=== PATIENT | male | born 1955 | race Asian ===

== ENCOUNTER → 2017-02-24 | Outpatient (CLI) | payer BC ==
[~2017-02-24] MED LIST: ALLO300T2 PO; AMIO0.1T PO; ASCO100061 PO; ASPI81TA28 PO; ATOR-26 PO; BUPRTAB51 PO; CARV12.52 PO; CLON0.5T3 PO; CYAN500T PO; IRBE-37 PO; MAGN500T4 PO; NIFE60TA55 PO; OMEG1200 PO
== END | disposition home or self-care (01) ==
LOC: C.LABSPEC 13:13
PROVIDERS: ATTEND Dermatology
DX: L08.9 Local infection of the skin and subcutaneous tissue, unspecified (principal); L02.426 Furuncle of left lower limb

== ENCOUNTER → 2017-02-24 | Outpatient (CLI) | payer BC | END | disposition home or self-care (01) | LOC: C.PATHSPEC 13:58 | PROVIDERS: ATTEND Dermatology | DX: D23.5 Other benign neoplasm of skin of trunk (principal) ==

== ENCOUNTER → 2017-04-07 | Outpatient (CLI) | payer BC | END | disposition home or self-care (01) | LOC: C.PATHSPEC 17:17 | PROVIDERS: ATTEND Dermatology | DX: L57.0 Actinic keratosis (principal); L81.4 Other melanin hyperpigmentation; L57.8 Other skin changes due to chronic exposure to nonionizing radiation ==

== ENCOUNTER → 2017-04-23 | Outpatient (CLI) | payer BC ==
[2017-04-23 11:10] LABS: ALT/SGPT 18 U/L (12-78); BLOOD UREA NITROGEN 14 mg/dl (7-18); BUN/CREATININE RATIO 12.3 (10-20); CARBON DIOXIDE 27 mmol/L (21-32); CHLORIDE 107 mmol/L (98-107); CHOLESTEROL 159 mg/dl (0-200); GLUCOSE 97 mg/dl (70-99); POTASSIUM 3.6 mmol/L (3.5-5.1); SODIUM 142 mmol/L (136-145); TRIGLYCERIDES 107 mg/dl (0-150); VERY LOW DENSITY LIPOPROT CALC 21 mg/dl
[2017-04-23 11:20] LABS: ALB/GLOB RATIO 0.9 (0.9-2); ALKALINE PHOSPHATASE 112 U/L (45-117); AST/SGOT 14 U/L (15-37); CHOLESTEROL/HDL RATIO 2.7; HDL CHOLESTEROL 60 mg/dl; LDL CHOLESTEROL CALCULATED 78 mg/dl; THYROID STIMULATING HORMONE 0.563 uIu/ml (0.300-4.500)
[2017-04-23 12:20] LABS: CALCIUM 8.5 mg/dl (8.5-10.1)
== END | disposition home or self-care (01) ==
LOC: C.LABBC 08:13
PROVIDERS: ATTEND Family Medicine
DX: E78.5 Hyperlipidemia, unspecified (principal); I25.10 Atherosclerotic heart disease of native coronary artery without angina pectoris; Z79.899 Other long term (current) drug therapy

== ENCOUNTER → 2017-10-26 | Outpatient (CLI) | payer BC | END | disposition home or self-care (01) | LOC: C.LABBC 11:49 | PROVIDERS: ATTEND Psychiatry & Neurology Psychiatry | DX: F33.1 Major depressive disorder, recurrent, moderate (principal) ==

== ENCOUNTER → 2018-01-17 | Outpatient (CLI) | payer OTHER ==
[2018-01-17 10:52] LABS: BASO % 0.9 %; BASO ABS # 0.06 K/uL (0-0.2); EOS % 4.7 %; EOS ABS # 0.32 K/uL (0-0.5); HEMATOCRIT 48.3 % (42-52); HEMOGLOBIN 15.7 g/dL (14.0-18.0); IG# 0.01 K/uL (0.00-0.02); LYMPH % 32.2 %; LYMPH ABS # 2.19 K/uL (1.2-3.4); MEAN CELL VOLUME 91.7 fL (80-100); MEAN CORPUSCULAR HEMOGLOBIN 29.8 pg (25-34); MEAN CORPUSCULAR HGB CONC 32.5 g/dl (32-36); MEAN PLATELET VOLUME 9.7 fL (7.4-10.4); MONO ABS # 0.75 K/uL (0.11-0.59); NEUT % 51.1 %; NEUT ABS # 3.47 K/uL (1.4-6.5); PLATELET COUNT 195 K/uL (130-400); RED CELL DISTRIBUTION WIDTH CV 12.3 % (11.5-14.5); RED CELL DISTRIBUTION WIDTH SD 41.3 fL (36.4-46.3)
[2018-01-17 11:10] LABS: ALBUMIN 3.8 gm/dl (3.4-5.0); ALT/SGPT 20 U/L (12-78); BLOOD UREA NITROGEN 18 mg/dl (7-18); CALCIUM 8.8 mg/dl (8.5-10.1); CARBON DIOXIDE 28 mmol/L (21-32); CHOLESTEROL 171 mg/dl (0-200); CREATININE 1.36 mg/dl (0.60-1.40); GLUCOSE 99 mg/dl (70-99); POTASSIUM 3.9 mmol/L (3.5-5.1); SODIUM 141 mmol/L (136-145)
[2018-01-17 11:13] LABS: ALKALINE PHOSPHATASE 120 U/L (45-117); AST/SGOT 14 U/L (15-37); LDL CHOLESTEROL CALCULATED 96 mg/dl; TOTAL PROTEIN 7.7 gm/dl (6.4-8.2)
== END | disposition home or self-care (01) ==
LOC: C.LABBC 08:33
PROVIDERS: ATTEND Family Medicine Adult Medicine
DX: Z00.00 Encounter for general adult medical examination without abnormal findings (principal); M10.9 Gout, unspecified; I10 Essential (primary) hypertension; E78.5 Hyperlipidemia, unspecified; Z51.81 Encounter for therapeutic drug level monitoring; Z79.899 Other long term (current) drug therapy

== ENCOUNTER 2022-05-26 22:11 | Inpatient (IN) ==
[2022-05-26 23:03] LABS: Basophils # (auto) 0.05 K/uL (0-0.2); Basophils % (auto) 0.6 %; Eosinophils # (auto) 0.25 K/uL (0-0.50); Hematocrit (blood only) 41.1 % (40.1-51.0); Immature Granulocytes # (auto) 0.02 K/uL (0.00-0.02); Immature Granulocytes % (auto) 0.2 %; Lymphocytes % (auto) 14.4 %; Mean Corpuscular Hemoglobin 31.5 pg (25.0-34.0); Mean Corpuscular Hgb Conc 34.1 g/dL (32.0-36.0); Mean Corpuscular Volume 92.4 fL (80.0-100.0); Mean Platelet Volume 8.8 fL (9.4-12.4); Monocytes # (auto) 0.78 K/uL (0.24-0.82); Monocytes % (auto) 9.4 %; Neutrophils # (auto) 6.02 K/uL (1.4-6.5); Neutrophils % (auto) 72.4 %; Platelet Count 152 K/uL (130-400); RDW Coefficient of Variation 11.8 % (11.5-14.5); RDW Standard Deviation 39.9 fL (36.4-46.3); Red Blood Count 4.45 M/uL (4.63-6.08); White Blood Count 8.32 K/ul (4.8-10.8)
--- NOTE | 2022-05-26 23:10 | Emergency Department Note ---
History of Present Illness General Chief complaint: Rectal Bleed Stated complaint: DIVERTICULITIS Time Seen by Provider: 05/26/22 22:58 Source: patient Mode of arrival: ambulatory Limitations: no limitations History of Present Illness Provider complaint: GI bleed Onset (ago): hour(s) 2 Maximum Pain Intensity: 3 This is a 66-year-old male presents emergency department complaining of GI bleed which began 1-1/2 to 2 hours ago. Patient had been seen and evaluated earlier today in the ER for left lower quadrant abdominal pain. He was diagnosed with diverticulitis and started on antibiotics. Patient denies any prior history of GI bleed. States he does get colonoscopies every 3 years due to history of polyps although they have always far been benign. Patient does use aspirin and Plavix daily due to prior history of CABG as well as stroke. Patient states he does feel dizzy and lightheaded when he stands up. Patient states the original pain and left lower quadrant has dulled however he feels a sense of abdominal pressure and bloating throughout. He denies fevers, chills, nausea, vomiting. Pt seen during a time of high acuity and national emergency pandemic while wearing PPE. Home Medications Medication Instructions Recorded Confirmed Type ascorbic acid (vitamin C) 1,000 mg 1,000 mg PO QAM 04/24/19 05/26/22 History tablet (Vitamin C) cyanocobalamin (vitamin B-12) 500 500 mcg PO QAM 04/24/19 05/26/22 History mcg tablet (Vitamin B-12) multivitamin 1 tab PO QAM 04/24/19 05/26/22 History fluticasone propionate 50 1 spray intranasal DAILY PRN 11/07/19 05/26/22 History mcg/actuation nasal Allergy Symptoms spray,suspension nitroglycerin 0.4 mg sublingual 0.4 mg sublingual UD PRN Angina 07/29/20 05/26/22 Rx tablet (Nitrostat) #30 tabs triamcinolone acetonide 0.1 % 1 applic topical DAILY PRN scotal 02/11/21 05/26/22 History topical cream itch lutein 20 mg tablet 20 mg PO QAM 06/11/21 05/26/22 History vitamin E (dl, acetate) 180 mg 45 mg PO QAM 06/11/21 05/26/22 History (400 unit) capsule prednisone 10 mg tablet 10 mg PO TID PRN gout flare ups #9 06/13/21 05/26/22 Rx tabs amlodipine 5 mg tablet 5 mg PO QAM #90 tabs 07/29/21 05/26/22 Rx allopurinol 100 mg tablet 100 mg PO QAM 08/26/21 05/26/22 History aspirin 81 mg tablet,delayed 81 mg PO BID #180 tabs 09/01/21 05/26/22 Rx release (Adult Aspirin Regimen) carvedilol 12.5 mg tablet 12.5 mg PO BID #180 tabs 12/22/21 05/26/22 Rx losartan 50 mg tablet 50 mg PO BID #180 tabs 02/23/22 05/26/22 Rx atorvastatin 80 mg tablet 80 mg PO HS #90 tabs 03/25/22 05/26/22 Rx Garlic 1000mg Tablet 1,000 mg PO HS 05/26/22 05/26/22 History Saccharomyces boulardii 250 mg 250 mg PO BID #20 caps 05/26/22 05/26/22 Rx capsule (Florastor) amiodarone 200 mg tablet 200 mg PO HS 05/26/22 05/26/22 History amoxicillin 875 mg-potassium 1 tab PO TID 10 days #30 tabs 05/26/22 05/26/22 Rx clavulanate 125 mg tablet clopidogrel 75 mg tablet 75 mg PO QAM 05/26/22 05/26/22 History omega 2-xrt-psr-fish oil 1,200 mg 1 cap PO HS 05/26/22 05/26/22 History (144 mg-216 mg) capsule (Fish Oil) Allergies Allergy/AdvReac Type Severity Reaction Status Date / Time valacyclovir Allergy Intermediate severe Verified 05/26/22 12:51 back pains codeine Allergy Mild GI SYMPTOMS Verified 05/26/22 12:51 oxycodone AdvReac Mild Nausea Verified 05/26/22 12:51 sulfamethoxazole AdvReac Mild Nausea Verified 05/26/22 12:51 [From Bactrim] trimethoprim [From Bactrim] AdvReac Mild Nausea Verified 05/26/22 12:51 Past Med/Surg History Medical History Anxiety and depression CAD (coronary artery disease) Gout History of asthma A CHILD HTN (hypertension) Hyperlipidemia Myocardial Infarction 1999 Ocular migraine PVC (premature ventricular contraction) Vertebral artery occlusion Surgical History History of cardiac cath 1999 AND 2018 History of colonoscopy History of coronary artery bypass graft X 4 VESSELS IN 1999 X 3 VESSELS IN 2018 History of tonsillectomy Family History Mother Cardiac disorder Breast cancer Family history of diabetes mellitus Unknown Coronary heart disease Hypertension Father Cardiac disorder Myocardial infarction Denies family history of Ovarian cancer Prostate cancer Colorectal cancer Social History Smoking Status: Never smoker Second Hand Exposure: No; Hx Alcohol Use: Yes Alcohol type: hard liquor Alcohol Intake Frequency: 2-3 x/Week Hx Substance Use: No Preferred Language: Chilean Communication Ability: Effective Visual Impairment: Limited Hearing Ability: Normal Marble Setter Required: No Beliefs That Will Affect Care: None marital status: Current Living Situation: Spouse current occupational status: employed 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 How many Children do You have: 1 Feels Safe at Home: Yes Childhood Exposure to Second-Hand Smoke: No caffeine: No Dental Care, Regularly: Yes Physical Activity Frequency: Daily Physical Activity Frequency Comment: 45 mins treadmill Seatbelt Use: always Sunscreen Use: Yes Assistive Devices: Glasses Review of Systems A total of 10 systems reviewed and were otherwise negative All systems reviewed & are unremarkable except as noted in HPI & below Physical Exam Vital Signs Vital Signs - 24 hr 05/26/22 22:11 05/26/22 22:59 05/27/22 00:22 Temperature 36.5 C Temperature Source Temporal Artery Scan Pulse Rate 77 Pulse Rate [Right Finger] 45 L Pulse Rhythm Regular Pulse Strength Normal Respiratory Rate 18 Respiratory Effort / Characteristics Non-Labored Spontaneous Respiratory Depth Normal Respiratory Pattern Regular Blood Pressure Blood Pressure [Left Arm] 123/75 83/49 L Blood Pressure Mean Blood Pressure Mean [Left Arm] 91 60 Blood Pressure Position Sitting Blood Pressure Position [Left Arm] Lying Pulse Oximetry 100 Oxygen Delivery Method Room Air Sepsis Recent Fever Within 48 Hours No Sepsis New/Unexplained Change in Mental Status N/A Sepsis Action Taken by Nursing No Action Required 05/27/22 00:26 05/27/22 00:27 05/27/22 00:28 Temperature Temperature Source Pulse Rate 43 L 43 L Pulse Rate [Right Finger] Pulse Rhythm Pulse Strength Respiratory Rate 14 14 Respiratory Effort / Characteristics Respiratory Depth Respiratory Pattern Blood Pressure 83/49 L Blood Pressure [Left Arm] Blood Pressure Mean 60 Blood Pressure Mean [Left Arm] Blood Pressure Position Blood Pressure Position [Left Arm] Pulse Oximetry Oxygen Delivery Method Sepsis Recent Fever Within 48 Hours Sepsis New/Unexplained Change in Mental Status Sepsis Action Taken by Nursing 05/27/22 00:28 05/27/22 00:30 05/27/22 00:31 Temperature Temperature Source Pulse Rate 45 L Pulse Rate [Right Finger] Pulse Rhythm Pulse Strength Respiratory Rate 20 Respiratory Effort / Characteristics Respiratory Depth Respiratory Pattern Blood Pressure 83/52 L 87/52 L Blood Pressure [Left Arm] Blood Pressure Mean 62 63 Blood Pressure Mean [Left Arm] Blood Pressure Position Blood Pressure Position [Left Arm] Pulse Oximetry Oxygen Delivery Method Sepsis Recent Fever Within 48 Hours Sepsis New/Unexplained Change in Mental Status Sepsis Action Taken by Nursing 05/27/22 00:31 05/27/22 00:34 05/27/22 00:34 Temperature Temperature Source Pulse Rate 46 L 49 L Pulse Rate [Right Finger] Pulse Rhythm Pulse Strength Respiratory Rate 16 16 Respiratory Effort / Characteristics Respiratory Depth Respiratory Pattern Blood Pressure 88/53 L Blood Pressure [Left Arm] Blood Pressure Mean 64 Blood Pressure Mean [Left Arm] Blood Pressure Position Blood Pressure Position [Left Arm] Pulse Oximetry Oxygen Delivery Method Sepsis Recent Fever Within 48 Hours Sepsis New/Unexplained Change in Mental Status Sepsis Action Taken by Nursing 05/27/22 01:08 05/27/22 02:05 05/27/22 02:33 Temperature Temperature Source Pulse Rate Pulse Rate [Right Finger] 59 L 62 56 L Pulse Rhythm Pulse Strength Respiratory Rate 19 16 16 Respiratory Effort / Characteristics Respiratory Depth Respiratory Pattern Blood Pressure Blood Pressure [Left Arm] 134/76 104/59 L 85/58 L Blood Pressure Mean Blood Pressure Mean [Left Arm] 95 74 67 Blood Pressure Position Blood Pressure Position [Left Arm] Pulse Oximetry 96 94 94 Oxygen Delivery Method Room Air Sepsis Recent Fever Within 48 Hours Sepsis New/Unexplained Change in Mental Status Sepsis Action Taken by Nursing 05/27/22 02:51 05/27/22 03:00 05/27/22 03:30 Temperature Temperature Source Pulse Rate 69 60 Pulse Rate [Right Finger] 63 Pulse Rhythm Pulse Strength Respiratory Rate 12 18 20 Respiratory Effort / Characteristics Respiratory Depth Respiratory Pattern Blood Pressure 100/64 115/71 Blood Pressure [Left Arm] 93/62 L Blood Pressure Mean 76 85 Blood Pressure Mean [Left Arm] 72 Blood Pressure Position Blood Pressure Position [Left Arm] Pulse Oximetry 94 96 98 Oxygen Delivery Method Room Air Sepsis Recent Fever Within 48 Hours Sepsis New/Unexplained Change in Mental Status Sepsis Action Taken by Nursing GENERAL: alert, well appearing, well nourished, no distress, non-toxic EYE EXAM: normal conjunctiva, PERRL and EOM's grossly intact OROPHARYNX: no exudate, no erythema, lips, buccal mucosa, and tongue normal and mucous membranes are moist NECK: supple, no nuchal rigidity, no adenopathy, non-tender LUNGS: Clear to auscultation. Normal chest wall mechanics, no w/r/r HEART: no murmurs, S1 normal and S2 normal ABDOMEN: abdomen soft, non-tender, normo-active bowel sounds, no masses, no rebound or guarding. BACK: Back is symmetrical on inspection and there is no deformity, no midline tenderness, no CVA tenderness. SKIN: no rashes and no bruising UPPER EXTREMITIES: upper extremities are grossly normal. FROM, nml pulses b/l. LOWER EXTREMITIES: No pitting edema. FROM, nml pulses b/l. NEURO EXAM: Normal sensorium, cranial nerves II-XII grossly intact, normal speech, no gross weakness of arms, no gross weakness of legs. Gross sensation intact. Course Course 2355: Patient updated on results. Patient did have another episode of bright red blood per rectum. He states he does still feel dizzy and lightheaded when he stands up. 0030: I was called to the room after patient had another episode of bright red blood per rectum and had dropped both his heart rate and blood pressure. On entering the room, patient's heart rate was in the mid 40s, blood pressure 80s over 50s, patient appealed pale and diaphoretic. IV fluids were opened up to give a bolus, and heart rate was slowly improving. Administered Medications Discontinued Medications Piperacillin Sod/Tazobactam Sod (Zosyn) 4.5 gm in 120 mls @ 240 mls/hr IV NOW ONE Stop: 05/27/22 00:24 Last Infusion: 05/27/22 01:09 Dose: 0 mls/hr Documented By: Admin: 05/27/22 00:32 Dose: 240 mls/hr Documented By: ASW Sodium Chloride (Nss 1000ml) 1,000 mls @ 999 mls/hr IV .Q1H1M ONE Stop: 05/27/22 01:34 Last Infusion: 05/27/22 01:09 Dose: 0 mls/hr Documented By: Admin: 05/27/22 00:36 Dose: 999 mls/hr Documented By: ASW Famotidine (Pepcid 20mg Iv Push) 20 mg in 5 mls @ 2.5 mls/min IV NOW STA Stop: 05/27/22 00:55 Last Admin: 05/27/22 01:09 Dose: 2.5 mls/min Documented By: ASW Sodium Chloride (Nss 1000ml) 1,000 mls @ 999 mls/hr IV .Q1H1M ONE Stop: 05/27/22 03:46 Last Admin: 05/27/22 02:57 Dose: 999 mls/hr Documented By: REGINA Ondansetron HCl (Ondansetron Inj 2 Mg/Ml 2 Ml Vial) 4 mg IV NOW STA Stop: 05/27/22 00:55 Last Admin: 05/27/22 01:09 Dose: 4 mg Documented By: ASW Medical Decision Making Differential Diagnosis Differential diagnosis includes etiologies such as diverticulosis, AVM, coagulopathy, colitis, inflammatory bowel disease, malignancy, Kassy-Vincent tear, esophagitis, peptic ulcer disease, variceal bleed, gastritis, epistaxis, fissure, hemorrhoids, as well as others were entertained. Medical Records Attestation: I reviewed the patient's medical records. Home Medications Current Medication List: was personally reviewed by me Laboratory Data Attestation: I reviewed the patient's lab results. Result diagrams: 05/27/22 00:59 05/26/22 22:54 Lab Results 05/26/22 05/26/22 05/26/22 Range/Units 22:54 22:54 22:54 WBC 8.32 (4.8-10.8) K/ul RBC 4.45 L (4.63-6.08) M/uL Hgb 14.0 (14.0-18.0) g/dl Hct 41.1 (40.1-51.0) % MCV 92.4 (80.0-100.0) fL MCH 31.5 (25.0-34.0) pg MCHC 34.1 (32.0-36.0) g/dL RDW Std Deviation 39.9 (36.4-46.3) fL RDW Coeff of Mayra 11.8 (11.5-14.5) % Plt Count 152 (130-400) K/uL MPV 8.8 L (9.4-12.4) fL Immature Gran % (Auto) 0.2 % Neut % (Auto) 72.4 % Lymph % (Auto) 14.4 % [place] % (Auto) 9.4 % Eos % (Auto) 3.0 % Baso % (Auto) 0.6 % Neut # (Auto) 6.02 (1.4-6.5) K/uL Lymph # (Auto) 1.20 (1.2-3.4) K/uL [place] # (Auto) 0.78 (0.24-0.82) K/uL Eos # (Auto) 0.25 (0-0.50) K/uL Baso # (Auto) 0.05 (0-0.2) K/uL Immature Gran # (Auto) 0.02 (0.00-0.02) K/uL PT 11.3 (9.0-12.0) Seconds INR 1.1 (0.9-1.1) APTT 28.2 (21.0-31.0) Seconds PTT Ratio 1.0 Sodium 136 (136-145) mmol/L Potassium 3.5 (3.5-5.1) mmol/L Chloride 104 (98-107) mmol/L Carbon Dioxide 27 (21-32) mmol/L Anion Gap 5 (3-11) BUN 13 (6-23) mg/dl Creatinine 1.24 (0.6-1.4) mg/dl Est Cr Clr Drug Dosing 54.0 ml/min Est GFR ( Amer) 69.3 ml/min Est GFR (Non-Af Amer) 59.8 ml/min BUN/Creatinine Ratio 10.5 (10-20) Glucose 119 H (70-99(Fasting)) mg/dl Lactate (0.4-2.0) mmol/L Calcium 8.1 L (8.5-10.1) mg/dl Magnesium 1.9 (1.7-2.4) mg/dl Total Bilirubin 1.4 H (0.2-1.0) mg/dl Direct Bilirubin 0.3 H (0-0.2) mg/dl AST 18 (13-39) U/L ALT 21 (7-52) U/L Alkaline Phosphatase 79 (34-104) U/L Total Protein 6.0 (6.0-8.3) gm/dl Albumin 3.6 (3.4-5.0) gm/dl Lipase 4 L (11-82) U/L Procalcitonin (0-0.5) ng/ml SARS-CoV-2, RNA, NAAT (NEGATIVE) Blood Type Antibody Screen 05/26/22 05/26/22 05/26/22 Range/Units 22:54 23:12 23:19 WBC (4.8-10.8) K/ul RBC (4.63-6.08) M/uL Hgb (14.0-18.0) g/dl Hct (40.1-51.0) % MCV (80.0-100.0) fL MCH (25.0-34.0) pg MCHC (32.0-36.0) g/dL RDW Std Deviation (36.4-46.3) fL RDW Coeff of Mayra (11.5-14.5) % Plt Count (130-400) K/uL MPV (9.4-12.4) fL Immature Gran % (Auto) % Neut % (Auto) % Lymph % (Auto) % [place] % (Auto) % Eos % (Auto) % Baso % (Auto) % Neut # (Auto) (1.4-6.5) K/uL Lymph # (Auto) (1.2-3.4) K/uL [place] # (Auto) (0.24-0.82) K/uL Eos # (Auto) (0-0.50) K/uL Baso # (Auto) (0-0.2) K/uL Immature Gran # (Auto) (0.00-0.02) K/uL PT (9.0-12.0) Seconds INR (0.9-1.1) APTT (21.0-31.0) Seconds PTT Ratio Sodium (136-145) mmol/L Potassium (3.5-5.1) mmol/L Chloride (98-107) mmol/L Carbon Dioxide (21-32) mmol/L Anion Gap (3-11) BUN (6-23) mg/dl Creatinine (0.6-1.4) mg/dl Est Cr Clr Drug Dosing ml/min Est GFR ( Amer) ml/min Est GFR (Non-Af Amer) ml/min BUN/Creatinine Ratio (10-20) Glucose (70-99(Fasting)) mg/dl Lactate 0.8 (0.4-2.0) mmol/L Calcium (8.5-10.1) mg/dl Magnesium (1.7-2.4) mg/dl Total Bilirubin (0.2-1.0) mg/dl Direct Bilirubin (0-0.2) mg/dl AST (13-39) U/L ALT (7-52) U/L Alkaline Phosphatase (34-104) U/L Total Protein (6.0-8.3) gm/dl Albumin (3.4-5.0) gm/dl Lipase (11-82) U/L Procalcitonin < 0.05 (0-0.5) ng/ml SARS-CoV-2, RNA, NAAT (NEGATIVE) Blood Type O Positive Antibody Screen NEGATIVE 05/27/22 05/27/22 Range/Units 00:33 00:59 WBC (4.8-10.8) K/ul RBC (4.63-6.08) M/uL Hgb 12.4 L (14.0-18.0) g/dl Hct 37.2 L (40.1-51.0) % MCV (80.0-100.0) fL MCH (25.0-34.0) pg MCHC (32.0-36.0) g/dL RDW Std Deviation (36.4-46.3) fL RDW Coeff of Mayra (11.5-14.5) % Plt Count (130-400) K/uL MPV (9.4-12.4) fL Immature Gran % (Auto) % Neut % (Auto) % Lymph % (Auto) % [place] % (Auto) % Eos % (Auto) % Baso % (Auto) % Neut # (Auto) (1.4-6.5) K/uL Lymph # (Auto) (1.2-3.4) K/uL [place] # (Auto) (0.24-0.82) K/uL Eos # (Auto) (0-0.50) K/uL Baso # (Auto) (0-0.2) K/uL Immature Gran # (Auto) (0.00-0.02) K/uL PT (9.0-12.0) Seconds INR (0.9-1.1) APTT (21.0-31.0) Seconds PTT Ratio Sodium (136-145) mmol/L Potassium (3.5-5.1) mmol/L Chloride (98-107) mmol/L Carbon Dioxide (21-32) mmol/L Anion Gap (3-11) BUN (6-23) mg/dl Creatinine (0.6-1.4) mg/dl Est Cr Clr Drug Dosing ml/min Est GFR ( Amer) ml/min Est GFR (Non-Af Amer) ml/min BUN/Creatinine Ratio (10-20) Glucose (70-99(Fasting)) mg/dl Lactate (0.4-2.0) mmol/L Calcium (8.5-10.1) mg/dl Magnesium (1.7-2.4) mg/dl Total Bilirubin (0.2-1.0) mg/dl Direct Bilirubin (0-0.2) mg/dl AST (13-39) U/L ALT (7-52) U/L Alkaline Phosphatase (34-104) U/L Total Protein (6.0-8.3) gm/dl Albumin (3.4-5.0) gm/dl Lipase (11-82) U/L Procalcitonin (0-0.5) ng/ml SARS-CoV-2, RNA, NAAT NEGATIVE (NEGATIVE) Blood Type Antibody Screen ECG Data Attestation: I personally reviewed and interpreted this ECG as follows: Indication: + abdominal pain Rate (beats per minute): 62 Rhythm: + normal sinus ECG Intervals/blocks: + First degree AV block, + Normal QRS and + Normal QT ECG [place]: + Left axis deviation ECG ST segments: + Nonspecific ST abnormalities MDM Narrative An order was placed for continuous cardiac monitoring. The monitor shows a rate of 68__ with __normal sinus_ rhythm. This is a 66-year-old male presents emergency department for the second time in 24 hours due to concern for recurrent GI bleed. Patient recently seen and evaluated with labs and CT imaging diagnosed with uncomplicated diverticulitis. No prior history of GI bleed. Patient had several episodes at home, and upon presenting the emergency room had several more episodes of bright red blood per rectum. Patient did have an episode that appeared to be a vasovagal reaction with bradycardia and hypotension, diaphoresis and pallor. This did resolve. Patient was given IV fluids. Initial labs reassuring with stable H&H. Following several episodes of bright red blood per rectum, repeat H&H drawn and sent and was mildly decreased. No elevation of BUN. I do not suspect upper GI bleed. Patient does use aspirin and Plavix due to prior history of CABG and CVA. No focal abdominal pain. Patient was given another dose of IV antibiotics in order to help keep him n.p.o. as a precaution. Patient otherwise was hemodynamically stable. Type and screen sent as a precaution. COVID-negative. Lactic acid and procalcitonin negative. We discussed all results at bedside. Case discussed with hospitalist for additional evaluation and management. Impression & Plan GI bleed, Diverticulitis, Abdominal pain Discharge Plan Visit Data Chief Complaint: Rectal Bleed Stated Complaint: DIVERTICULITIS ED Provider: Jakcie Cuellar Discharge Problem: GI bleed, Diverticulitis, Abdominal pain Forms Stand Alone Forms: [facility] [place] [employer] Prescriptions Prescriptions: No Action prednisone 10 mg tablet 10 mg PO TID PRN (Reason: gout flare ups) Qty: 9 0RF amlodipine 5 mg tablet 5 mg PO QAM Qty: 90 3RF aspirin [Adult Aspirin Regimen] 81 mg tablet,delayed release (DR/EC) 81 mg PO BID Qty: 180 1RF carvedilol 12.5 mg tablet 12.5 mg PO BID Qty: 180 3RF Rx Instructions: must administer with a meal/food losartan 50 mg tablet 50 mg PO BID Qty: 180 3RF atorvastatin 80 mg tablet 80 mg PO HS Qty: 90 3RF nitroglycerin [Nitrostat] 0.4 mg tablet, sublingual 0.4 mg sublingual UD PRN (Reason: Angina) Qty: 30 1RF triamcinolone acetonide 0.1 % cream 1 applic topical DAILY PRN (Reason: scotal itch) vitamin E (dl, acetate) 400 unit capsule 45 mg PO QAM lutein 20 mg tablet 20 mg PO QAM Rx Instructions: give with meal/snack multivitamin Tablet 1 tab PO QAM ascorbic acid (vitamin C) [Vitamin C] 1,000 mg Tablet 1,000 mg PO QAM cyanocobalamin (vitamin B-12) [Vitamin B-12] 500 mcg Tablet 500 mcg PO QAM fluticasone propionate 50 mcg/actuation spray,suspension 1 spray INTRANASAL DAILY PRN (Reason: Allergy Symptoms) allopurinol 100 mg tablet 100 mg PO QAM omega 7-vaa-uts-fish oil [Fish Oil] 1,200 (144-216) mg Capsule 1 cap PO HS Garlic 1000mg Tablet 1,000 mg PO HS amiodarone 200 mg tablet 200 mg PO HS clopidogrel 75 mg tablet 75 mg PO QAM Saccharomyces boulardii [Florastor] 250 mg capsule 250 mg PO BID Qty: 20 0RF amoxicillin-pot clavulanate 875-125 mg tablet 1 tab PO TID 10 Days Qty: 30 0RF Referrals Referrals: Faizan Negrete DO [Primary Care Provider] -
[2022-05-26 23:15] LABS: INR 1.1 (0.9-1.1); Partial Thromboplastin Time 28.2 Seconds (21.0-31.0); Prothrombin Time 11.3 Seconds (9.0-12.0)
[2022-05-26 23:25] LABS: Albumin Level 3.6 gm/dl (3.4-5.0); BUN Creatinine Ratio 10.5 (10-20); Bilirubin Direct 0.3 mg/dl (0-0.2); Bilirubin,Total 1.4 mg/dl (0.2-1.0); Calcium 8.1 mg/dl (8.5-10.1); Est GFR (African American) 69.3 ml/min; Est GFR (Non-African American) 59.8 ml/min; Potassium 3.5 mmol/L (3.5-5.1)
[2022-05-26] MEDS ORDERED: PIPERACILLIN/TAZOBACTAM 4.5 GM/120 ML BAG IV ONE (23:55)
--- NOTE | 2022-05-27 00:26 | History & Physical Report ---
Date of Service May 27, 2022 Assessment & Plan (1) Acute lower gastrointestinal bleeding: Plan: Acute-onset bright red blood per rectum, with at least 4-5 episodes in last 6 hours. In context of several days of abdominal pain, presumably due to acute diverticulitis (see below). At this point, most likely source is from diverticulitis, although this is atypical as bleeding typically occurs with diverticulosis rather than diverticulitis. Additionally patient has completely thrombosed internal iliac arteries, raising suspicion for other abdominal arterial disease and possible mesenteric ischemia as source of bleeding, although less likely. Requires further evaluation. - admit to PCU - CTA A/P ordered in AM to evaluate for ischemia (24 hours after previous study) - Hgb 14 --> 12.4 following recurrent episodes of hematochezia - s/p NSS 1L bolus - continue with LR @125cc/hr - s/p Pepcid 20mg IV in ED - continue with Protonix 40mg IV daily for now (patient reports heartburn currently) - GI consulted - appreciate recs - NPO pending GI evaluation - trend H/H Q4H - transfuse for Hgb <8 (given symptoms) (2) Hypotension: Plan: Resolved following NSS 1L bolus. - Continue with maintenance IVFs as stated above - hold home BP meds (3) Thromboembolism of internal iliac artery: Plan: New finding per CT A/P done yesterday. Patient does not have known cancer, has had stable weight, is physically active, and denies family h/o clotting disorders. - hypercoagulability panel ordered - consulted Heme/Onc - appreciate recs (4) Diverticulitis: Plan: Several days of LLQ abdominal pain, with uncomplicated diverticulitis (no perforation or abscess) per CT A/P. Was started on Augmentin yesterday. - started on Zosyn in ED - continue for now - trend blood cx and adjust abx as necessary (5) CAD (coronary artery disease): Plan: Chronic. S/p CABG in 1999. Follows with [facility]. - Hold home Aspirin and Clopidogrel due to acute GI bleed. (6) H/O: stroke: Plan: In 2020. Follows with [facility] [place] [facility]. - hold anti-platelet therapy as stated above (7) Vertebral artery occlusion: Plan: Chronic right vertebral artery occlusion. ?Hypercoagulable disorder. 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 F/w [facility]. 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 (10) HTN (hypertension): Plan: Hold home Amlodipine, Carvedilol and Losartan, as stated above (11) Dyslipidemia: Plan: Continue home Atorvastatin (12) Gout: Plan: Hold Allopurinol for now due to NPO/GI bleed. Plan FEN/GI: NPO, LR @125cc/hr DVT Prophylaxis: SCDs, no chemoppx due to GI bleed Code Status: full code Disposition: PCU History of Present Illness Chief Complaint: rectal bleed Primary Care Provider: Faizan Negrete DO Omid Reed is a 66yo male with PMHx significant for CAD (CABG in 1999, on Aspirin/Plavix), h/o CVA in 2020, frequent PVCs (loop recorder in place, on Amiodarone), 1st degree AV block, restrictive lung disease (due to Amio), HTN, HLD and gout, who presented to [facility] ED on 05/27 for concern of GI bleed that star mirlande several hours ago. Patient was in the ED yesterday for LLQ abdominal pain - was diagnosed with diverticulitis and discharged from ED on Augmentin. Patient reports that his pain was mildly improved before bleeding began, although he does report development of generalized lower abdominal fullness before bleeding began. Reports associated dizziness/lightheadedness. Denies N/V or hematemesis. Denies fever/chills. Denies recent travel or change in diet. Does not eat out. Denies h/o GI bleed. Has colonoscopies every 3 years for polyps - have always been benign. Patient is usually very active - usually walks on treadmill ~1hr per day; however he stopped several days ago due to abdominal pain. He denies family history of clotting disorders or bleeding. Denies smoking or drug use. Only has a drink occasionally. In the ED the patient was afebrile and initially hemodynamically stable on room air. However he had several episodes of large BMs with bright red blood with resultant decrease in BP to 80s/50s. He received NSS 1L bolus and pressures improved to 120s/80s. Labs significant for TBili 1.4. Hgb is 14 although down from 15.6 earlier in the day. Otherwise CBC/CMP/lipase unremarkable. Of note, CT A/P done yesterday shows right colon diverticulitis without abscess or perforation. 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 Patient was given NSS 1L bolus, as stated above, Zofran x1, Pepcid IV, and Zosyn in ED. Blood cx collected before initiation of abx. Allergies Allergy/AdvReac Type Severity Reaction Status Date / Time valacyclovir Allergy Intermediate severe Verified 05/26/22 12:51 back pains codeine Allergy Mild GI SYMPTOMS Verified 05/26/22 12:51 oxycodone AdvReac Mild Nausea Verified 05/26/22 12:51 sulfamethoxazole AdvReac Mild Nausea Verified 05/26/22 12:51 [From Bactrim] trimethoprim [From Bactrim] AdvReac Mild Nausea Verified 05/26/22 12:51 Home Medications Medication Instructions Recorded Confirmed Type ascorbic acid (vitamin C) 1,000 mg 1,000 mg PO QAM 04/24/19 05/26/22 History tablet (Vitamin C) cyanocobalamin (vitamin B-12) 500 500 mcg PO QAM 04/24/19 05/26/22 History mcg tablet (Vitamin B-12) multivitamin 1 tab PO QAM 04/24/19 05/26/22 History fluticasone propionate 50 1 spray intranasal DAILY PRN 11/07/19 05/26/22 History mcg/actuation nasal Allergy Symptoms spray,suspension nitroglycerin 0.4 mg sublingual 0.4 mg sublingual UD PRN Angina 07/29/20 05/26/22 Rx tablet (Nitrostat) #30 tabs triamcinolone acetonide 0.1 % 1 applic topical DAILY PRN scotal 02/11/21 05/26/22 History topical cream itch lutein 20 mg tablet 20 mg PO QAM 06/11/21 05/26/22 History vitamin E (dl, acetate) 180 mg 45 mg PO QAM 06/11/21 05/26/22 History (400 unit) capsule prednisone 10 mg tablet 10 mg PO TID PRN gout flare ups #9 08/06/21 07/19/22 Rx tabs amlodipine 5 mg tablet 5 mg PO QAM #90 tabs 07/29/21 05/26/22 Rx allopurinol 100 mg tablet 100 mg PO QAM 08/26/21 05/26/22 History aspirin 81 mg tablet,delayed 81 mg PO BID #180 tabs 09/01/21 05/26/22 Rx release (Adult Aspirin Regimen) carvedilol 12.5 mg tablet 12.5 mg PO BID #180 tabs 12/22/21 05/26/22 Rx losartan 50 mg tablet 50 mg PO BID #180 tabs 02/23/22 05/26/22 Rx atorvastatin 80 mg tablet 80 mg PO HS #90 tabs 03/25/22 05/26/22 Rx Garlic 1000mg Tablet 1,000 mg PO HS 05/26/22 05/26/22 History Saccharomyces boulardii 250 mg 250 mg PO BID #20 caps 05/26/22 05/26/22 Rx capsule (Florastor) amiodarone 200 mg tablet 200 mg PO HS 05/26/22 05/26/22 History amoxicillin 875 mg-potassium 1 tab PO TID 10 days #30 tabs 05/26/22 05/26/22 Rx clavulanate 125 mg tablet clopidogrel 75 mg tablet 75 mg PO QAM 05/26/22 05/26/22 History omega 0-mib-vcs-fish oil 1,200 mg 1 cap PO HS 05/26/22 05/26/22 History (144 mg-216 mg) capsule (Fish Oil) Past Med/Surg History Medical History Anxiety and depression CAD (coronary artery disease) Gout History of asthma A CHILD HTN (hypertension) Hyperlipidemia Myocardial Infarction 1999 Ocular migraine PVC (premature ventricular contraction) Vertebral artery occlusion Surgical History History of cardiac cath 1999 AND 2018 History of colonoscopy History of coronary artery bypass graft X 4 VESSELS IN 1999 X 3 VESSELS IN 2018 History of tonsillectomy Family History Mother Cardiac disorder Breast cancer Family history of diabetes mellitus Unknown Coronary heart disease Hypertension Father Cardiac disorder Myocardial infarction Denies family history of Ovarian cancer Prostate cancer Colorectal cancer Social History Smoking Status: Unknown if ever smoked Second Hand Exposure: No; Hx Alcohol Use: Yes Alcohol type: beer Alcohol Intake Frequency: 2-3 x/Week Hx Substance Use: No Preferred Language: Arabic Communication Ability: Effective Visual Impairment: Limited Hearing Ability: Normal Configuration Developer Required: No Beliefs That Will Affect Care: None marital status: Current Living Situation: Spouse current occupational status: employed 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 NAD. Cooperative. HEENT: Atraumatic, normocephalic. Pulm: CTAB A&P. -wheezes, -rales, -rhonchi. Symmetrical chest rise. No increase work of breathing. No respiratory distress. Cardiac: RRR, -mrg. Radial pulses intact and symmetrical. Abdominal: soft, non-distended, mild tenderness to palpation of LLQ without guarding or rebound, NA BS x 4 Skin: warm, dry, no rash Results & Data Results & Data ([facility]) Vital Signs (Past 12 Hours) Vital Signs Temp Pulse Resp BP Pulse Ox O2 Del Method 05/26/22 22:59 123/75 05/26/22 22:11 36.5 C 77 18 100 Room Air Supervising Physician Co-Signing Physician Notes Attending addendum: I have physically seen this patient, have supervised the medical residents activities, and agree with the H&P unless as otherwise noted. Assessment and Plan: Bright red blood per rectum/acute right colonic diverticulitis- 4-5 episodes in the previous 6 hours Initial hemoglobin trending down from 14-12.4 NPO LR at 125 mils per hour Protonix 40 mg IV daily H&H every 4 hours Type and screen Zosyn 4.5 g IV every 8 hours Consult gastroenterology Hypotension- Responded to a 1 L normal saline bolus Continue LR at 125 MLS per hour, and bolus as needed CAD/hypertension/history of CABG/history of CVA/- Hold aspirin and clopidogrel due to acute GI bleeding Hold amlodipine, carvedilol and losartan due to hypotension No reversal at this time Complete thrombosis of internal iliac arteries/thrombosis of right vertebral artery- Concern regarding possible SMA thrombosis leading to ischemic bleeding No issues noted on CT done earlier in the morning CTA abdomen pelvis within 24 hours after initial IV contrast exam Order hypercoagulable arterial work-up Remaining orders and notations as noted Resident Activity Tracking Resident Involvement: Resident Care Provided Care Provided: Adult Hospital Medicine (1) CAD (coronary artery disease) Associated angina: without angina Coronary Disease-Associated Artery/Lesion type: unspecified vessel or lesion type [place] vs. transplanted heart: [place] heart Qualified Code(s): I25.10 - Atherosclerotic heart disease of [place] coronary artery without angina pectoris (2) HTN (hypertension) Hypertension type: essential hypertension Qualified Code(s): I10 - Essential (primary) hypertension
[2022-05-27] MEDS ORDERED: SODIUM CHLORIDE 0.9% 1000ML 1,000 ML IV ONE ×2 (00:34→02:46)
[2022-05-27 00:47] LABS: Magnesium 1.9 mg/dl (1.7-2.4)
[2022-05-27] MEDS ORDERED: ONDANSETRON INJ 2 MG/ML 2 ML VIAL IV STA (00:54)
[2022-05-27] MEDS ORDERED: FAMOTIDINE 20MG IV PUSH 20 MG/5 ML SYR IV STA (00:54)
[2022-05-27 01:08] LABS: Hematocrit (blood only) 37.2 % (40.1-51.0); Hemoglobin 12.4 g/dl (14.0-18.0)
[2022-05-27] MEDS: PIPERACILLIN/TAZOBACTAM 3.375 GM in DEXTROSE 5% 100 ML IV SCH ×3 (05:37→22:43)
[2022-05-27] MEDS: LACTATED RINGER'S 1,000 ML IV SCH ×2 (05:37→12:47)
[2022-05-27 06:04] LABS: Basophils # (auto) 0.03 K/uL (0-0.2); Basophils % (auto) 0.4 %; Eosinophils # (auto) 0.04 K/uL (0-0.50); Eosinophils % (auto) 0.5 %; Hematocrit (blood only) 33.3 % (40.1-51.0); Hemoglobin 11.2 g/dl (14.0-18.0); Immature Granulocytes # (auto) 0.02 K/uL (0.00-0.02); Immature Granulocytes % (auto) 0.3 %; Lymphocytes # (auto) 0.88 K/uL (1.2-3.4); Lymphocytes % (auto) 11.9 %; Mean Corpuscular Hemoglobin 31.5 pg (25.0-34.0); Mean Corpuscular Hgb Conc 33.6 g/dL (32.0-36.0); Mean Corpuscular Volume 93.5 fL (80.0-100.0); Mean Platelet Volume 9.1 fL (9.4-12.4); Monocytes # (auto) 0.58 K/uL (0.24-0.82); Monocytes % (auto) 7.8 %; Neutrophils # (auto) 5.85 K/uL (1.4-6.5); Neutrophils % (auto) 79.1 %; Platelet Count 128 K/uL (130-400); RDW Coefficient of Variation 11.9 % (11.5-14.5); Red Blood Count 3.56 M/uL (4.63-6.08)
[2022-05-27 06:24] LABS: BUN Creatinine Ratio 13.3 (10-20); Calcium 7.1 mg/dl (8.5-10.1); Creatinine Clr Calc Pharmacy 59.3 ml/min; Est GFR (African American) 77.5 ml/min; Est GFR (Non-African American) 66.9 ml/min; Magnesium 1.8 mg/dl (1.7-2.4)
--- NOTE | 2022-05-27 06:46 | Hospitalist Progress Note ---
Date of Service May 27, 2022 Assessment & Plan (1) Acute lower gastrointestinal bleeding: Plan: 66yo male with PMHx significant for CAD (CABG in 1999, on Aspirin/Plavix), h/o CVA in 2020, frequent PVCs (loop recorder in place, on Amiodarone), 1st degree AV block, restrictive lung disease (due to Amio), HTN, HLD and gout, who presented to [facility] ED on 05/27 for concern of GI bleed (1) Acute lower gastrointestinal bleeding: Acute-onset bright red blood per rectum, with at least 4-5 episodes in last 6 hours. In context of several days of abdominal pain, presumably due to acute diverticulitis (see below). At this point, most likely source is from diverticulitis, although this is atypical as bleeding typically occurs with diverticulosis rather than diverticulitis. Additionally patient has completely thrombosed internal iliac arteries, raising suspicion for other abdominal arterial disease and possible mesenteric ischemia as source of bleeding, although less likely given wrong distribution. Requires further evaluation. - admit to PCU - CTA A/P 1. 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 2. Thrombosis with complete occlusion of the left internal iliac artery. 3. Additional atherosclerotic disease is present. 4. There is again cholelithiasis. 5. There is again sigmoid diverticulosis without evidence for diverticulitis. - Hgb 14 --> 10.7 following recurrent episodes of hematochezia - s/p NSS 1L bolus -dc'd IVF - s/p Pepcid 20mg IV in ED, placed on protonix drip --> dc'd - GI consulted - Continue IV Zosyn When ready for a diet, would advance to liquids then ultimately advance to low residue Colonoscopy in 6-8 weeks; We discussed that a colonoscopy performed while patient has active diverticulitis increases the risk of bowel perforation - resumed liquid diet - trend H/H - transfuse for Hgb <8 (given symptoms) (2) Hypotension: Resolved following NSS 1L bolus. - hold home BP meds (3) Thromboembolism of internal iliac artery: New finding per CT A/P done yesterday. Patient does not have known cancer, has had stable weight, is physically active, and denies family h/o clotting disorders. - hypercoagulability panel ordered - consulted Heme/Onc - appreciate recs (4) Diverticulitis: Several days of LLQ abdominal pain, with uncomplicated diverticulitis (no perforation or abscess) per CT A/P. Was started on Augmentin yesterday. - started on Zosyn in ED - continue for now - trend blood cx and adjust abx as necessary (5) CAD (coronary artery disease): Chronic. S/p CABG in 1999. Follows with [facility] Cardiology. - Hold home Aspirin and Clopidogrel due to acute GI bleed. (6) H/O: stroke: In 2020. Follows with [facility] Neurology. - hold anti-platelet therapy as stated above (7) Vertebral artery occlusion: Chronic right vertebral artery occlusion. ?Hypercoagulable disorder. 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 F/w [facility] Cardiology. 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 (10) HTN (hypertension): Hold home Amlodipine, Carvedilol and Losartan, as stated above (11) Dyslipidemia: Continue home Atorvastatin (12) Gout: Hold Allopurinol for now due to NPO/GI bleed. Plan FEN/GI: full liqiud diet DVT Prophylaxis: SCDs, no chemoppx due to GI bleed Code Status: full code Disposition: med/tele (2) Hypotension: (3) Thromboembolism of internal iliac artery: (4) Diverticulitis: (5) CAD (coronary artery disease): (6) H/O: stroke: (7) Vertebral artery occlusion: (8) Frequent PVCs: (9) First degree atrioventricular block: (10) HTN (hypertension): (11) Dyslipidemia: (12) Gout: Admission and Anticipated Discharge Date Admission Date: May 27, 2022 Supervising Physician Co-Signing Physician Notes I personally examined the patient and verified all [place] points of history and exam, discussed case, and agree with decision making with Dr Pretty. Feeling better, is still pooping some blood but notes that it is a lot less, less overall red starting to be mixed with some brown. Otherwise feeling okay. Vitals noted, in general he is awake and alert pleasant no distress. HEENT normocephalic atraumatic mucous membranes moist. Breathing unlabored no accessory muscle use good effort. Skin shows no rashes no pallor or icterus. Neuro without focal deficits. Lower GI bleedingoddly it does seem most consistent with diverticulitis and active bleedingcontinue antibiotics, continue to follow hemodynamics and hemoglobinbut fortunately while he does show acute blood loss anemia, he is hemodynamically stable and shows no indications for transfusion. Vascular studies fortunately did not show mesenteric ischemiawhich, of course, was a valid concern initially. Iliac aneurysm likely chronicno leg symptoms. Outpatient follow-up. Continue current management, otherwise as above Subjective Patient seen at bedside, calm comporable cooperative, he states his abdominal pain is better still having red BM however becoming more brown. Patient understands he is on Abx to treat his diverticulitis, asked clarifying questions on what diverticulitis is. Patient has met with GI, understands they will defer colonoscpy until his diverticulitis improves, we will continue to monitor his symptoms. No acute concerns at this time, he looks forward to retiring 06/07. Patient denies any weakness of abd muscles legs, any loss of sensation along belly or legs, any numbness tingling from waist down, any incontinence of bowel or bladder. He has not been informed of iliac vessel occlusion before. Review of Systems Review of Systems: Positive Diarrhea Negative fever chills Negative headache dizziness Negative chest pain palpitations SOB Negative nausea vomitting constipation Negative numbness tingling rash swelling Physical Exam Constitutional: WD/WN, vitals as above Eyes: PERRL, conjunctivae normal, anicteric sclerae ENMT: external ear and nose normal, oropharynx normal Neck: trachea midline, no thyromegaly Respiratory: normal respiratory effort, lungs clear to auscultation Cardiovascular: RRR, no murmur, no edema Chest (Breasts): Chest: normal inspection of chest Gastrointestinal (Abdomen): normal bowel sounds, soft, nontender, no hepatosplenomegaly Skin: no rashes, warm and dry Results & Data Results & Data ([facility]) Vital Signs (Past 12 Hours) Vital Signs Temp Pulse Pulse Resp BP BP Pulse Ox 05/27/22 05:00 54 L 17 96 05/27/22 05:00 96/60 L 05/27/22 04:11 36.8 C 60 19 98 05/27/22 04:11 122/70 05/27/22 04:24 36.8 C 57 L 14 122/70 98 05/27/22 03:30 60 20 115/71 98 05/27/22 03:00 69 18 100/64 96 05/27/22 02:51 63 12 93/62 L 94 05/27/22 02:33 56 L 16 85/58 L 94 05/27/22 02:05 62 16 104/59 L 94 05/27/22 01:08 59 L 19 134/76 96 05/27/22 00:34 49 L 16 05/27/22 00:34 88/53 L 05/27/22 00:31 46 L 16 05/27/22 00:31 87/52 L 05/27/22 00:30 45 L 20 05/27/22 00:28 83/52 L 05/27/22 00:28 43 L 14 05/27/22 00:27 43 L 14 05/27/22 00:26 83/49 L 05/27/22 00:22 45 L 83/49 L 05/26/22 22:59 123/75 05/26/22 22:11 36.5 C 77 18 100 O2 Del Method 05/27/22 05:00 05/27/22 05:00 05/27/22 04:11 05/27/22 04:11 05/27/22 04:24 Room Air 05/27/22 03:30 05/27/22 03:00 05/27/22 02:51 Room Air 05/27/22 02:33 05/27/22 02:05 Room Air 05/27/22 01:08 05/27/22 00:34 05/27/22 00:34 05/27/22 00:31 05/27/22 00:31 05/27/22 00:30 05/27/22 00:28 05/27/22 00:28 05/27/22 00:27 05/27/22 00:26 05/27/22 00:22 05/26/22 22:59 05/26/22 22:11 Room Air Diagnostic Findings Laboratory Results WBC 7.40 K/ul (4.8-10.8) 05/27/22 05:52 RBC 3.56 M/uL (4.63-6.08) L 05/27/22 05:52 Hgb 10.7 g/dl (14.0-18.0) L 05/27/22 16:58 Hct 32.2 % (40.1-51.0) L 05/27/22 16:58 MCV 93.5 fL (80.0-100.0) 05/27/22 05:52 MCH 31.5 pg (25.0-34.0) 05/27/22 05:52 MCHC 33.6 g/dL (32.0-36.0) 05/27/22 05:52 RDW Std Deviation 41.0 fL (36.4-46.3) 05/27/22 05:52 RDW Coeff of Mayra 11.9 % (11.5-14.5) 05/27/22 05:52 Plt Count 128 K/uL (130-400) L 05/27/22 05:52 MPV 9.1 fL (9.4-12.4) L 05/27/22 05:52 Immature Gran % (Auto) 0.3 % 05/27/22 05:52 Neut % (Auto) 79.1 % 05/27/22 05:52 Lymph % (Auto) 11.9 % 05/27/22 05:52 [place] % (Auto) 7.8 % 05/27/22 05:52 Eos % (Auto) 0.5 % 05/27/22 05:52 Baso % (Auto) 0.4 % 05/27/22 05:52 Neut # (Auto) 5.85 K/uL (1.4-6.5) 05/27/22 05:52 Lymph # (Auto) 0.88 K/uL (1.2-3.4) L 05/27/22 05:52 [place] # (Auto) 0.58 K/uL (0.24-0.82) 05/27/22 05:52 Eos # (Auto) 0.04 K/uL (0-0.50) 05/27/22 05:52 Baso # (Auto) 0.03 K/uL (0-0.2) 05/27/22 05:52 Immature Gran # (Auto) 0.02 K/uL (0.00-0.02) 05/27/22 05:52 PT 11.3 Seconds (9.0-12.0) 05/26/22 22:54 INR 1.1 (0.9-1.1) 05/26/22 22:54 APTT 28.2 Seconds (21.0-31.0) 05/26/22 22:54 PTT Ratio 1.0 05/26/22 22:54 LA PTT Screen Cancelled 05/27/22 05:52 Protein C Activity Cancelled 05/27/22 05:52 Protein S Activity Cancelled 05/27/22 05:52 Antithrombin III Activ Cancelled 05/27/22 05:52 Sodium 138 mmol/L (136-145) 05/27/22 05:52 Potassium 4.0 mmol/L (3.5-5.1) 05/27/22 05:52 Chloride 109 mmol/L (98-107) H 05/27/22 05:52 Carbon Dioxide 26 mmol/L (21-32) 05/27/22 05:52 Anion Gap 3 (3-11) 05/27/22 05:52 BUN 15 mg/dl (6-23) 05/27/22 05:52 Creatinine 1.13 mg/dl (0.6-1.4) 05/27/22 05:52 Est Cr Clr Drug Dosing 59.3 ml/min 05/27/22 05:52 Est GFR ( Amer) 77.5 ml/min 05/27/22 05:52 Est GFR (Non-Af Amer) 66.9 ml/min 05/27/22 05:52 BUN/Creatinine Ratio 13.3 (10-20) 05/27/22 05:52 Glucose 106 mg/dl (70-99(Fasting)) H 05/27/22 05:52 Lactate 0.8 mmol/L (0.4-2.0) 05/26/22 23:12 Calcium 7.1 mg/dl (8.5-10.1) L 05/27/22 05:52 Ionized Calcium 1.10 mmol/L (1.12-1.32) L 05/27/22 07:22 Magnesium 1.8 mg/dl (1.7-2.4) 05/27/22 05:52 Total Bilirubin 1.4 mg/dl (0.2-1.0) H 05/26/22 22:54 Direct Bilirubin 0.3 mg/dl (0-0.2) H 05/26/22 22:54 AST 18 U/L (13-39) 05/26/22 22:54 ALT 21 U/L (7-52) 05/26/22 22:54 Alkaline Phosphatase 79 U/L (34-104) 05/26/22 22:54 Total Protein 6.0 gm/dl (6.0-8.3) 05/26/22 22:54 Albumin 3.6 gm/dl (3.4-5.0) 05/26/22 22:54 Lipase 4 U/L (11-82) L 05/26/22 22:54 Homocysteine Cancelled 05/27/22 05:52 Procalcitonin < 0.05 ng/ml (0-0.5) 05/26/22 22:54 Nasal Screen MRSA (PCR) Negative (Negative) 05/27/22 05:00 Beta-2-GPI IgG Ab Cancelled 05/27/22 05:52 Beta-2-GPI IgM Ab Cancelled 05/27/22 05:52 SARS-CoV-2, RNA, NAAT NEGATIVE (NEGATIVE) 05/27/22 00:33 Blood Type O Positive 05/26/22 23:19 Antibody Screen NEGATIVE 05/26/22 23:19 Impressions Abdomen/Pelvis CTA 05/27/22 10:00 CT angio abdomen pelvis w con CLINICAL HISTORY: f/u internal iliac artery thrombosis COMPARISON STUDY: 05/26/2022 CT DOSE: 388.30 mGy.cm TECHNIQUE: Standard CT Angiogram of the aorta was performed with IV contrast followed by image post processing with coronal, and sagittal MIP reformats... This CT exam was performed using one or more of the following dose reduction techniques: Automated exposure control, adjustment of the mA and/or kV according to patient size, or use of iterative reconstruction technique. CONTRAST: Optiray 320, 120 mL nonionic intravenous contrast. VASCULAR FINDINGS: Abdominal aorta: patent without aneurysm or dissection. Mild atherosclerotic calcifications present. Celiac trunk: patent without stenosis. Superior mesenteric artery: patent without stenosis. Right renal artery: patent without stenosis. Mild atherosclerotic calcification is present at its origin. Left renal artery: patent without stenosis. Mild atherosclerotic calcification is present at its origin. Inferior mesenteric artery: patent without stenosis. Right common iliac artery: patent without stenosis. Atherosclerotic calcification is present. Right internal iliac artery: patent without stenosis. However, there is again a thrombosed 2 cm saccular aneurysm of the proximal right internal iliac artery. There is no obstruction of contrast. Right external iliac artery: patent without stenosis. Left common iliac artery: patent without stenosis. Atherosclerotic calcification is present. Left internal iliac artery: There is thrombosis and occlusion of the left internal iliac artery. Left external iliac artery: patent without stenosis NONVASCULAR FINDINGS: Lung base: The lung bases are clear. Abdominal cavity: There is no evidence for abdominal mass, adenopathy or ascites. Liver: There is homogeneous attenuation of the liver parenchyma. There is no evidence for enhancing mass lesion. Spleen: There is homogeneous attenuation of the splenic parenchyma. There is no enhancing mass lesion. Pancreas: There is homogeneous attenuation of the pancreatic parenchyma. There is no evidence for mass lesion or peripancreatic fluid collection. Gall Bladder: There is again cholelithiasis. Adrenal glands: The adrenal glands are normal in size and attenuation. There is no evidence for enhancing mass lesion. Kidneys: There is homogeneous attenuation of the renal parenchyma bilaterally. There is no evidence for renal calculus or hydronephrosis. There is no evidence for enhancing mass. Bowel: The bowel loops are normally placed within the abdomen and pelvis without evidence for dilatation or obstruction. There is sigmoid diverticulosis without evidence for diverticulitis. There are no inflammatory changes present. There is no evidence for free air. Bladder: The bladder is within normal limits with no evidence for focal mass, calculus or diverticulum. Minimal contrast is present within the bladder related to previous CT with contrast. : There is no evidence for pelvic mass or adenopathy. There is no evidence for pelvic ascites. The prostate is enlarged. Osseous structures: There is no acute osseous pathology. Degenerative changes are seen within the spine. IMPRESSION: 1. 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 2. Thrombosis with complete occlusion of the left internal iliac artery. 3. Additional atherosclerotic disease is present. 4. There is again cholelithiasis. 5. There is again sigmoid diverticulosis without evidence for diverticulitis. 6. Additional nonacute findings are again delineated above. ACT 112: Negative or not required by law. Electronically signed by: Jose Manuel Beard M.D. 05/27/2022 2:09 PM Resident Activity Tracking Resident Involvement: Resident Care Provided Care Provided: Adult [facility] Medicine (1) CAD (coronary artery disease) Associated angina: without angina Coronary Disease-Associated Artery/Lesion type: unspecified vessel or lesion type [place] vs. transplanted heart: [place] heart Qualified Code(s): I25.10 - Atherosclerotic heart disease of [place] coronary artery without angina pectoris (2) HTN (hypertension) Hypertension type: essential hypertension Qualified Code(s): I10 - Essential (primary) hypertension
[2022-05-27] MEDS ORDERED: PIPERACILLIN/TAZOBACTAM 4.5 GM in DEXTROSE 5% 100 ML IV SCH (08:00)
[2022-05-27 08:37] LABS: Hematocrit (blood only) 33.2 % (40.1-51.0); Hemoglobin 11.1 g/dl (14.0-18.0)
--- NOTE | 2022-05-27 09:55 | Gastrointestinal Consultation ---
Date of Consultation May 27, 2022 Assessment & Plan (1) Diverticulitis: (2) GI bleed: Plan -Continue IV Zosyn -When ready for a diet, would advance to liquids then ultimately advance to low residue -Colonoscopy in 6-8 weeks; We discussed that a colonoscopy performed while patient has active diverticulitis increases the risk of bowel perforation -Continue to monitor H/H -CT angiogram and subsequent recommendations for thrombosed iliac arteries and iliac artery aneurysm per primary team Supervising Physician Co-Signing Physician Notes Agree with LIONEL Jaramillo as above Gen: A+Ox3, Cooperative, NAD Abd: Soft, NT, ND Continue current therapy and supportive care Outpatient colonoscopy in 6-8 weeks. History of Present Illness Reason for Consultation: Diverticulitis, lower GI bleeding Attending Physician: James Marie DO History of Present Illness Patient is a 66 yo male with PMH of stroke, vertebral artery occlusion, HLD, first degree AV block, HTN, depression, anxiety, & CAD with CABG in 1999 on Aspirin & Plavix who presented to [facility] ED on 05/27 due to concerns of GI bleeding and abdominal pain. He had been evaluated in the ED for LLQ pain on 05/25/22 and was diagnosed with diverticulitis. He was discharged on Augmentin. He notes that his pain was improving, but he developed rectal bleeding. He notes a combination of bright red blood and dark blood. He notes associated dizziness & lightheadedness. CT scan in the ED indicated right sided diverticulitis with thrombosed iliac arteries and a 2 cm internal iliac artery aneurysm. He denies nausea/vomiting. He had a colonoscopy in 2019 that showed diverticulosis & and a tubular adenoma. He notes improvement of his abdominal pain since admission. No pertinent family history. H/H 11.1/33.2. BUN 15/Cr 1.13. T Bili 1.4. D Bili 0.3. AST 18, ALT 21. A CT angiogram of the abdomen/pelvis is pending. Allergies Allergy/AdvReac Type Severity Reaction Status Date / Time valacyclovir Allergy Intermediate severe Verified 05/26/22 12:51 back pains codeine Allergy Mild GI SYMPTOMS Verified 05/26/22 12:51 oxycodone AdvReac Mild Nausea Verified 05/26/22 12:51 sulfamethoxazole AdvReac Mild Nausea Verified 05/26/22 12:51 [From Bactrim] trimethoprim [From Bactrim] AdvReac Mild Nausea Verified 05/26/22 12:51 Home Medications Medication Instructions Recorded Confirmed Type ascorbic acid (vitamin C) 1,000 mg 1,000 mg PO QAM 04/24/19 05/26/22 History tablet (Vitamin C) cyanocobalamin (vitamin B-12) 500 500 mcg PO QAM 04/24/19 05/26/22 History mcg tablet (Vitamin B-12) multivitamin 1 tab PO QAM 04/24/19 05/26/22 History fluticasone propionate 50 1 spray intranasal DAILY PRN 11/07/19 05/26/22 History mcg/actuation nasal Allergy Symptoms spray,suspension nitroglycerin 0.4 mg sublingual 0.4 mg sublingual UD PRN Angina 07/29/20 05/26/22 Rx tablet (Nitrostat) #30 tabs triamcinolone acetonide 0.1 % 1 applic topical DAILY PRN scotal 02/11/21 05/26/22 History topical cream itch lutein 20 mg tablet 20 mg PO QAM 06/11/21 05/26/22 History vitamin E (dl, acetate) 180 mg 45 mg PO QAM 06/11/21 05/26/22 History (400 unit) capsule prednisone 10 mg tablet 10 mg PO TID PRN gout flare ups #9 06/13/21 05/26/22 Rx tabs amlodipine 5 mg tablet 5 mg PO QAM #90 tabs 07/29/21 05/26/22 Rx allopurinol 100 mg tablet 100 mg PO QAM 08/26/21 05/26/22 History aspirin 81 mg tablet,delayed 81 mg PO BID #180 tabs 09/01/21 05/26/22 Rx release (Adult Aspirin Regimen) carvedilol 12.5 mg tablet 12.5 mg PO BID #180 tabs 12/22/21 05/26/22 Rx losartan 50 mg tablet 50 mg PO BID #180 tabs 02/23/22 05/26/22 Rx atorvastatin 80 mg tablet 80 mg PO HS #90 tabs 03/25/22 05/26/22 Rx Garlic 1000mg Tablet 1,000 mg PO HS 05/26/22 05/26/22 History Saccharomyces boulardii 250 mg 250 mg PO BID #20 caps 05/26/22 05/26/22 Rx capsule (Florastor) amiodarone 200 mg tablet 200 mg PO HS 05/26/22 05/26/22 History amoxicillin 875 mg-potassium 1 tab PO TID 10 days #30 tabs 05/26/22 05/26/22 Rx clavulanate 125 mg tablet clopidogrel 75 mg tablet 75 mg PO QAM 05/26/22 05/26/22 History omega 6-xvs-saw-fish oil 1,200 mg 1 cap PO HS 05/26/22 05/26/22 History (144 mg-216 mg) capsule (Fish Oil) Patient History Medical History Anxiety and depression CAD (coronary artery disease) Gout History of asthma A CHILD HTN (hypertension) Hyperlipidemia Myocardial Infarction 1999 Ocular migraine PVC (premature ventricular contraction) Vertebral artery occlusion Surgical History History of cardiac cath 1999 AND 2017 History of colonoscopy History of coronary artery bypass graft X 4 VESSELS IN 1999 X 3 VESSELS IN 2018 History of tonsillectomy Family History Mother Cardiac disorder Breast cancer Family history of diabetes mellitus Unknown Coronary heart disease Hypertension Father Cardiac disorder Myocardial infarction Denies family history of Ovarian cancer Prostate cancer Colorectal cancer Social History Smoking Status: Unknown if ever smoked Second Hand Exposure: No; Hx Alcohol Use: Yes Alcohol type: beer Alcohol Intake Frequency: 2-3 x/Week Hx Substance Use: No Preferred Language: Haitian Communication Ability: Effective Visual Impairment: Limited Hearing Ability: Normal [place] Utility Worker Required: No Beliefs That Will Affect Care: None marital status: Current Living Situation: Spouse current occupational status: employed 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 How many Children do You have: 1 Other Information That Helps Us Care for You: No Feels Safe at Home: Yes Safety Concerns: Feels Safe At This Time Childhood Exposure to Second-Hand Smoke: No caffeine: No Dental Care, Regularly: Yes Physical Activity Frequency: Daily Physical Activity Frequency Comment: 45 mins treadmill Seatbelt Use: always Sunscreen Use: Yes Assistive Devices: None Review of Systems Constitutional: no fever and no chills Respiratory: no cough and no dyspnea Cardiovascular: no chest pain Gastrointestinal: + abdominal pain and + blood in stools Integumentary: no problem reported Psychiatric: no problem reported Hematologic / Lymphatic: no unexplained weight loss Physical Exam Constitutional: well developed Neck: normal visual inspection Respiratory: normal respiratory effort Cardiovascular: Rate/Rhythm: regular rate Gastrointestinal (Abdomen): Inspection/Auscultation: abdomen normal to inspection Percussion/Palpation: + abdomen tender and abdomen soft Musculoskeletal: Head/Neck/Chest: normocephalic Psychiatric: Orientation: alert and oriented x 3 Results & Data ([facility]) Vital Signs (Past 12 Hours) Vital Signs Temp Pulse Pulse Resp BP BP Pulse Ox 05/27/22 08:03 36.6 C 54 L 12 114/66 97 05/27/22 05:00 54 L 17 96 05/27/22 05:00 96/60 L 05/27/22 04:11 36.8 C 60 19 98 05/27/22 04:11 122/70 05/27/22 04:24 36.8 C 57 L 14 122/70 98 05/27/22 03:30 60 20 115/71 98 05/27/22 03:00 69 18 100/64 96 05/27/22 02:51 63 12 93/62 L 94 05/27/22 02:33 56 L 16 85/58 L 94 05/27/22 02:05 62 16 104/59 L 94 05/27/22 01:08 59 L 19 134/76 96 05/27/22 00:34 49 L 16 05/27/22 00:34 88/53 L 05/27/22 00:31 46 L 16 05/27/22 00:31 87/52 L 05/27/22 00:30 45 L 20 05/27/22 00:28 83/52 L 05/27/22 00:28 43 L 14 05/27/22 00:27 43 L 14 05/27/22 00:26 83/49 L 05/27/22 00:22 45 L 83/49 L 05/26/22 22:59 123/75 05/26/22 22:11 36.5 C 77 18 100 O2 Del Method 05/27/22 08:03 Room Air 05/27/22 05:00 05/27/22 05:00 05/27/22 04:11 05/27/22 04:11 05/27/22 04:24 Room Air 05/27/22 03:30 05/27/22 03:00 05/27/22 02:51 Room Air 05/27/22 02:33 05/27/22 02:05 Room Air 05/27/22 01:08 05/27/22 00:34 05/27/22 00:34 05/27/22 00:31 05/27/22 00:31 05/27/22 00:30 05/27/22 00:28 05/27/22 00:28 05/27/22 00:27 05/27/22 00:26 05/27/22 00:22 05/26/22 22:59 05/26/22 22:11 Room Air PG Care Time/CCT Total # of Minutes Spent Total Time Spent with Patient: Total time spent is greater than 50% in coordination of care (as documented) at patient's floor/unit and/or counseling patient: Coding Level of Care Code 34259 Office/OBS Consult Lvl 4 Diagnoses Diverticulitis K57.92 GI bleed K92.2
[2022-05-27] MEDS ORDERED: OPTIRAY 320 125ml IV ONE (10:30)
[2022-05-27] MEDS ORDERED: PANTOprazole 40 MG in SYRINGE 0 ML IV SCH (11:00)
[2022-05-27 13:03] LABS: Hemoglobin 11.1 g/dl (14.0-18.0)
--- NOTE | 2022-05-27 14:11 | CT Scan Report ---
CT angio abdomen pelvis w con CLINICAL HISTORY: f/u internal iliac artery thrombosis COMPARISON STUDY: 05/26/2022 CT DOSE: 388.30 mGy.cm TECHNIQUE: Standard CT Angiogram of the aorta was performed with IV contrast followed by image post p rocessing with coronal, and sagittal MIP reformats... This CT exam was performed using one or more of the following dose reduction techniques: Automated ex posure control, adjustment of the mA and/or kV according to patient size, or use of iterative reconst ruction technique. CONTRAST: Optiray 320, 120 mL nonionic intravenous contrast. VASCULAR FINDINGS: Abdominal aorta: patent without aneurysm or dissection. Mild atherosclerotic calcifications present . Celiac trunk: patent without stenosis. Superior mesenteric artery: patent without stenosis. Right renal artery: patent without stenosis. Mild atherosclerotic calcification is present at its lisa gin. Left renal artery: patent without stenosis. Mild atherosclerotic calcification is present at its orig in. Inferior mesenteric artery: patent without stenosis. Right common iliac artery: patent without stenosis. Atherosclerotic calcification is present. Right internal iliac artery: patent without stenosis. 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 There is no obstruction of contrast. Right external iliac artery: patent without stenosis. Left common iliac artery: patent without stenosis. Atherosclerotic calcification is present. Left internal iliac artery: There is thrombosis and occlusion of the left internal iliac artery. Left external iliac artery: patent without stenosis NONVASCULAR FINDINGS: Lung base: The lung bases are clear. Abdominal cavity: There is no evidence for abdominal mass, adenopathy or ascites. Liver: There is homogeneous attenuation of the liver parenchyma. There is no evidence for enhancing m ass lesion. Spleen: There is homogeneous attenuation of the splenic parenchyma. There is no enhancing mass lesion . Pancreas: There is homogeneous attenuation of the pancreatic parenchyma. There is no evidence for mas s lesion or peripancreatic fluid collection. Gall Bladder: There is again cholelithiasis. Adrenal glands: The adrenal glands are normal in size and attenuation. There is no evidence for enhan cing mass lesion. Kidneys: There is homogeneous attenuation of the renal parenchyma bilaterally. There is no evidence f or renal calculus or hydronephrosis. There is no evidence for enhancing mass. Bowel: The bowel loops are normally placed within the abdomen and pelvis without evidence for dilatat ion or obstruction. There is sigmoid diverticulosis without evidence for diverticulitis. There are no inflammatory changes present. There is no evidence for free air. Bladder: The bladder is within normal limits with no evidence for focal mass, calculus or diverticulu m. Minimal contrast is present within the bladder related to previous CT with contrast. : There is no evidence for pelvic mass or adenopathy. There is no evidence for pelvic ascites. The prostate is enlarged. Osseous structures: There is no acute osseous pathology. Degenerative changes are seen within the spi ne. IMPRESSION: 1. 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 2. Thrombosis with complete occlusion of the left internal iliac artery. 3. Additional atherosclerotic disease is present. 4. There is again cholelithiasis. 5. There is again sigmoid diverticulosis without evidence for diverticulitis. 6. Additional nonacute findings are again delineated above. ACT 112: Negative or not required by law. Electronically signed by: Jose Manuel Beard M.D. 05/27/2022 2:09 PM
--- NOTE | 2022-05-27 16:43 | Electrocardiogram Report ---
Test Reason : Blood Pressure : / mmHG Vent. Rate : 062 BPM Atrial Rate : 062 BPM P-R Int : 206 ms QRS Dur : 094 ms QT Int : 502 ms P-R-T Axes : 047 -38 052 degrees QTc Int : 509 ms Poor data quality, interpretation may be adversely affected Normal sinus rhythm Left axis deviation Septal infarct (cited on or before 26-AUG-2021) Abnormal ECG When compared with ECG of 26-AUG-2021 14:23, QT has lengthened Confirmed by Scott Madrid ([id number]) on 05/27/2022 4:43:08 PM Referred By: REFERRED SELF Confirmed By:Scott Madrid
[2022-05-27 17:17] LABS: Hematocrit (blood only) 32.2 % (40.1-51.0); Hemoglobin 10.7 g/dl (14.0-18.0)
[2022-05-27] MEDS ORDERED: ATORVASTATIN 40 MG TAB PO SCH (21:00)
[2022-05-27] MEDS ORDERED: AMIODARONE 200 MG TAB PO SCH (21:00)
[2022-05-28 00:49] LABS: Hematocrit (blood only) 32.7 % (40.1-51.0); Hemoglobin 10.8 g/dl (14.0-18.0)
--- NOTE | 2022-05-28 03:14 | Billing Data ---
Date of Service May 28, 2022 Coding Level of Care Code 36993 Initial Inpt Care Lvl 3
[2022-05-28] MEDS: PIPERACILLIN/TAZOBACTAM 3.375 GM in DEXTROSE 5% 100 ML IV SCH (05:56)
[2022-05-28 05:59] LABS: Hematocrit (blood only) 30.6 % (40.1-51.0); Hemoglobin 10.1 g/dl (14.0-18.0); Mean Corpuscular Hemoglobin 30.9 pg (25.0-34.0); Mean Corpuscular Volume 93.6 fL (80.0-100.0); Mean Platelet Volume 9.3 fL (9.4-12.4); Platelet Count 107 K/uL (130-400); RDW Coefficient of Variation 12.1 % (11.5-14.5); RDW Standard Deviation 41.3 fL (36.4-46.3); Red Blood Count 3.27 M/uL (4.63-6.08); White Blood Count 5.37 K/ul (4.8-10.8)
[2022-05-28 06:22] LABS: BUN Creatinine Ratio 8.8 (10-20); Calcium 7.3 mg/dl (8.5-10.1); Creatinine Clr Calc Pharmacy 64.7 ml/min; Est GFR (African American) 77.5 ml/min; Est GFR (Non-African American) 66.9 ml/min; Potassium 3.4 mmol/L (3.5-5.1)
--- NOTE | 2022-05-28 08:02 | Hospitalist Progress Note ---
Date of Service May 28, 2022 Assessment & Plan (1) Acute lower gastrointestinal bleeding: Plan: 66yo male with PMHx significant for CAD (CABG in 1999, on Aspirin/Plavix), h/o CVA in 2020, frequent PVCs (loop recorder in place, on Amiodarone), 1st degree AV block, restrictive lung disease (due to Amio), HTN, HLD and gout, who presented to [facility] ED on 05/27 for concern of GI bleed (1) Acute lower gastrointestinal bleeding: Acute-onset bright red blood per rectum, with at least 4-5 episodes in last 6 hours. In context of several days of abdominal pain, presumably due to acute diverticulitis (see below). At this point, most likely source is from diverticulitis, although this is atypical as bleeding typically occurs with diverticulosis rather than diverticulitis. Additionally patient has completely thrombosed internal iliac arteries, raising suspicion for other abdominal arterial disease and possible mesenteric ischemia as source of bleeding, although less likely given wrong distribution. Requires further evaluation. - admit to PCU - CTA A/P 1. 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 2. Thrombosis with complete occlusion of the left internal iliac artery. 3. Additional atherosclerotic disease is present. 4. There is again cholelithiasis. 5. There is again sigmoid diverticulosis without evidence for diverticulitis. - Hgb 14 --> 10.7 following recurrent episodes of hematochezia - s/p NSS 1L bolus -dc'd IVF - s/p Pepcid 20mg IV in ED, placed on protonix drip --> dc'd - GI consulted - Continue IV Zosyn When ready for a diet, would advance to liquids then ultimately advance to low residue Colonoscopy in 6-8 weeks; We discussed that a colonoscopy performed while patient has active diverticulitis increases the risk of bowel perforation - resumed liquid diet - trend H/H - transfuse for Hgb <8 (given symptoms) (2) Hypotension: Resolved following NSS 1L bolus. - hold home BP meds (3) Thromboembolism of internal iliac artery: New finding per CT A/P done yesterday. Patient does not have known cancer, has had stable weight, is physically active, and denies family h/o clotting disorders. - hypercoagulability panel ordered - consulted Heme/Onc - appreciate recs (4) Diverticulitis: Several days of LLQ abdominal pain, with uncomplicated diverticulitis (no perforation or abscess) per CT A/P. Was started on Augmentin yesterday. - started on Zosyn in ED - continue for now - trend blood cx and adjust abx as necessary (5) CAD (coronary artery disease): Chronic. S/p CABG in 1999. Follows with [facility]. - Hold home Aspirin and Clopidogrel due to acute GI bleed. (6) H/O: stroke: In 2020. Follows with [facility]. - hold anti-platelet therapy as stated above (7) Vertebral artery occlusion: Chronic right vertebral artery occlusion. ?Hypercoagulable disorder. 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 F/w [facility]. 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 (10) HTN (hypertension): Hold home Amlodipine, Carvedilol and Losartan, as stated above (11) Dyslipidemia: Continue home Atorvastatin (12) Gout: Hold Allopurinol for now due to NPO/GI bleed. Plan FEN/GI: full liqiud diet DVT Prophylaxis: SCDs, no chemoppx due to GI bleed Code Status: full code Disposition: med/tele (2) Hypotension: (3) Thromboembolism of internal iliac artery: (4) Diverticulitis: (5) CAD (coronary artery disease): (6) H/O: stroke: (7) Vertebral artery occlusion: (8) Frequent PVCs: (9) First degree atrioventricular block: (10) HTN (hypertension): (11) Dyslipidemia: (12) Gout: Admission and Anticipated Discharge Date Admission Date: May 27, 2022 Results & Data Results & Data ([facility]) Vital Signs (Past 12 Hours) Vital Signs Temp Pulse Resp BP Pulse Ox 05/28/22 04:56 36.8 C 129/74 05/28/22 04:56 60 13 96 05/28/22 00:13 36.9 C 137/86 05/28/22 00:13 69 14 96 05/28/22 00:00 64 (1) CAD (coronary artery disease) Coronary Disease-Associated Artery/Lesion type: unspecified vessel or lesion type [place] vs. transplanted heart: [place] heart Associated angina: without a ngina Qualified Code(s): I25.10 - Atherosclerotic heart disease of [place] coronary artery without angina pectoris (2) HTN (hypertension) Hypertension type: essential hypertension Qualified Code(s): I10 - Essential (primary) hypertension
--- NOTE | 2022-05-28 09:46 | Gastroenterology Progress Note ---
Date of Service May 28, 2022 Assessment & Plan (1) Diverticulitis: (2) GI bleed: Plan -Continue IV Zosyn. When discharged, would send enough po antibiotics to complete a total of 10 day treatment course. -Can advance to low residue diet if no further interventions planned by other services. -Continue to monitor H/H and for new GI bleeding. -Colonoscopy in 6-8 weeks. Our office will contact patient directly to schedule. Admission and Anticipated Discharge Date Admission Date: May 27, 2022 Supervising Physician Co-Signing Physician Notes Agree with LIONEL Jaramillo as above Patient was discharged prior to my evaluation. Subjective Patient is a 66 yo male hospitalized with right sided diverticulitis. Patient reports improvement of abdominal pain. He is tolerating a liquid diet. He notes that the rectal bleeding has tapered and he is moving his bowels without issue. His H/H is 10.1/30.6. He denies further GI concerns at the present time. Review of Systems Gastrointestinal: no abdominal pain, no change in bowel habits and no diarrhea/loose stools Physical Exam Constitutional: well developed Respiratory: normal respiratory effort Cardiovascular: Rate/Rhythm: regular rate Gastrointestinal (Abdomen): normal bowel sounds, soft, nontender, no hepatosplenomegaly Psychiatric: Orientation: alert and oriented x 3 Results & Data Results & Data ([facility]) Vital Signs (Past 12 Hours) Vital Signs Temp Pulse Resp BP Pulse Ox 05/28/22 08:00 61 15 05/28/22 04:56 36.8 C 129/74 05/28/22 04:56 60 13 96 05/28/22 00:13 36.9 C 137/86 05/28/22 00:13 69 14 96 05/28/22 00:00 64 PG Care Time/CCT Total # of Minutes Spent Total Time Spent with Patient: Total time spent is greater than 50% in coordination of care (as documented) at patient's floor/unit and/or counseling patient: Coding Level of Care Code 32793 Subseq Hosp Care Lvl 3 Diagnoses Diverticulitis K57.92 GI bleed K92.2
[2022-05-28] MEDS ORDERED: POTASSIUM CHLORIDE CRTAB 20 MEQ TABCR PO ONE (11:01)
--- NOTE | 2022-05-28 12:27 | Discharge Summary ---
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 Patient was in the ED yesterday for LLQ abdominal pain - was diagnosed with diverticulitis and discharged from ED on Augmentin. Patient reports that his pain was mildly improved before bleeding began, although he does report development of generalized lower abdominal fullness before bleeding began. Reports associated dizziness/lightheadedness. Denies N/V or hematemesis. Denies fever/chills. Denies recent travel or change in diet. Does not eat out. Denies h/o GI bleed. Has colonoscopies every 3 years for polyps - have always been benign. Patient is usually very active - usually walks on treadmill ~1hr per day; however he stopped several days ago due to abdominal pain. He denies family history of clotting disorders or bleeding. Denies smoking or drug use. Only has a drink occasionally. In the ED the patient was afebrile and initially hemodynamically stable on room air. However he had several episodes of large BMs with bright red blood with resultant decrease in BP to 80s/50s. He received NSS 1L bolus and pressures improved to 120s/80s. Labs significant for TBili 1.4. Hgb is 14 although down from 15.6 earlier in the day. Otherwise CBC/CMP/lipase unremarkable. Of note, CT A/P done yesterday shows right colon diverticulitis without abscess or perforation. 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 Patient was given NSS 1L bolus, as stated above, Zofran x1, Pepcid IV, and Zosyn in ED. Blood cx collected before initiation of abx. Admission Exam Per Admitting Provider General: A&Ox3. NAD. Cooperative. HEENT: Atraumatic, normocephalic. Pulm: CTAB A&P. -wheezes, -rales, -rhonchi. Symmetrical chest rise. No increase work of breathing. No respiratory distress. Cardiac: RRR, -mrg. Radial pulses intact and symmetrical. Abdominal: soft, non-distended, mild tenderness to palpation of LLQ without guarding or rebound, NA BS x 4 Skin: warm, dry, no rash Principal Diagnosis Diverticulitis with Lower GI bleeding Discharge Exam Constitutional WD/WN, vitals as above Eyes PERRL, conjunctivae normal, anicteric sclerae ENMT external ear and nose normal, oropharynx normal Neck trachea midline, no thyromegaly Respiratory normal respiratory effort, lungs clear to auscultation Cardiovascular RRR, no murmur, no edema Chest (Breasts) Chest: normal inspection of chest Gastrointestinal (Abdomen) normal bowel sounds, soft, nontender, no hepatosplenomegaly Skin no rashes, warm and dry Discharge Data Allergies Allergy/AdvReac Type Severity Reaction Status Date / Time valacyclovir Allergy Intermediate severe Verified 05/26/22 12:51 back pains codeine Allergy Mild GI SYMPTOMS Verified 05/26/22 12:51 oxycodone AdvReac Mild Nausea Verified 05/26/22 12:51 sulfamethoxazole AdvReac Mild Nausea Verified 05/26/22 12:51 [From Bactrim] trimethoprim [From Bactrim] AdvReac Mild Nausea Verified 05/26/22 12:51 Consultations 05/27/22 00:24 ED Decision to Admit Stat 05/27/22 04:29 Consult Gastroenterology Routine Consult Hematology Routine Ordered Studies 05/27/22 10:00 CTA abdomen pelvis w con [CT angio abdomen pelvis w con] Routine Hospital Course (1) Acute lower gastrointestinal bleedinyo male with PMHx significant for CAD (CABG in 1999, on Aspirin/Plavix), h/o CVA in 2020, 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 In context of several days of abdominal pain, presumably due to acute diverticulitis (see below). At this point, most likely source is from diverticulitis, although this is atypical as bleeding typically occurs with diverticulosis rather than diverticulitis. Unlikely to be due to thrombosed internal iliac arteries given wrong distribution. 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 Thrombosis with complete occlusion of the left internal iliac artery. Additional atherosclerotic disease is present. There is again cholelithiasis. There is again sigmoid diverticulosis without evidence for diverticulitis.Hgb 14 --> 10.7 following recurrent episodes of hematochezia, stabilized.Patient given IVF and protonix, dc'd. GI consulted - Continue IV Zosyn. When ready for a diet, would advance to liquids then ultimately advance to low residue. Colonoscopy in 6-8 weeks; We discussed that a colonoscopy performed while patient has active diverticulitis increases the risk of bowel perforation (2) Hypotension: Resolved following NSS 1L bolus. Resumed home meds (3) Thromboembolism of internal iliac artery: New finding per CT A/P done yesterday. Patient does not have known cancer, has had stable weight, is physically active, and denies family h/o clotting disorders. Hypercoagulability panel ordered, pending.Consulted Heme/Onc - Likely atherosclerosis no indication thrombophilia or malignancy, may f/u with heme/onc to review coagulability panel results (4) Diverticulitis: Several days of LLQ abdominal pain, with uncomplicated diverticulitis (no perforation or abscess) per CT A/P. Was started on Augmentin in outpatient didn't start any pills yet. started on Zosyn in ED received 2 days of abx. In outpatient may resume Augmentin BID 9 days (5) CAD (coronary artery disease): Chronic. S/p CABG in 1999. Follows with [facility] Cardiology. May resume home ASA plavix in outpatient (6) H/O: stroke: In 2020. Follows with [facility] Neurology. (7) Vertebral artery occlusion: Chronic right vertebral artery occlusion. Evaluate for Hypercoagulable disorder. (8) Frequent PVCs: Chronic, with loop recorder in place. F/w [facility]. Continue Amiodarone (9) First degree atrioventricular block: Chronic. Due to Amiodarone. (10) HTN (hypertension): May resume home Amlodipine, Carvedilol and Losartan (11) Dyslipidemia: Continue home Atorvastatin (12) Gout: May resume allopurinol (2) Hypotension: (3) Thromboembolism of internal iliac artery: (4) Diverticulitis: (5) CAD (coronary artery disease): (6) H/O: stroke: (7) Vertebral artery occlusion: (8) Frequent PVCs: (9) First degree atrioventricular block: (10) HTN (hypertension): (11) Dyslipidemia: (12) Gout: Total Time Total Time Spent Total Time Spent (In Minutes): <30 Discharge Plan Discharge Items Patient Disposition: Home - Self-Care Reason For Visit: LOWER GI BLEED, DIVERTICULITIS Discharge Diagnosis: Diverticulitis with Lower GI bleed Activity: Resume your previous activity Non-emergency contact: Primary Care Provider Call non-emergency contact if: you have any medication questions, your symptoms worsen, your pain is not controlled and you have a fever Follow-up/Referrals: Linden Henao DO [Physician] - (colonoscopy in 6-8 weeks) Faizan Negrete DO [Primary Care Provider] - 06/08/22 11:30 am (Please follow up with Dr. Negrete on Wednesday06/08/22 at 11:30 am. Please arrive to the office at 11:15 am for your appointment. If you are unable to keep this appointment, please call the office to reschedule at [phone].) Diet: Regular and Low Fiber Addtl Attending Provider Instructions: You were admitted to the hospital for Gastroentestinal Bleeding secondary to your diverticulitis. You were treated with antibiotics and a liquid diet, and your symptoms have improved. At home, please take Augmentin three times a day for the next 9 days to ensure complete resolution of your condition. You may take probiotics at this time to ensure the health of your gut pauly while on antibiotics. You were seen by Gasteroenterology here, who recommend a colonoscopy in 6-8 weeks to follow up on your Diverticulitis. You may take iron supplements to replete your recent blood loss. You may eat a regular diet low in fiber to prevent agitation of your diverticulitis. You may resume your blood thinners once you no longer note blood in your stool. Please follow up with your PCP. A discharge summary will be sent to your primary care physician to ensure continuity of care. Please bring this discharge summary with you to your next office appointment so that your provider can review it at that time. Follow-up appointments: Make a follow-up appointment with your PCP within the next week. It is very important that you follow up with them shortly after discharge from the hospital. We have requested a follow-up appointment with your Material Scheduler in 6-8 weeks. Please call their office if you do not hear from them. Keep all your follow-up appointments as already scheduled. If you cannot make an appointment, notify your provider. Medications: Your medication list has been reviewed and reconciled upon discharge to ensure accuracy and continuity of care. An updated list of all your medications is included with your hospital discharge paperwork. Please review this list closely, and make note of any changes. * Please take your Augmentin 875mg 1 tablet 3 times a day for the next 9 days. You may start the first dose tonight. Take your medications as instructed; do not skip a dose of your medicines. Make sure all of your doctors know every medicine you are taking (including [id number] medicines, vitamins, and supplements). Call your primary care provider before taking any new medicines (including [id number]-[id number] medicines, vitamins, and supplements), because some of these may interact with your current medications, or may make your symptoms worse. Tell your primary care provider if you cannot afford your medications. CONTACT YOUR PRIMARY CARE PROVIDER if you experience any of the following: Fever, chills, difficulty breathing Bloody stool, abdominal pain Difficulty following your treatment plan, or difficulty taking medications CALL 911 OR GO TO THE EMERGENCY DEPARTMENT if you experience any of the following: Sudden, severe abdominal pain or nausea/vomiting Severe chest pain, or chest pain that radiates (moves) to your jaw or arm Sudden, severe shortness of breath or difficulty breathing Thank you for allowing us to participate in your care. Pending Studies at Discharge: No Stand-Alone Forms: My GIVTED, Smoking Cessation Medications and DC Order Prescriptions: Continued prednisone 10 mg tablet 10 mg PO TID PRN (Reason: gout flare ups) Qty: 9 0RF amlodipine 5 mg tablet 5 mg PO QAM Qty: 90 3RF aspirin [Adult Aspirin Regimen] 81 mg tablet,delayed release (DR/EC) 81 mg PO BID Qty: 180 1RF carvedilol 12.5 mg tablet 12.5 mg PO BID Qty: 180 3RF Rx Instructions: must administer with a meal/food losartan 50 mg tablet 50 mg PO BID Qty: 180 3RF atorvastatin 80 mg tablet 80 mg PO HS Qty: 90 3RF nitroglycerin [Nitrostat] 0.4 mg tablet, sublingual 0.4 mg sublingual UD PRN (Reason: Angina) Qty: 30 1RF triamcinolone acetonide 0.1 % cream 1 applic topical DAILY PRN (Reason: scotal itch) vitamin E (dl, acetate) 400 unit capsule 45 mg PO QAM lutein 20 mg tablet 20 mg PO QAM Rx Instructions: give with meal/snack multivitamin Tablet 1 tab PO QAM ascorbic acid (vitamin C) [Vitamin C] 1,000 mg Tablet 1,000 mg PO QAM cyanocobalamin (vitamin B-12) [Vitamin B-12] 500 mcg Tablet 500 mcg PO QAM fluticasone propionate 50 mcg/actuation spray,suspension 1 spray INTRANASAL DAILY PRN (Reason: Allergy Symptoms) allopurinol 100 mg tablet 100 mg PO QAM omega 5-npy-qfe-fish oil [Fish Oil] 1,200 (144-216) mg Capsule 1 cap PO HS Garlic 1000mg Tablet 1,000 mg PO HS amiodarone 200 mg tablet 200 mg PO HS clopidogrel 75 mg tablet 75 mg PO QAM Saccharomyces boulardii [Florastor] 250 mg capsule 250 mg PO BID Qty: 20 0RF amoxicillin-pot clavulanate 875-125 mg tablet 1 tab PO TID 10 Days Qty: 30 0RF Discharge Orders: Discharge Order (Routine); Ordered 05/28/22 Ordered By: Daja Milian/Other Patient Handouts: Diverticulosis and Diverticulitis, Diverticulitis Dc Admission Data Admit Date/Time: 05/27/22 01:15 Attending Provider: James Marie Admit Provider: Bhavin Coughlin Primary Care Provider: Faizan Negrete Other Providers: Killian Walton ; Linden Henao ; Ajala,Jamilah Other Interventions: Discharge Summary Assessment (RN) Last Done: 05/28/22 12:09 Supervising Physician Co-Signing Physician Notes I personally examined the patient and verified all deluca points of history and exam, discussed case, and agree with decision making with Dr Pretty. Feels pretty good. Watery stool but no blood. Feels up to going home. Overall doing better. Vitals noted, in general he is awake and alert pleasant no distress. HEENT normocephalic atraumatic mucous membranes moist. Breathing unlabored no accessory muscle use good effort. Skin shows no rashes no pallor or icterus. Neuro without focal deficits. Lower GI bleedingoddly it does seem most consistent with diverticulitis and active bleedingfinish course of antibiotics with Augmentinto complete 10 total days of antibiotics. Did have a degree of acute blood loss anemia, but fortunately maintained hemodynamic stability and did not require transfusion. Vascular studies fortunately did not show mesenteric ischemiawhich, of course, was a valid concern initially. Iliac aneurysm likely chronicno leg symptoms. Outpatient follow-up. Stable for home. Outpatient GI and PCP follow-up Resident Activity Tracking Resident Involvement: Resident Care Provided Care Provided: Adult Hospital Medicine
--- NOTE | 2022-05-28 13:08 | Consultation Report ---
REASON FOR CONSULTATION: Thrombosis of internal iliac arteries. HISTORY OF PRESENT ILLNESS: Patient is a 66-year-old gentleman with extensive cardiac history including coronary artery disease, status post CABG in 1999, history of CVA in 2020, first-degree AV block, restrictive lung disease due to amiodarone, hypertension, hyperlipidemia, who was admitted to [facility] on 05/27/2022, after he had presented with hematochezia and left lower quadrant abdominal pain. 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 At the time of evaluating the patient, he states that he has an extensive cardiac history with atherosclerotic disease. Also indicates that he has a significant family history of atherosclerotic disease / cardiac issues. HOME MEDICATIONS: 1. Vitamin C 1000 mg p.o. daily. 2. Vitamin B12 500 mcg p.o. q.a.m. 3. Multivitamin 1 tablet p.o. q.a.m. 4. Fluticasone. 5. Nitroglycerin sublingual as needed. 6. Vitamin E supplement. 7. Prednisone as needed for gout flare. 8. Amlodipine 5 mg p.o. every day. 9. Allopurinol 100 mg p.o. every day. 10. Aspirin 81 mg p.o. b.i.d. 11. Carvedilol 12.5 mg p.o. b.i.d. 12. Losartan 50 mg p.o. b.i.d. 13. Atorvastatin 80 mg p.o. at bedtime. 14. Amiodarone 200 mg p.o. at bedtime. 15. Clopidogrel 5 mg p.o. q.a.m. PAST MEDICAL HISTORY: 1. Coronary artery disease. 2. Gout. 3. Hyperlipidemia. 4. Hypertension. 5. Myocardial infarction. 6. Premature ventricular contractions (PVCs). SURGICAL HISTORY: 1. Coronary artery bypass graft in 1999 and 2018. 2. Tonsillectomy. FAMILY HISTORY: Significant for breast cancer in his mother and extensive cardiac history in multiple family members. SOCIAL HISTORY: Denies smoking. Drinks alcohol occasionally. Denies illicit drug use. REVIEW OF SYSTEMS: Unremarkable. PHYSICAL EXAMINATION: Unremarkable. LABORATORY DATA: CBC on 05/28/2022, significant for white count of 5.37, hemoglobin 10.1, hematocrit 30.6, and platelet count 107,000 with MCV of 93.6. Chemistry significant for sodium of 138, potassium 3.4, chloride 108, bicarbonate 28, anion gap 2, BUN 10, and creatinine 1.13. IMAGING STUDIES: CTA abdomen and pelvis. IMPRESSION: 1. 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 2. Thrombosis with complete occlusion of the left internal iliac artery. 3. Additional atherosclerotic disease is present. 4. Cholelithiasis. 5. Sigmoid diverticulosis without evidence of diverticulitis. ASSESSMENT AND PLAN: 1. 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 2. Left internal iliac artery thrombosis. 3. Extensive atherosclerotic disease. 4. Anemia. 5. Thrombocytopenia. Pleasant 66-year-old gentleman who was admitted with abdominal pain and hematochezia. Imaging studies revealed thrombosis with complete occlusion of the left internal iliac artery as well as partially thrombosed saccular aneurysm of the right internal iliac artery. Thrombophilia testing was ordered by primary team, which is pending. Based on his extensive personal and family history of atherosclerotic disease, thrombosis of right internal iliac artery and left internal iliac artery is most likely due to atherosclerosis/cardiac etiology. Very rarely this has been associated with malignancies and thrombophilias. He has multiple reasons to indicate that this is purely vascular and due to atherosclerosis. Would recommend optimization of hypertension, hyperlipidemia and cardiac issues. Also consider 2D echo to r/o cardiac thrombus. Will follow up on thrombophilia testing. If the results of thrombophilia workup are not available prior to discharge from hospital, he can be referred to Hematology to review those results. Would recommend workup for anemia including iron studies and vitamin B12 level with repletion as needed. Thank you for this consult. Oncology/Hematology will sign off at this time. Feel free to call if you have any further questions. Job ID: [id number] [facility]
--- NOTE | 2022-05-28 17:55 | Billing Data ---
Date of Service May 28, 2022 Coding Level of Care Code D/C DAY MANAGEMENT <30 MINS
[2022-05-29 01:06] LABS: Anti Cardiolipin Ab IgG <2.0 GPL-U/mL; Anti Cardiolipin Ab IgM <2.0 MPL-U/mL
== END 2022-05-28 12:30 | disposition home or self-care (01) | DRG 392 ==
LOC: ED 22:11 → 1E 05-27 01:15 → SUATTDRO 05-27 01:15 → 1E 05-27 03:56

== ENCOUNTER 2023-03-02 22:47 | Observation (INO) ==
[2023-03-02 23:43] LABS: Basophils # (auto) 0.06 K/uL (0-0.2); Basophils % (auto) 0.9 %; Eosinophils # (auto) 0.21 K/uL (0-0.50); Eosinophils % (auto) 3.3 %; Hematocrit (blood only) 44.2 % (42.0-52.0); Hemoglobin 15.1 g/dl (14.0-18.0); Immature Granulocytes # (auto) 0.02 K/uL (0.01-0.20); Immature Granulocytes % (auto) 0.3 %; Lymphocytes # (auto) 1.31 K/uL (1.2-3.4); Lymphocytes % (auto) 20.7 %; Mean Corpuscular Hemoglobin 30.9 pg (25.0-34.0); Mean Corpuscular Hgb Conc 34.2 g/dL (32.0-36.0); Mean Corpuscular Volume 90.6 fL (80.0-100.0); Mean Platelet Volume 9.2 fL (9.4-12.4); Monocytes # (auto) 0.96 K/uL (0.11-0.59); Monocytes % (auto) 15.1 %; Neutrophils # (auto) 3.78 K/uL (1.40-6.50); Neutrophils % (auto) 59.7 %; Platelet Count 172 K/uL (130-400); RDW Standard Deviation 39.8 fL (36.4-46.3); Red Blood Count 4.88 M/uL (4.70-6.10); White Blood Count 6.34 K/ul (4.8-10.8)
[2023-03-02 23:56] LABS: Albumin Globulin Ratio 1.5 (0.9-2); Albumin Level 4.3 gm/dl (3.4-5.0); BUN Creatinine Ratio 16.3 (10-20); Bilirubin,Total 0.9 mg/dl (0.2-1.0); Calcium 8.8 mg/dl (8.6-10.3); Est GFR (Non-African American) 48.3 ml/min; Globulin 2.8 gm/dl (2.5-4.0); Potassium 4.1 mmol/L (3.5-5.1); Total Protein 7.1 gm/dl (6.0-8.3)
[2023-03-03 00:03] LABS: Troponin I High Sensitivity 6.8 pg/ml (0-20)
[2023-03-03 00:19] LABS: INR 1.2 (0.9-1.1); Partial Thromboplastin Ratio 1.2; Partial Thromboplastin Time 34.2 Seconds (21.0-31.0); Prothrombin Time 12.5 Seconds (9.0-12.0)
[2023-03-03] MEDS ORDERED: SODIUM CHLORIDE 0.9% 500 ML IV ONE (00:42)
[2023-03-03] MEDS ORDERED: fentaNYL citrate PF 100 MCG/2 ML VIAL IV STA (00:42)
[2023-03-03] MEDS ORDERED: ONDANSETRON INJ 2 MG/ML 2 ML VIAL IV STA (00:42)
--- NOTE | 2023-03-03 01:27 | History & Physical Report ---
Date of Service March 03, 2023 Assessment & Plan (1) Chest pain: Plan: 67 year old male w/ complex cardiac history, restrictive lung disease, gout, anxiety/depression admitted for chest and abdominal pain. Chest pain: -extensive past cardiac history including bypass in 2002 and 2018, A fib, PVCs, vertebral artery occlusion. -EKG w/ NSR, no acute ST changes or changes compared to prior EKG. -Troponin 6.8. -Echo from 10/12/22 EF 55-60%, no regional wall motion abnormalities. -Relief with fentanyl in ED. -Less likely anginal, however will consult cardiology for possible interrogation for arrhythmogenic occurrences given unable to interrogate at prior appointment. -EKG as needed for chest pain. -Tylenol for mild to mod pain PRN, oxycodone for mod to severe pain. Midepigastric/abdominal pain/symptomatic cholelithiasis: -US of liver 02/17 showed cholelithiasis and biliary sludge, hepatic steatosis w/o cholecystitis. -AST/ALT 56/60, T bili 0.9, alk phos 100. -Original plan for elective cholecystectomy few weeks from now. -Ordered HIDA scan to look for active obstruction. -Consulted surgery for evaluation. -NPO for potential cholecystectomy. Ordered D5/half NSS at 80ml/hr. -Holding home rivaroxaban and aspirin for potential surgery. -Continue to monitor. HTN/CAD/PAD/Hx of stroke/Frequent PVC: -Continue home amiodarone, amlodipine, Zetia, losartan, rosuvastatin. Gout: -holding home allopurinol for potential surgery. Restrictive lung disease: -No active pulmonary symptoms or physical exam findings. -Noted. Anxiet/Depression: -Not on any medications. Noted. F/E/N/GI: NPO for potential surgery. DVT Prophylaxis: SCD, holding chemoprophylaxis in setting of potential surgery. Code status: Conditional - CPR and shock, no intubation or artificial ventilation. If any updates or concerns please contact patient's Jessica [phone]. Dispo: Med/tele. (2) Midepigastric pain: (3) Symptomatic cholelithiasis: (4) History of coronary artery bypass graft: (5) PAD (peripheral artery disease): (6) Frequent PVCs: (7) Depression: (8) Anxiety: (9) Gout: (10) Restrictive lung disease: (11) Status post placement of implantable loop recorder: (12) H/O: stroke: (13) HTN (hypertension): (14) CAD (coronary artery disease): (15) Vertebral artery occlusion: History of Present Illness Chief Complaint: Chest and abdominal pain Primary Care Provider: Faizan NegreteDO Anne is a 67 year old male w/ PmHx CAD s/p CABG 2002 and re-do in 2018, A fib, PVCs, CVA s/p medtronic LINQ ILR, Dyslipidemia, hypertension, PAD, vertebral artery occlusion, restrictive lung disease, anxiety/depression, gout coming in to the emergency department for worsening abdominal and chest pain. Patient states that for months now he's had right upper abdominal and epigastric pain present everyday, most of the time. The pain does not worsen with food or exertion. He has had nausea with this and it has worsened over the past few days although no vomiting. More recent pain involving the chest is what brought him to seek out emergency medical evaluation today. He saw Dr. Pearson last week for the abdominal pain and it was determined that they should proceed with a cholecystectomy. He states that he has a history of PVCs that have increased in frequency in recent months for which he follows with Dr. Novak. The PVCs may cause him to get dizzy and have palpitations at times. He was increased from 200mg amiodarone to 300mg amiodarone and has a loop recorder device implanted. He had gone to cardiology clinic on the for which he was medically optimized from a cardiac standpoint for potential gallbladder surgery. At that time they were not able to interrogate the loop recorder and was instructed to go home and activate the loop recorder. Patient denies fevers, chills, diarrhea, constipation, urinary complaints. In the ED CBC unremarkable, PT 12.5, INR 1.2, Creat 1.47, eGFR 48.3, T bili 0.9, AST 56, ALT 60, troponin 6.8. Chest XR without any acute cardiopulmonary findings. Allergies Allergy/AdvReac Type Severity Reaction Status Date / Time codeine AdvReac Intermediate GI SYMPTOMS Verified 03/02/23 23:45 oxycodone AdvReac Intermediate Nausea Verified 03/02/23 23:45 sulfamethoxazole AdvReac Intermediate Nausea Verified 03/02/23 23:45 [From Bactrim] trimethoprim [From Bactrim] AdvReac Intermediate Nausea Verified 03/02/23 23:45 valacyclovir AdvReac Intermediate severe Verified 03/02/23 23:45 back pains Home Medications Medication Instructions Recorded Confirmed Type ascorbic acid (vitamin C) 1,000 mg 1,000 mg PO QAM 04/24/19 03/02/23 History tablet (Vitamin C) cyanocobalamin (vitamin B-12) 500 500 mcg PO QAM 04/24/19 03/02/23 History mcg tablet (Vitamin B-12) multivitamin 1 tab PO QAM 04/24/19 03/02/23 History nitroglycerin 0.4 mg sublingual 0.4 mg sublingual UD PRN Angina 07/29/20 03/02/23 Rx tablet (Nitrostat) #30 tabs triamcinolone acetonide 0.1 % 1 applic topical DAILY PRN scotal 02/11/21 03/02/23 History topical cream itch lutein 20 mg tablet 20 mg PO QAM 06/11/21 03/02/23 History vitamin E (dl, acetate) 180 mg 180 mg PO QAM 06/11/21 03/02/23 History (400 unit) capsule prednisone 10 mg tablet 10 mg PO TID PRN gout flare ups #9 06/13/21 03/02/23 Rx tabs omega [id number]-fish oil 1,200 mg 1 cap PO QPM 05/26/22 03/02/23 History (144 mg-216 mg) capsule (Fish Oil) garlic 300 mg capsule 300 mg PO PM 07/06/22 03/02/23 History rivaroxaban 2.5 mg tablet (Xarelto) 2.5 mg PO BID #180 tabs 08/27/22 03/02/23 Rx rosuvastatin 40 mg tablet (Crestor) 40 mg PO HS #90 tabs 08/27/22 03/02/23 Rx carvedilol 12.5 mg tablet 12.5 mg PO BID #180 tabs 12/28/22 03/02/23 Rx losartan 50 mg tablet 50 mg PO BID #180 tabs 02/15/23 03/02/23 Rx Saccharomyces boulardii 250 mg 250 mg PO DAILY 03/02/23 03/02/23 History capsule (Daily Probiotic (S. boulardii)) allopurinol 100 mg tablet 100 mg PO QAM 03/02/23 03/02/23 History amiodarone 200 mg tablet 300 mg PO QPM 03/02/23 03/02/23 History amlodipine 10 mg tablet 10 mg PO QAM 03/02/23 03/02/23 History aspirin 81 mg tablet,delayed 81 mg PO BID 03/02/23 03/02/23 History release ezetimibe 10 mg tablet (Zetia) 10 mg PO HS 03/02/23 03/02/23 History Past Med/Surg History Medical History Abdominal pain Acute lower gastrointestinal bleeding resolved per pt Aneurysm of right internal iliac artery Anxiety and depression CAD (coronary artery disease) Chronic dysfunction of both eustachian tubes Diverticulitis Gout H/O: stroke Nov 2020 > no residual effects, follows with [facility] History of asthma A CHILD HTN (hypertension) Hyperlipidemia Implantable loop recorder present placed Sep 2021 at [facility] Ischemic cardiomyopathy Myocardial Infarction 1999 Ocular migraine PAD (peripheral artery disease) PVC (premature ventricular contraction) follows with Dr. 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 Vertebral artery occlusion Surgical History History of cardiac cath 1999 AND 2017 History of colonoscopy with polypectomy History of coronary artery bypass graft X 4 VESSELS IN 1999 X 3 VESSELS IN 2018 History of tonsillectomy Family History Mother Cardiac disorder Breast cancer Family history of diabetes mellitus Hypertension Unknown Coronary heart disease Hypertension Father Cardiac disorder Myocardial infarction Heart disease Hypertension Denies family history of Ovarian cancer Prostate cancer Colorectal cancer Social History Smoking Status: Never smoker Second Hand Exposure: No; Hx Alcohol Use: Yes Alcohol type: beer Alcohol Intake Frequency: 2-3 x/Week Hx Substance Use: No Preferred Language: Maltese Communication Ability: Effective Visual Impairment: Limited Hearing Ability: Normal Purchase Price Analyst Required: No Beliefs That Will Affect Care: None marital status: Current Living Situation: Spouse current occupational status: retired 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 Physical Exam Constitutional: WD/WN, vitals as above Eyes: PERRL, conjunctivae normal, anicteric sclerae ENMT: external ear and nose normal, oropharynx normal Respiratory: normal respiratory effort, lungs clear to auscultation Cardiovascular: Rate/Rhythm: + irregularly irregular Heart Sounds: normal S1 and normal S2 No peripheral edema. Gastrointestinal (Abdomen): normal bowel sounds, soft, nontender, no hepatosplenomegaly Skin: no rashes, warm and dry Psychiatric: A+Ox3, euthymic affect Results & Data Results & Data Vital Signs (Past 12 Hours) Vital Signs Temp Pulse Pulse Resp BP BP Pulse Ox 03/03/23 00:30 58 L 16 119/76 93 03/03/23 00:00 56 L 16 111/69 95 03/02/23 23:31 62 20 132/71 95 03/02/23 23:31 36.9 C 61 18 132/71 95 03/02/23 23:04 66 03/02/23 22:48 36.8 C 71 18 149/75 H 98 O2 Del Method 03/03/23 00:30 Room Air 03/03/23 00:00 Room Air 03/02/23 23:31 Room Air 03/02/23 23:31 Room Air 03/02/23 23:04 03/02/23 22:48 Room Air Supervising Physician Co-Signing Physician Notes Attending addendum: I have physically seen this patient, have supervised the medical residents activities, and agree with the H&P unless as otherwise noted. Assessment and Plan: Chest pain/CAD/hypertension/status post CABG/atrial fibrillation- The patient will be admitted to telemetry for serial cardiac enzymes, serial EKG's, cardiac rhythm monitoring and a 2-D echocardiogram with Dopplers. Troponin normal at 6.8 EF on 10/12/2022 55-60% Continue amiodarone, amlodipine Consult to cardiology Epigastric/abdominal pain/cholelithiasis- Ultrasound of liver on 02/17 with cholelithiasis and biliary sludge, hepatic steatosis without cholecystitis Arrangements have been being made for possible elective cholecystectomy in the outpatient setting Order HIDA scan Consult general surgery NPO except essential medications D5 half-normal at 80 mils per hour Hold Xarelto and aspirin Hyperlipidemia- Continue rosuvastatin and Zetia Gout- Holding allopurinol for NPO status Remaining orders and notations as noted Resident Activity Tracking Resident Involvement: Resident Care Provided Care Provided: Adult Hospital Medicine (13) HTN (hypertension) Hypertension type: essential hypertension Qualified Code(s): I10 - Essential (primary) hypertension (14) CAD (coronary artery disease) Associated angina: without angina Coronary Disease-Associated Artery/Lesion type: unspecified vessel or lesion type [place] vs. transplanted heart: [place] heart Qualified Code(s): I25.10 - Atherosclerotic heart disease of [place] coronary artery without angina pectoris
[2023-03-03] MEDS ORDERED: NITROGLYCERIN SL 0.4 MG/TAB TAB SL PRN (02:44)
[2023-03-03] MEDS ORDERED: ACETAMINOPHEN 325 MG TAB PO PRN (02:44)
[2023-03-03] MEDS ORDERED: oxyCODONE HCL IR 5 MG TAB (IMMEDIATE RELEASE) PO PRN (02:44)
[2023-03-03] MEDS: D5W AND 1/2NSS 1,000 ML IV SCH ×2 (03:01→16:17)
[2023-03-03] MEDS ORDERED: MoRPHine SULFATE 2 MG/ML CARP IV STA (03:43)
--- NOTE | 2023-03-03 04:51 | Emergency Department Note ---
Impression & Plan Substernal chest pain, Dyspnea Admit to the [facility] ED Provider Note NAME: NAKIA CURRY AGE: 67 SEX: M ARRIVES VIA: Walk-In INFORMANT: Patient ED PROVIDER(S): Jolene Schwab DO CHIEF COMPLAINT: Chest pain and nausea PLAN: Disposition: Admit to the [facility] Condition: Fair MEDICAL DECISION MAKING: This is a 67-year-old male patient with a significant history of coronary artery disease with previous four-vessel CABG (1999 with repeat in 2018.) Patient had onset of pain around 9 PM this evening. He had associated palpitations which were PVCs. They seem to be causing dizziness. Patient has a known history of PVCs for which she takes amiodarone. His dosage of amiodarone was increased on 01/09. He describes tonight's episode of chest discomfort his worst episode ever. Laboratory studies today showed no elevated troponin. There was no leukocytosis or significant anemia. Patient does have elevated AST/ALT. The patient is scheduled to have a cholecystectomy next 2 weeks. His transaminases have gradually increased over the past couple of weeks. Patient's pain does seem to be substernal and radiates around both lower sides of his rib cage. There is some associated nausea, dyspnea and dizziness. EKG is unremarkable. Chest x-ray is negative. O2 saturations are stable. I have discussed the case with the [facility] and they will evaluate for further management. The patient's discomfort could be coming from his gallbladder as the cardiac work-up seems to be negative. Triage Nursing notes reviewed and agree with them. Additional history obtained from patient's significant other is at the bedside Prior medical records reviewed Vital Signs: reviewed and unremarkable Differential diagnosis: Acute cholecystitis, STEMI, unstable angina, GERD aortic dissection ER treatment provided: Cardiac monitoring, twelve-lead EKG, IV Zofran, IV fentanyl, IV normal saline Diagnostics interpreted by me: ECG: Normal sinus rhythm at a rate of 69. No ST segment elevation or signs of ischemia. There is no ectopy. Cardiac Monitoring: Normal sinus rhythm at a rate of 64 Laboratory studies: See below Imaging studies:As per my independent interpretation Chest x-ray: Cardiomegaly with no obvious pulmonary infiltrate or opacity HPI: 67/M arrives for evaluation of substernal chest pain. Patient explains that around 9 PM this evening he developed some substernal chest discomfort, nausea, shortness of breath and dizziness. He then began to have increased palpitations. He has a known history of PVCs. With the increased PVCs, he was becoming increasingly dizzy. He has had previous episodes of chest pain with palpitations but noted this to be the worst episode of chest pain he has ever had. PAST MEDICAL HISTORY:See Below PAST SURGICAL HISTORY:See Below FAMILY HISTORY:See Below SOCIAL HISTORY:See Below HOME MEDICATIONS:See list ALLERGIES:See list VITALS:See Below PHYSICAL EXAMINATION: HEENT: Head - normocephalic and atraumatic. Pupils are equal, round, and reactive to light. Extraocular eye muscles are intact, and sclera are anicteric. Nose - moist nasal mucosa without discharge. Mouth - moist buccal mucosa. Oropharynx is nonerythematous and there is no tonsillar exudate or edema noted. Neck: Supple; no JVD or cervical lymphadenopathy Heart: Regular rate and rhythm. There is a normal S1 and S2 with no murmurs, clicks, or gallops appreciated. Lungs: Clear to auscultation bilaterally with no wheezes, rales, or rhonchi. Abdomen: Soft, completely nontender, nondistended, with good bowel sounds. There are no palpable pulsatile masses or hepatosplenomegaly. There is no guarding, rigidity, or rebound noted. Extremities: No evidence of cyanosis, clubbing, or edema. There are easily palpable peripheral pulses. Skin: warm and dry with good turgor and no rashes. ED COURSE: Times/Reassessments: 0015:The patient was evaluated in room A9. A complete history and physical was performed. A twelve-lead EKG was obtained. An order was placed for continuous cardiac monitoring. The patient was in a normal sinus rhythm at a rate of 64. A portable chest x-ray was performed. 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 Vertebral artery occlusion Surgical History History of cardiac cath History of colonoscopy History of coronary artery bypass graft History of tonsillectomy Family History (Updated 02/25/23 @ 10:02 by Yadira Oglesby RN) Mother Cardiac disorder Breast cancer Family history of diabetes mellitus Hypertension Unknown Coronary heart disease Hypertension Father Cardiac disorder Myocardial infarction Heart disease Hypertension Denies family history of Ovarian cancer Prostate cancer Colorectal cancer Social History (Updated 02/25/23 @ 10:02 by Yadira Oglesby RN) Smoking Status: Never smoker Second Hand Exposure: No; Hx Alcohol Use: Yes Alcohol type: beer Alcohol Intake Frequency: 2-3 x/Week Hx Substance Use: No Preferred Language: Swiss Communication Ability: Effective Visual Impairment: Limited Hearing Ability: Normal Fueler Required: No Beliefs That Will Affect Care: None marital status: Current Living Situation: Spouse current occupational status: 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 How many Children do You have: 1 Other Information That Helps Us Care for You: No Feels Safe at Home: Yes Safety Concerns: Feels Safe At This Time Childhood Exposure to Second-Hand Smoke: No caffeine: No during the past year weight has: remained stable Dental Care, Regularly: Yes Physical Activity Frequency: Daily Physical Activity Frequency Comment: 45 mins treadmill Seatbelt Use: always Sunscreen Use: Yes Assistive Devices: Glasses Allergies Allergies Allergy/AdvReac Type Severity Reaction Status Date / Time codeine AdvReac Intermediate GI SYMPTOMS Verified 03/02/23 23:45 oxycodone AdvReac Intermediate Nausea Verified 03/02/23 23:45 sulfamethoxazole AdvReac Intermediate Nausea Verified 03/02/23 23:45 [From Bactrim] trimethoprim [From Bactrim] AdvReac Intermediate Nausea Verified 03/02/23 23:45 valacyclovir AdvReac Intermediate severe Verified 03/02/23 23:45 back pains Home Meds Home Medications Medication Instructions Recorded Confirmed ascorbic acid (vitamin C) 1,000 mg 1,000 mg PO QAM 04/24/19 03/02/23 tablet (Vitamin C) cyanocobalamin (vitamin B-12) 500 500 mcg PO QAM 04/24/19 03/02/23 mcg tablet (Vitamin B-12) multivitamin 1 tab PO QAM 04/24/19 03/02/23 triamcinolone acetonide 0.1 % 1 applic topical DAILY PRN scotal 02/11/21 03/02/23 topical cream itch lutein 20 mg tablet 20 mg PO QAM 06/11/21 03/02/23 vitamin E (dl, acetate) 180 mg 180 mg PO QAM 06/11/21 03/02/23 (400 unit) capsule omega [id number] oil 1,200 mg 1 cap PO QPM 05/26/22 03/02/23 (144 mg-216 mg) capsule (Fish Oil) garlic 300 mg capsule 300 mg PO PM 07/06/22 03/02/23 Saccharomyces boulardii 250 mg 250 mg PO DAILY 03/02/23 03/02/23 capsule (Daily Probiotic (S. boulardii)) allopurinol 100 mg tablet 100 mg PO QAM 03/02/23 03/02/23 amiodarone 200 mg tablet 300 mg PO QPM 03/02/23 03/02/23 amlodipine 10 mg tablet 10 mg PO QAM 03/02/23 03/02/23 aspirin 81 mg tablet,delayed 81 mg PO BID 03/02/23 03/02/23 release ezetimibe 10 mg tablet (Zetia) 10 mg PO HS 03/02/23 03/02/23 Previous Rx's Medication Instructions Recorded nitroglycerin 0.4 mg sublingual 0.4 mg sublingual UD PRN Angina 07/29/20 tablet (Nitrostat) #30 tabs prednisone 10 mg tablet 10 mg PO TID PRN gout flare ups #9 06/13/21 tabs rivaroxaban 2.5 mg tablet (Xarelto) 2.5 mg PO BID #180 tabs 08/27/22 rosuvastatin 40 mg tablet (Crestor) 40 mg PO HS #90 tabs 08/27/22 carvedilol 12.5 mg tablet 12.5 mg PO BID #180 tabs 12/28/22 losartan 50 mg tablet 50 mg PO BID #180 tabs 02/15/23 Results & Data (ED) Vital Signs Vital Signs - 24 hr 03/02/23 22:48 03/02/23 23:04 03/02/23 23:31 Temperature 36.8 C 36.9 C Temperature Source Temporal Artery Scan Oral Pulse Rate 71 66 Pulse Rate [Apical] 61 Pulse Rate from SpO2 Sensor Pulse Rhythm [Apical] Regular Pulse Strength [Apical] Normal Respiratory Rate 18 18 Respiratory Effort / Characteristics Non-Labored Spontaneous Non-Labored Spontaneous Respiratory Depth Normal Normal Respiratory Pattern Regular Blood Pressure 149/75 H Blood Pressure [Left Arm] 132/71 Blood Pressure Mean 99 Blood Pressure Mean [Left Arm] 91 Blood Pressure Position Sitting Blood Pressure Position [Left Arm] Sitting Pulse Oximetry 98 95 Oxygen Delivery Method Room Air Room Air Sepsis Recent Fever Within 48 Hours No Sepsis New/Unexplained Change in Mental Status No Sepsis Action Taken by Nursing No Action Required 03/02/23 23:31 03/03/23 00:00 03/03/23 00:30 Temperature Temperature Source Pulse Rate 62 56 L 58 L Pulse Rate [Apical] Pulse Rate from SpO2 Sensor 62 56 L 57 L Pulse Rhythm [Apical] Pulse Strength [Apical] Respiratory Rate 20 16 16 Respiratory Effort / Characteristics Respiratory Depth Respiratory Pattern Blood Pressure 132/71 111/69 119/76 Blood Pressure [Left Arm] Blood Pressure Mean 91 83 90 Blood Pressure Mean [Left Arm] Blood Pressure Position Blood Pressure Position [Left Arm] Pulse Oximetry 95 95 93 Oxygen Delivery Method Room Air Room Air Room Air Sepsis Recent Fever Within 48 Hours Sepsis New/Unexplained Change in Mental Status Sepsis Action Taken by Nursing 03/03/23 01:00 03/03/23 01:30 Temperature Temperature Source Pulse Rate 58 L 54 L Pulse Rate [Apical] Pulse Rate from SpO2 Sensor 58 L 55 L Pulse Rhythm [Apical] Pulse Strength [Apical] Respiratory Rate 17 16 Respiratory Effort / Characteristics Respiratory Depth Respiratory Pattern Blood Pressure 136/80 118/77 Blood Pressure [Left Arm] Blood Pressure Mean 98 90 Blood Pressure Mean [Left Arm] Blood Pressure Position Blood Pressure Position [Left Arm] Pulse Oximetry 94 94 Oxygen Delivery Method Room Air Room Air Sepsis Recent Fever Within 48 Hours Sepsis New/Unexplained Change in Mental Status Sepsis Action Taken by Nursing Laboratory Data 03/02/23 23:03 03/02/23 23:03 Lab Results 03/02/23 03/02/23 03/02/23 Range/Units 23:03 23:03 23:03 WBC 6.34 (4.8-10.8) K/ul RBC 4.88 (4.70-6.10) M/uL Hgb 15.1 (14.0-18.0) g/dl Hct 44.2 (42.0-52.0) % MCV 90.6 (80.0-100.0) fL MCH 30.9 (25.0-34.0) pg MCHC 34.2 (32.0-36.0) g/dL RDW Std Deviation 39.8 (36.4-46.3) fL RDW Coeff of Mayra 12.0 (11.5-14.5) % Plt Count 172 (130-400) K/uL MPV 9.2 L (9.4-12.4) fL Immature Gran % (Auto) 0.3 % Neut % (Auto) 59.7 % Lymph % (Auto) 20.7 % [place] % (Auto) 15.1 % Eos % (Auto) 3.3 % Baso % (Auto) 0.9 % Neut # (Auto) 3.78 (1.40-6.50) K/uL Lymph # (Auto) 1.31 (1.2-3.4) K/uL [place] # (Auto) 0.96 H (0.11-0.59) K/uL Eos # (Auto) 0.21 (0-0.50) K/uL Baso # (Auto) 0.06 (0-0.2) K/uL Immature Gran # (Auto) 0.02 (0.01-0.20) K/uL PT 12.5 H (9.0-12.0) Seconds INR 1.2 H (0.9-1.1) APTT 34.2 H (21.0-31.0) Seconds PTT Ratio 1.2 Sodium 136 (136-145) mmol/L Potassium 4.1 (3.5-5.1) mmol/L Chloride 105 (98-107) mmol/L Carbon Dioxide 27 (21-32) mmol/L Anion Gap 4 (3-11) BUN 24 H (6-23) mg/dl Creatinine 1.47 H (0.6-1.4) mg/dl Est Cr Clr Drug Dosing 45.0 ml/min Est GFR ( Amer) 56.0 ml/min Est GFR (Non-Af Amer) 48.3 ml/min BUN/Creatinine Ratio 16.3 (10-20) Glucose 121 H (70-99(Fasting)) mg/dl Calcium 8.8 (8.6-10.3) mg/dl Total Bilirubin 0.9 (0.2-1.0) mg/dl AST 56 H (13-39) U/L ALT 60 H (7-52) U/L Alkaline Phosphatase 100 (34-104) U/L Troponin I High Sens 6.8 (0-20) pg/ml Total Protein 7.1 (6.0-8.3) gm/dl Albumin 4.3 (3.4-5.0) gm/dl Globulin 2.8 (2.5-4.0) gm/dl Albumin/Globulin Ratio 1.5 (0.9-2) SARS-CoV-2, RNA, NAAT (NEGATIVE) 03/03/23 Range/Units 01:01 WBC (4.8-10.8) K/ul RBC (4.70-6.10) M/uL Hgb (14.0-18.0) g/dl Hct (42.0-52.0) % MCV (80.0-100.0) fL MCH (25.0-34.0) pg MCHC (32.0-36.0) g/dL RDW Std Deviation (36.4-46.3) fL RDW Coeff of Mayra (11.5-14.5) % Plt Count (130-400) K/uL MPV (9.4-12.4) fL Immature Gran % (Auto) % Neut % (Auto) % Lymph % (Auto) % [place] % (Auto) % Eos % (Auto) % Baso % (Auto) % Neut # (Auto) (1.40-6.50) K/uL Lymph # (Auto) (1.2-3.4) K/uL [place] # (Auto) (0.11-0.59) K/uL Eos # (Auto) (0-0.50) K/uL Baso # (Auto) (0-0.2) K/uL Immature Gran # (Auto) (0.01-0.20) K/uL PT (9.0-12.0) Seconds INR (0.9-1.1) APTT (21.0-31.0) Seconds PTT Ratio Sodium (136-145) mmol/L Potassium (3.5-5.1) mmol/L Chloride (98-107) mmol/L Carbon Dioxide (21-32) mmol/L Anion Gap (3-11) BUN (6-23) mg/dl Creatinine (0.6-1.4) mg/dl Est Cr Clr Drug Dosing ml/min Est GFR ( Amer) ml/min Est GFR (Non-Af Amer) ml/min BUN/Creatinine Ratio (10-20) Glucose (70-99(Fasting)) mg/dl Calcium (8.6-10.3) mg/dl Total Bilirubin (0.2-1.0) mg/dl AST (13-39) U/L ALT (7-52) U/L Alkaline Phosphatase (34-104) U/L Troponin I High Sens (0-20) pg/ml Total Protein (6.0-8.3) gm/dl Albumin (3.4-5.0) gm/dl Globulin (2.5-4.0) gm/dl Albumin/Globulin Ratio (0.9-2) SARS-CoV-2, RNA, NAAT NEGATIVE (NEGATIVE) Administered Medications Dextrose/Sodium Chloride (D5w And 1/2nss) 1,000 mls @ 80 mls/hr IV .[id number] SEBASTIÁN Stop: 03/04/23 03:44 Last Admin: 03/03/23 03:01 Dose: 80 mls/hr Documented By: ESTEPHANIA Discontinued Medications Fentanyl Citrate (Fentanyl Citrate Pf 100 Mcg/2 Ml Vial) 50 mcg IV NOW STA Stop: 03/03/23 00:43 Last Admin: 03/03/23 00:56 Dose: 50 mcg Documented By: MARCIN Sodium Chloride (Nss) 500 mls @ 999 mls/hr IV .Q31M ONE Stop: 03/03/23 01:12 Last Infusion: 03/03/23 01:31 Dose: 0 mls/hr Documented By: Admin: 03/03/23 00:56 Dose: 999 mls/hr Documented By: MARCIN Morphine Sulfate (Morphine Sulfate 2 Mg/Ml Carp) 2 mg IV NOW STA Stop: 03/03/23 03:44 Last Admin: 03/03/23 03:56 Dose: 2 mg Documented By: ESTEPHANIA Ondansetron HCl (Ondansetron Inj 2 Mg/Ml 2 Ml Vial) 4 mg IV NOW STA Stop: 03/03/23 00:43 Last Admin: 03/03/23 00:57 Dose: 4 mg Documented By: Imaging Data Radiologist's Impression: Chest X-Ray 03/02/23 23:22 SINGLE VIEW CHEST CLINICAL HISTORY: Atypical chest pain. FINDINGS: An AP, portable, upright chest radiograph is compared to study dated 08/26/2021. The patient is status post midline sternotomy. An electronic device projects over the chest. The heart is mildly enlarged noting atherosclerotic calcification of the thoracic aorta. The pulmonary vasculature is noncongested. The lungs and pleural spaces are clear noting mild bibasilar scarring/atelec tasis. No pneumothorax is seen. The bony thorax is grossly intact. IMPRESSION: Cardiomegaly with no acute cardiopulmonary abnormality. ACT 112: Negative or not required by law. Electronically signed by: Artie Peters M.D. 03/03/2023 7:10 AM Discharge Plan Visit Data Chief Complaint: Chest Pain Stated Complaint: CHEST PAIN,HEART PALPITATION ED Provider: Jolene Schwab Discharge Problem: Substernal chest pain, Dyspnea Patient Disposition: Admitted As Inpatient Discharge Instructions Interventions: ED Discharge Assessment Last Done: 03/03/23 02:47 Dyspnea Qualifiers: Dyspnea type: unspecified Qualified Code(s): R06.00 - Dyspnea, unspecified
--- NOTE | 2023-03-03 07:11 | XRay Report ---
SINGLE VIEW CHEST CLINICAL HISTORY: Atypical chest pain. FINDINGS: An AP, portable, upright chest radiograph is compared to study dated 08/26/2021. The patien t is status post midline sternotomy. An electronic device projects over the chest. The heart is mildl y enlarged noting atherosclerotic calcification of the thoracic aorta. The pulmonary vasculature is n oncongested. The lungs and pleural spaces are clear noting mild bibasilar scarring/atelectasis. No pn eumothorax is seen. The bony thorax is grossly intact. IMPRESSION: Cardiomegaly with no acute cardiopulmonary abnormality. ACT 112: Negative or not required by law. Electronically signed by: Artie Peters M.D. 03/03/2023 7:10 AM
[2023-03-03] MEDS: amLODIPine BESYLATE 5 MG TAB PO SCH (08:47)
[2023-03-03] MEDS: LOSARTAN POTASSIUM 50 MG TAB PO SCH ×2 (08:47→21:06)
[2023-03-03] MEDS: ASCORBIC ACID 500 MG TAB PO SCH (08:47)
--- NOTE | 2023-03-03 08:58 | Hospitalist Progress Note ---
Date of Service March 03, 2023 Assessment & Plan (1) Chest pain: Plan: 67 year old male w/ complex cardiac history, restrictive lung disease, gout, anxiety/depression admitted for chest and abdominal pain. Acute chest pain -extensive past cardiac history including bypass in 2002 and 2018, A fib, PVCs, vertebral artery occlusion. -EKG w/ NSR, no acute ST changes or changes compared to prior EKG. -Troponin negative x2 -Echo from 10/12/22 EF 55-60%, no regional wall motion abnormalities. -Cardiology consulted- clearance given for OR, resume carvedilol, amlodipine, amiodarone in AM Acute abdominal pain -US of liver 02/17 showed cholelithiasis and biliary sludge, hepatic steatosis w/o cholecystitis. -AST/ALT 56/60, TB 0.9, ALP 100 -Suggestive of hepatobiliary process, original plan for elective cholecystectomy in 03/2023 -HIDA scan scheduled for AM -General surgery consulted- no plans for cholecystectomy today, will follow up HIDA scan -If HIDA positive, plan for OR Wednesday -If HIDA negative, will get elective cholecystectomy as planned -Pain control Paroxysmal atrial fibrillation -Currently sinus, rate-controlled -On amiodarone, dose recently increased to 300 mg in early 01/2023 -Holding Xarelto for potential OR, currently on heparin for anticoagulation -Resume carvedilol History of frequent PVCs -On amiodarone, carvedilol -Cardiology consulted for pacemaker interrogation CAD -Resume amlodipine, Zetia, atorvastatin -Resume losartan later pending BP response HTN -Resume home amlodipine, carvedilol -Resume losartan pending BP response Gout: -Resume home allopurinol Restrictive lung disease: -No active pulmonary symptoms or physical exam findings. -Currently stable respiratory status F/E/N/GI: Heart healthy, IVF DVT Prophylaxis: Heparin, holding Xarelto in setting of potential OR Code status: Conditional - CPR and shock, no intubation or artificial ventilation. If any updates or concerns please contact patient's Jessica [phone]. Dispo: medical/surgical with telemetry (2) Midepigastric pain: (3) Symptomatic cholelithiasis: (4) History of coronary artery bypass graft: (5) PAD (peripheral artery disease): (6) Frequent PVCs: (7) Depression: (8) Anxiety: (9) Gout: (10) Restrictive lung disease: (11) Status post placement of implantable loop recorder: (12) H/O: stroke: (13) HTN (hypertension): (14) CAD (coronary artery disease): (15) Vertebral artery occlusion: Admission and Anticipated Discharge Date Admission Date: March 03, 2023 Supervising Physician Co-Signing Physician Notes I personally examined the patient and verified all [place] points of history and exam, discussed case, and agree with decision making with Dr Garcia Feeling okay. HIDA this afternoon Vitals noted, in general no distress. Breathing unlabored no accessory muscle use good effort. Skin shows no rashes no pallor or icterus. Chest/abdominal painseems to be symptomatic gallstonesHIDA today. Otherwise as above. Subjective Acute events overnight- none. Did receive morphine 2mg for abdominal pain. Pt examined at bedside. Denies chest pain but continues to feel low-moderate severity abdominal pain- primarily epigastric. Review of Systems Review of Systems: As per HPI. Physical Exam Constitutional: WD/WN, vitals as above Eyes: PERRL, conjunctivae normal, anicteric sclerae ENMT: external ear and nose normal, oropharynx normal Respiratory: normal respiratory effort, lungs clear to auscultation Cardiovascular: Rate/Rhythm: + irregularly irregular Heart Sounds: normal S1 and normal S2 Gastrointestinal (Abdomen): soft, nondistended, +diffusely tender greatest in epigastrium without rebound/guarding, no hepatosplenomegaly Skin: no rashes, warm and dry Psychiatric: A+Ox3, euthymic affect Results & Data Results & Data Vital Signs (Past 12 Hours) Vital Signs Temp Pulse Pulse Pulse Resp BP BP 03/03/23 07:59 36.5 C 53 L 16 116/63 03/03/23 07:56 55 L 03/03/23 03:30 55 L 03/03/23 02:45 36.7 C 56 L 16 145/80 H 03/03/23 02:30 54 L 16 104/61 03/03/23 02:00 56 L 16 116/68 03/03/23 01:30 54 L 16 118/77 03/03/23 01:00 58 L 17 136/80 03/03/23 00:30 58 L 16 119/76 03/03/23 00:00 56 L 16 111/69 03/02/23 23:31 62 20 132/71 03/02/23 23:31 36.9 C 61 18 132/71 03/02/23 23:04 66 03/02/23 22:48 36.8 C 71 18 149/75 H Pulse Ox O2 Del Method 03/03/23 07:59 93 Room Air 03/03/23 07:56 03/03/23 03:30 03/03/23 02:45 95 Room Air 03/03/23 02:30 94 Room Air 03/03/23 02:00 93 Room Air 03/03/23 01:30 94 Room Air 03/03/23 01:00 94 Room Air 03/03/23 00:30 93 Room Air 03/03/23 00:00 95 Room Air 03/02/23 23:31 95 Room Air 03/02/23 23:31 95 Room Air 03/02/23 23:04 03/02/23 22:48 98 Room Air Resident Activity Tracking Resident Involvement: Resident Care Provided Care Provided: Adult Hospital Medicine (13) HTN (hypertension) Hypertension type: essential hypertension Qualified Code(s): I10 - Essential (primary) hypertension (14) CAD (coronary artery disease) Associated angina: without angina Coronary Disease-Associated Artery/Lesion type: unspecified vessel or lesion type [place] vs. transplanted heart: [place] heart Qualified Code(s): I25.10 - Atherosclerotic heart disease of [place] coronary artery without angina pectoris
[2023-03-03] MEDS ORDERED: carvediloL 12.5 MG TAB PO SCH (09:00)
[2023-03-03] MEDS ORDERED: MoRPHine SULFATE 2 MG/ML CARP IV PRN (09:18)
--- NOTE | 2023-03-03 10:15 | Surgery Consultation ---
Date of Consultation March 03, 2023 Assessment & Plan (1) Symptomatic cholelithiasis: This is a 67yM with a PMH of PAD, CAD s/p CABG x2, depression/anxiety, restrictive lung disease, h/o stroke, HTN, implantable loop recorder in place who presents to the [facility] ED on 03/02/23 with complaints of both chest and abd ominal pain. Of note patient was recently seen in our surgery clinic on 02/25 for evaluation of gallstones and was scheduled for outpatient surgery on 03/16 after obtaining cardiac clearance and blood thinners were held. He has been dealing with abdominal pain over the last several weeks mostly in the epigastric region, but his chest pain and concern for PVCs brought him into the ER last night for evaluation. RUQ US on 02/17 showed cholelithiasis with sludge without evidence of acute cholecystitis. On admission WBC 6.4, INR 1.2, Cr 1.47 and LFTs show Tb: 0.9, AST:56, ALT: 60, AlkP: 100. Vital signs are stable. On exam patient's abdomen is soft, non distended with mild discomfort throughout, but worse in the RUQ and epigastric regions to palpation. He is currently NPO, however no plans for acute vishnu today. He will need cardiac clearance prior to any surgical intervention. We will follow up on his HIDA scan for further recommendations and discuss on inpatient vs. outpt procedure, as at this time there is no evidence of acute cholecystitis. Will follow. Supervising Physician Co-Signing Physician Notes I personally saw and evaluated the patient with Tracey Vences PA-C and agree with the assessment and plan. 67-year-old male with upper abdominal pain and known cholelithiasis Patient's been admitted to the medical team with chest pain and is being seen by cardiology His Xarelto is being held, this is reasonable in case his HIDA scan is positive Agree with the HIDA scan, we will follow-up the results If the HIDA scan is positive, we will tentatively plan on cholecystectomy this Wednesday after he has been off his Xarelto If the HIDA scan is negative, he can be discharged from a surgical standpoint and follow-up for his cholecystectomy as scheduled History of Present Illness Reason for Consultation: Abdominal pain, rule out acute cholecystitis Attending Physician: James Marie, DO History of Present Illness This is a 67yM with a PMH of PAD, CAD s/p CABG x2, depression/anxiety, restrictive lung disease, h/o stroke, HTN, implantable loop recorder in place who presents to the [facility] ED on 03/02/23 with complaints of abdominal pain and chest pain. Of note patient was recently seen in our surgery clinic on 02/25 for evaluation of gallstones. Patient with a significant cardiac history including being on xarelto. So after evaluation it was deemed he would need cardiac clearance in addition to holding some of his meds- fish oil and xarelto prior to proceeding with surgical intervention and is currently scheduled for 03/16. On this current admission patient reports his chest pain started yesterday and was having PVC's with this. He thought he was having a heart attack and came into the ER. He reports his abdominal pain has been ongoing over the last few weeks but has been worsening in severity over the last few days. His pain is mostly located in the mid abdomen and epigastric region. He reports mild nausea, but no emesis. No SOB, F/V, back pain. Some diarrhea yesterday. Reports last dose of blood thinner was yesterday evening. Allergies Allergy/AdvReac Type Severity Reaction Status Date / Time codeine AdvReac Intermediate GI SYMPTOMS Verified 03/02/23 23:45 oxycodone AdvReac Intermediate Nausea Verified 03/02/23 23:45 sulfamethoxazole AdvReac Intermediate Nausea Verified 03/02/23 23:45 [From Bactrim] trimethoprim [From Bactrim] AdvReac Intermediate Nausea Verified 03/02/23 23:45 valacyclovir AdvReac Intermediate severe Verified 03/02/23 23:45 back pains Home Medications Medication Instructions Recorded Confirmed Type ascorbic acid (vitamin C) 1,000 mg 1,000 mg PO QAM 04/24/19 03/02/23 History tablet (Vitamin C) cyanocobalamin (vitamin B-12) 500 500 mcg PO QAM 04/24/19 03/02/23 History mcg tablet (Vitamin B-12) multivitamin 1 tab PO QAM 04/24/19 03/02/23 History nitroglycerin 0.4 mg sublingual 0.4 mg sublingual UD PRN Angina 07/29/20 03/02/23 Rx tablet (Nitrostat) #30 tabs triamcinolone acetonide 0.1 % 1 applic topical DAILY PRN scotal 02/11/21 03/02/23 History topical cream itch lutein 20 mg tablet 20 mg PO QAM 06/11/21 03/02/23 History vitamin E (dl, acetate) 180 mg 180 mg PO QAM 06/11/21 03/02/23 History (400 unit) capsule prednisone 10 mg tablet 10 mg PO TID PRN gout flare ups #9 06/13/21 03/02/23 Rx tabs omega 6-tnx-evz-fish oil 1,200 mg 1 cap PO QPM 05/26/22 03/02/23 History (144 mg-216 mg) capsule (Fish Oil) garlic 300 mg capsule 300 mg PO PM 07/06/22 03/02/23 History rivaroxaban 2.5 mg tablet (Xarelto) 2.5 mg PO BID #180 tabs 08/27/22 03/02/23 Rx rosuvastatin 40 mg tablet (Crestor) 40 mg PO HS #90 tabs 08/27/22 03/02/23 Rx carvedilol 12.5 mg tablet 12.5 mg PO BID #180 tabs 12/28/22 03/02/23 Rx losartan 50 mg tablet 50 mg PO BID #180 tabs 02/15/23 03/02/23 Rx Saccharomyces boulardii 250 mg 250 mg PO DAILY 03/02/23 03/02/23 History capsule (Daily Probiotic (S. boulardii)) allopurinol 100 mg tablet 100 mg PO QAM 03/02/23 03/02/23 History amiodarone 200 mg tablet 300 mg PO QPM 03/02/23 03/02/23 History amlodipine 10 mg tablet 10 mg PO QAM 03/02/23 03/02/23 History aspirin 81 mg tablet,delayed 81 mg PO BID 03/02/23 03/02/23 History release ezetimibe 10 mg tablet (Zetia) 10 mg PO HS 03/02/23 03/02/23 History Patient History Medical History Abdominal pain Acute lower gastrointestinal bleeding resolved per pt Aneurysm of right internal iliac artery Anxiety and depression CAD (coronary artery disease) Chronic dysfunction of both eustachian tubes Diverticulitis Gout H/O: stroke Nov 2020 > no residual effects, follows with [facility] History of asthma A CHILD HTN (hypertension) Hyperlipidemia Implantable loop recorder present placed Sep 2021 at [facility] Ischemic cardiomyopathy Myocardial Infarction 1999 Ocular migraine PAD (peripheral artery disease) PVC (premature ventricular contraction) follows with Dr. 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 Vertebral artery occlusion Surgical History History of cardiac cath 1999 AND 2018 History of colonoscopy with polypectomy History of coronary artery bypass graft X 4 VESSELS IN 1999 X 3 VESSELS IN 2018 History of tonsillectomy Family History Mother Cardiac disorder Breast cancer Family history of diabetes mellitus Hypertension Unknown Coronary heart disease Hypertension Father Cardiac disorder Myocardial infarction Heart disease Hypertension Denies family history of Ovarian cancer Prostate cancer Colorectal cancer Social History Smoking Status: Never smoker Second Hand Exposure: No; Hx Alcohol Use: Yes Alcohol type: beer Alcohol Intake Frequency: 2-3 x/Week Hx Substance Use: No Preferred Language: Angolan Communication Ability: Effective Visual Impairment: Limited Hearing Ability: Normal [place] Salv[employer] Required: No Beliefs That Will Affect Care: None marital status: Current Living Situation: Spouse current occupational status: 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 How many Children do You have: 1 Other Information That Helps Us Care for You: No Feels Safe at Home: Yes Safety Concerns: Feels Safe At This Time Childhood Exposure to Second-Hand Smoke: No caffeine: No during the past year weight has: remained stable Dental Care, Regularly: Yes Physical Activity Frequency: Daily Physical Activity Frequency Comment: 45 mins treadmill Seatbelt Use: always Sunscreen Use: Yes Assistive Devices: Glasses Review of Systems Constitutional: + sweats; no fever and no chills Respiratory: no dyspnea Cardiovascular: + chest pain Gastrointestinal: + abdominal pain (epigastric region), + nausea and + diarrhea/loose stools (yesterday); no vomiting Physical Exam Physical Exam: awake/alert, no distress Constitutional: well developed and well nourished; no acute distress and not ill appearing Respiratory: normal respiratory effort Gastrointestinal (Abdomen): Inspection/Auscultation: abdomen not distended Percussion/Palpation: + abdomen tender (mild discomfort throughout abd but worse in the epigastric/RUQ regions) and abdomen soft; no guarding and abdomen not rigid Results & Data Vital Signs (Past 12 Hours) Vital Signs Temp Pulse Pulse Pulse Resp BP BP 03/03/23 07:59 36.5 C 53 L 16 116/63 03/03/23 07:56 55 L 03/03/23 03:30 55 L 03/03/23 02:45 36.7 C 56 L 16 145/80 H 03/03/23 02:30 54 L 16 104/61 03/03/23 02:00 56 L 16 116/68 03/03/23 01:30 54 L 16 118/77 03/03/23 01:00 58 L 17 136/80 03/03/23 00:30 58 L 16 119/76 03/03/23 00:00 56 L 16 111/69 03/02/23 23:31 62 20 132/71 03/02/23 23:31 36.9 C 61 18 132/71 03/02/23 23:04 66 03/02/23 22:48 36.8 C 71 18 149/75 H Pulse Ox O2 Del Method 03/03/23 07:59 93 Room Air 03/03/23 07:56 03/03/23 03:30 03/03/23 02:45 95 Room Air 03/03/23 02:30 94 Room Air 03/03/23 02:00 93 Room Air 03/03/23 01:30 94 Room Air 03/03/23 01:00 94 Room Air 03/03/23 00:30 93 Room Air 03/03/23 00:00 95 Room Air 03/02/23 23:31 95 Room Air 03/02/23 23:31 95 Room Air 03/02/23 23:04 03/02/23 22:48 98 Room Air Diagnostic Findings ULTRASOUND RIGHT UPPER QUADRANT ABDOMEN CLINICAL HISTORY: Central abdominal pain. COMPARISON STUDY: Abdominal CT dated 05/27/2022. TECHNIQUE: Real-time, grayscale, and color flow sonography of the right upper quadrant of the abdomen was performed. Images are reviewed in the transverse and longitudinal planes. FINDINGS: Liver: The liver is normal in size and demonstrates heterogeneously increased echotexture indicating steatosis. There is no intrahepatic biliary ductal dilatation. The main portal vein is patent. A 1.4 cm cyst is incidentally noted in the left lobe. This is unchanged. Gallbladder: There are gallstones and biliary sludge. There is no gallbladder wall thickening or pericholecystic fluid. A sonographic Chen's sign is reportedly absent. The common bile duct measures up to 0.6 cm in diameter. Pancreas: Visualized portions of the pancreatic head and body are normal in appearance. Right kidney: Survey images of the right kidney demonstrate normal size and echotexture. There is no hydronephrosis. Ascites: None. IMPRESSION: 1. Cholelithiasis and biliary sludge with no sonographic evidence of acute cholecystitis. 2. Hepatic steatosis. ACT 112: Negative or not required by law. Electronically signed by: Artie Peters M.D. 02/17/2023 12:10 PM PG Care Time/CCT Total # of Minutes Spent Total Time Spent with Patient: Total time spent is greater than 50% in coordination of care (as documented) at patient's floor/unit and/or counseling patient: Coding Level of Care Code 63252 INT INP/OBS CARE 2/55MIN Diagnoses Symptomatic cholelithiasis K80.20
--- NOTE | 2023-03-03 10:56 | Cardiology Consultation ---
Date of Consultation March 03, 2023 Assessment & Plan (1) Midepigastric pain: (2) Chest pain: (3) CAD (coronary artery disease): (4) History of coronary artery bypass graft: (5) Frequent PVCs: (6) Ischemic cardiomyopathy: Plan Mr. Reed is a 67 year old male with a history of CAD s/p CABG in 2003 and re-do in 2018, Atrial Fibrillation, PVC's, CVA s/p Medtronic LINQ ILR, Dyslipidemia, Hypertension, PAD, Vertebral Artery Occlusion, and Restrictive Lung Disease who presented to [facility] ER last night stating that at approximately 9 p.m. he developed some substernal chest discomfort, upper abdominal discomfort, nausea, shortness of breath, and dizziness. He then noticed increased palpitations. He has a known history of PVCs. With the increased PVCs, he was becoming increasingly dizzy. He has had previous episodes of chest pain with palpitations but noted that this episode was the worst episode of chest pain he has ever had. I saw this patient on 02/16/23 after he experienced an episode of Atypical Chest and Upper Abdominal Pain. He was walking on the treadmill 4 days prior and he had sudden onset pain in his Midepigastrium/Lower Chest that felt like "somebody punched me very hard." This sensation lasted for about one second in total. He did not have any associated symptoms, and specifically denying any associated nausea, vomiting, diaphoresis, or dyspnea. He subsequently stopped exercising until he was further evaluated. He has not experienced this sensation again while walking or doing his day-to-day activities. So far his cardiac workup is unremarkable -- high sensitivity Troponin I are 6.4 pg/mL and 6.8 pg/mL. EKG is without acute or dynamic changes. Interrogation of his loop recorder shows occasional PVC's but no significant arrhythmias. Additionally, he has elevated ALT/AST and scans dating back to 05/2022 that have demonstrated cholelithiasis with sludge but no evidence of acute cholecystitis. Patient has upper abdominal tenderness/symptomatic cholelithiasis -- therefore the treatment of choice a cholecystectomy. Patient was reassured that his cardiac work-up is negative. I suspect his intermittent chest pain is related to his gall bladder disease as well. No further ischemic work-up is necessary at this time. He made proceed with cholecystectomy as planned -- we recommend that he takes his usual doses of Amlodipine, Amiodarone, and Carvedilol on the morning of surgery with sips of water. Thank you for asking us to see this patient in consultation. History of Present Illness Reason for Consultation: -- Chest and Upper Abdominal Pain. -- PVC's. -- Interrogation of Medtronic LNQ II ILR. Attending Physician: James Marie DO History of Present Illness Mr. Reed is a 67 year old male with a history of CAD s/p CABG in 2003 and re-do in 2018, Atrial Fibrillation, PVC's, CVA s/p Medtronic LINQ ILR, Dyslipidemia, Hypertension, PAD, Vertebral Artery Occlusion, and Restrictive Lung Disease who presented to [facility] ER last night stating that at approximately 9 p.m. he developed some substernal chest discomfort, upper abdominal discomfort, nausea, shortness of breath, and dizziness. He then noticed increased palpitations. He has a known history of PVCs. With the increased PVCs, he was becoming increasingly dizzy. He has had previous episodes of chest pain with palpitations but noted that this episode was the worst episode of chest pain he has ever had. I saw this patient on 02/16/23 after he experienced an episode of Atypical Chest and Upper Abdominal Pain. He was walking on the treadmill 4 days prior and he had sudden onset pain in his Midepigastrium/Lower Chest that felt like "somebody punched me very hard." This sensation lasted for about one second in total. He did not have any associated symptoms, and specifically denying any associated nausea, vomiting, diaphoresis, or dyspnea. He subsequently stopped exercising until he was further evaluated. He has not experienced this sensation again while walking or doing his day-to-day activities. Leading up to that visit he was having PVCs in increasing frequency. He follows with Dr. Flores for this and was started on Amiodarone 200 mg daily and as his PVCs persisted he had increased his Amiodarone to 300 mg daily. Despite his PVC's he was able to continue his usual exercise program which includes at least 45 minutes daily on the treadmill. His exertional tolerance was stable and he did not have any drop-off in his stamina or exercise tolerance. Patient has elevated ALT/AST and scans dating back to 05/2022 have demonstrated cholelithiasis with sludge but no evidence of acute cholecystitis. He is compliant with his medications. He has had the following studies/procedures: 1. CABG x 4 Vessels August 2000: WOOD to LAD, SVG to Diagonal, SVG to LCx OM, SVG to PDA. 2. Cardiac Catheterization 10/16/2011 [facility]: LM 100% except for giving rise to very small caliber and short diagonal. 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 Proximal RCA 100%. Right to right and right to left collaterals. WOOD to LAD demonstrated very severe stenosis of the distal anastomosis. Faint visualization of distal LAD and diagonal through this graft. SVG to Diagonal patent. SVG to circumflex marginal patent. AV groove circumflex 90%. SVG to PDA patent. PDA 70%-80%. Right to left collaterals to LAD and diagonal. 3. Redo CABG 05/20/18 [facility]: CODI to OM 2, SVG to diagonal, SVG to PDA. 4. Echo 02/25/2021 [facility]: Normal LV size, systolic function, wall motion. EF 55%- 60%. Mild LVH. No significant valvular abnormalities. 5. Loop Recorder Implantation 09/02/2021: Dr. Flores. Done for cryptogenic stroke. 6. Echo 10/12/2022 [facility]: Normal LV size, wall motion, systolic function. EF 55%-60%. Borderline dilated RV with mildly reduced systolic function. Sclerotic aortic valve with trace AI. No significant change from 02/25/2021 study. Allergies Allergy/AdvReac Type Severity Reaction Status Date / Time codeine AdvReac Intermediate GI SYMPTOMS Verified 03/02/23 23:45 oxycodone AdvReac Intermediate Nausea Verified 03/02/23 23:45 sulfamethoxazole AdvReac Intermediate Nausea Verified 03/02/23 23:45 [From Bactrim] trimethoprim [From Bactrim] AdvReac Intermediate Nausea Verified 03/02/23 23:45 valacyclovir AdvReac Intermediate severe Verified 03/02/23 23:45 back pains Home Medications Medication Instructions Recorded Confirmed Type ascorbic acid (vitamin C) 1,000 mg 1,000 mg PO QAM 04/24/19 03/02/23 History tablet (Vitamin C) cyanocobalamin (vitamin B-12) 500 500 mcg PO QAM 04/24/19 03/02/23 History mcg tablet (Vitamin B-12) multivitamin 1 tab PO QAM 04/24/19 03/02/23 History nitroglycerin 0.4 mg sublingual 0.4 mg sublingual UD PRN Angina 07/29/20 03/02/23 Rx tablet (Nitrostat) #30 tabs triamcinolone acetonide 0.1 % 1 applic topical DAILY PRN scotal 02/11/21 03/02/23 History topical cream itch lutein 20 mg tablet 20 mg PO QAM 06/11/21 03/02/23 History vitamin E (dl, acetate) 180 mg 180 mg PO QAM 06/11/21 03/02/23 History (400 unit) capsule prednisone 10 mg tablet 10 mg PO TID PRN gout flare ups #9 06/13/21 03/02/23 Rx tabs omega [id number]-[id number]-fish oil 1,200 mg 1 cap PO QPM 05/26/22 03/02/23 History (144 mg-216 mg) capsule (Fish Oil) garlic 300 mg capsule 300 mg PO PM 07/06/22 03/02/23 History rivaroxaban 2.5 mg tablet (Xarelto) 2.5 mg PO BID #180 tabs 08/27/22 03/02/23 Rx rosuvastatin 40 mg tablet (Crestor) 40 mg PO HS #90 tabs 08/27/22 03/02/23 Rx carvedilol 12.5 mg tablet 12.5 mg PO BID #180 tabs 12/28/22 03/02/23 Rx losartan 50 mg tablet 50 mg PO BID #180 tabs 02/15/23 03/02/23 Rx Saccharomyces boulardii 250 mg 250 mg PO DAILY 03/02/23 03/02/23 History capsule (Daily Probiotic (S. boulardii)) allopurinol 100 mg tablet 100 mg PO QAM 03/02/23 03/02/23 History amiodarone 200 mg tablet 300 mg PO QPM 03/02/23 03/02/23 History amlodipine 10 mg tablet 10 mg PO QAM 03/02/23 03/02/23 History aspirin 81 mg tablet,delayed 81 mg PO BID 03/02/23 03/02/23 History release ezetimibe 10 mg tablet (Zetia) 10 mg PO HS 03/02/23 03/02/23 History Patient History Medical History Abdominal pain Acute lower gastrointestinal bleeding resolved per pt Aneurysm of right internal iliac artery Anxiety and depression CAD (coronary artery disease) Chronic dysfunction of both eustachian tubes Diverticulitis Gout H/O: stroke Nov 2020 > no residual effects, follows with [facility] History of asthma A CHILD HTN (hypertension) Hyperlipidemia Implantable loop recorder present placed Sep 2021 at [facility] Ischemic cardiomyopathy Myocardial Infarction 1999 Ocular migraine PAD (peripheral artery disease) PVC (premature ventricular contraction) follows with Dr. 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 Vertebral artery occlusion Surgical History History of cardiac cath 1999 AND 2017 History of colonoscopy with polypectomy History of coronary artery bypass graft X 4 VESSELS IN 1999 X 3 VESSELS IN 2018 History of tonsillectomy Family History Mother Cardiac disorder Breast cancer Family history of diabetes mellitus Hypertension Unknown Coronary heart disease Hypertension Father Cardiac disorder Myocardial infarction Heart disease Hypertension Denies family history of Ovarian cancer Prostate cancer Colorectal cancer Social History Smoking Status: Never smoker Second Hand Exposure: No; Hx Alcohol Use: Yes Alcohol type: beer Alcohol Intake Frequency: 2-3 x/Week Hx Substance Use: No Preferred Language: Nigerian Communication Ability: Effective Visual Impairment: Limited Hearing Ability: Normal Film Writer Required: No Beliefs That Will Affect Care: None marital status: Current Living Situation: Spouse current occupational status: 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 Physical Exam Physical Exam: HR 53 and regular, BP 116/63. GENERAL: Patient in no acute distress. HEENT: Head is atraumatic, normocephalic. EOM's intact. Facies symmetric. No perioral cyanosis. NECK: No JVD. JVP is not elevated. Carotid upstrokes are + 2 bilaterally. No bruits are noted. CHEST/LUNGS: Clear to auscultation throughout all lung serrato. No wheezes, rales, or crackles. CVS: S1 and S2 are regular without obvious murmurs, gallops, or rubs. Occasional ectopy noted. PMI is nondisplaced. No lifts, heaves, or thrills. No abdominal aortic or renal bruits. Palpable loop recorder is present at the left sternal border. ABDOMINAL EXAM: Bowel sounds are present. Upper abdomen and midepigastrium are diffusely tender to palpation. EXTREMITIES: No clubbing or cyanosis. No edema. Intact posterior tibial and radial pulses bilaterally. NEUROLOGIC EXAM: Patient is awake, alert, and oriented. Pleasant and cooperative. Answers questions appropriately. Speech is clear. Gait pattern not assessed. Interrogation of his MyEveTabtronic LNQ II ILR shows: -- Occasional PVC's. -- No tachycardic events. -- No bradycardic events. -- No cardiac pauses. -- No atrial fibrillation. -- No patient activated events (although patient states that he used his fob last night). EKG 03/02/23: -- NSR at 69 bpm with possible anterior infarct cited on or before 08/26/21. -- No acute changes. -- Unchanged from 08/26/21 tracing. Results & Data Vital Signs (Past 12 Hours) Vital Signs Temp Pulse Pulse Pulse Resp BP BP 03/03/23 07:59 36.5 C 53 L 16 116/63 03/03/23 07:56 55 L 03/03/23 03:30 55 L 03/03/23 02:45 36.7 C 56 L 16 145/80 H 03/03/23 02:30 54 L 16 104/61 03/03/23 02:00 56 L 16 116/68 03/03/23 01:30 54 L 16 118/77 03/03/23 01:00 58 L 17 136/80 04/26/23 00:30 58 L 16 119/76 03/03/23 00:00 56 L 16 111/69 03/02/23 23:31 62 20 132/71 03/02/23 23:31 36.9 C 61 18 132/71 03/02/23 23:04 66 03/02/23 22:48 36.8 C 71 18 149/75 H Pulse Ox O2 Del Method 03/03/23 07:59 93 Room Air 03/03/23 07:56 03/03/23 03:30 03/03/23 02:45 95 Room Air 03/03/23 02:30 94 Room Air 03/03/23 02:00 93 Room Air 03/03/23 01:30 94 Room Air 03/03/23 01:00 94 Room Air 03/03/23 00:30 93 Room Air 03/03/23 00:00 95 Room Air 03/02/23 23:31 95 Room Air 03/02/23 23:31 95 Room Air 03/02/23 23:04 03/02/23 22:48 98 Room Air PG Care Time/CCT Total # of Minutes Spent Total Time Spent with Patient: Total time spent is greater than 50% in coordination of care (as documented) at patient's floor/unit and/or counseling patient:48 C[place] [address] INT INP/OBS CARE 2/55MIN Patient Type Established History Detailed Exam Detailed Medical Decision Making Moderate Complexity Diagnoses Midepigastric pain R10.13 Chest pain R07.9 CAD (coronary artery disease) I25.10 Coronary Disease-Associated Artery/Lesion type: unspecified vessel or lesion type [place] vs. transplanted heart: [place] heart Associated angina: without angina History of coronary artery bypass graft Z95.1 Frequent PVCs I49.3 Ischemic cardiomyopathy I25.5 Time Spent (min) 64 (3) CAD (coronary artery disease) Coronary Disease-Associated Artery/Lesion type: unspecified vessel or lesion type [place] vs. transplanted heart: [place] heart Associated angina: without angina Qualified Code(s): I25.10 - Atherosclerotic heart disease of [place] coronary artery without angina pectoris
[2023-03-03] MEDS ORDERED: MoRPHine SULFATE 2 MG/ML CARP IV ONE (11:42)
[2023-03-03] MEDS ORDERED: Heparin IV Adult Wt-Based Standard *NO* Bolus Protocol IV SCH (14:18)
[2023-03-03] MEDS ORDERED: HEPARIN SODIUM/DEXTROSE 25,000 UNITS/500 ML BAG IV SCH (14:30)
--- NOTE | 2023-03-03 16:47 | Electrocardiogram Report ---
Test Reason : Blood Pressure : / mmHG Vent. Rate : 069 BPM Atrial Rate : 069 BPM P-R Int : 208 ms QRS Dur : 110 ms QT Int : 440 ms P-R-T Axes : 043 -29 036 degrees QTc Int : 471 ms Poor data quality, interpretation may be adversely affected Normal sinus rhythm Poor R wave progression, consider anterior NM vs. lead placement vs. LVH Abnormal ECG When compared with ECG of 27-MAY-2022 01:07, No significant change was found Confirmed by Scott Madrid ([id number]) on 03/03/2023 4:47:33 PM Referred By: REFERRED SELF Confirmed By:Scott Madrid
--- NOTE | 2023-03-03 17:17 | Billing Data ---
Date of Service March 03, 2023 Coding Level of Care Code 01581 SUB INP/OBS CARE
--- NOTE | 2023-03-03 17:33 | Nuclear Medicine Report ---
NUCLEAR MEDICINE HEPATOBILIARY SCAN CLINICAL HISTORY: Chest pain. Cholelithiasis. Bladder sludge. Evaluate for acute cholecystitis. COMPARISON: Right upper quadrant ultrasound February 17, 2013. TECHNIQUE: 5 mCi of technetium 99m Choletec IV was injected at 4:28 PM on March 03, 2023. Immediate ly following injection, imaging of the abdomen was carried out for 60 minutes in the anterior project ion. FINDINGS: Hepatic uptake of radiotracer is prompt and homogeneous. Activity is identified within the gallbladder and common bile duct at 20 minutes. Delayed visualization of small bowel activity was no mirlande. IMPRESSION: 1. No evidence for acute cholecystitis. 2. Mildly delayed visualization of small bowel activity. This is a nonspecific finding which could be due to spasm, sphincter dysfunction or partial common bile duct obstruction. This could be correlate d with liver function tests. ACT 112: Negative or not required by law. Electronically signed by: Kody Pierce M.D. 03/03/2023 5:32 PM
[2023-03-03] MEDS: carvediloL 12.5 MG TAB PO SCH (18:08)
--- NOTE | 2023-03-03 20:05 | Billing Data ---
Date of Service March 03, 2023 Coding Level of Care Code 77937 INT INP/OBS CARE
[2023-03-03] MEDS ORDERED: ROSUVASTATIN CALCIUM 20 MG TAB PO SCH (21:00)
[2023-03-03] MEDS ORDERED: EZETIMIBE 10 MG TABLET PO SCH (21:00)
[2023-03-03] MEDS ORDERED: AMIODARONE 200 MG TAB PO SCH (21:00)
[2023-03-03] MEDS: MoRPHine SULFATE 2 MG/ML CARP IV PRN (21:05)
[2023-03-03 22:04] LABS: Partial Thromboplastin Time 84.3 Seconds (21.0-31.0)
[2023-03-04 04:53] LABS: Basophils # (auto) 0.06 K/uL (0-0.2); Basophils % (auto) 1.1 %; Eosinophils # (auto) 0.28 K/uL (0-0.50); Hematocrit (blood only) 40.8 % (42.0-52.0); Hemoglobin 13.7 g/dl (14.0-18.0); Immature Granulocytes # (auto) 0.02 K/uL (0.01-0.20); Immature Granulocytes % (auto) 0.4 %; Lymphocytes # (auto) 1.44 K/uL (1.2-3.4); Lymphocytes % (auto) 25.5 %; Mean Corpuscular Hgb Conc 33.6 g/dL (32.0-36.0); Mean Corpuscular Volume 92.3 fL (80.0-100.0); Mean Platelet Volume 9.1 fL (9.4-12.4); Monocytes # (auto) 0.77 K/uL (0.11-0.59); Monocytes % (auto) 13.7 %; Neutrophils # (auto) 3.07 K/uL (1.40-6.50); Neutrophils % (auto) 54.3 %; Platelet Count 144 K/uL (130-400); Red Blood Count 4.42 M/uL (4.70-6.10); White Blood Count 5.64 K/ul (4.8-10.8)
[2023-03-04 05:06] LABS: Albumin Globulin Ratio 1.5 (0.9-2); Albumin Level 3.5 gm/dl (3.4-5.0); BUN Creatinine Ratio 9.8 (10-20); Bilirubin,Total 0.7 mg/dl (0.2-1.0); Calcium 8.3 mg/dl (8.6-10.3); Creatinine Clr Calc Pharmacy 54.2 ml/min; Est GFR (African American) 70.2 ml/min; Est GFR (Non-African American) 60.5 ml/min; Globulin 2.4 gm/dl (2.5-4.0); Total Protein 5.9 gm/dl (6.0-8.3)
[2023-03-04 05:34] LABS: Partial Thromboplastin Ratio 4.6
[2023-03-04 06:12] LABS: Partial Thromboplastin Time 131.1 Seconds (21.0-31.0)
[2023-03-04] MEDS: LOSARTAN POTASSIUM 50 MG TAB PO SCH (08:36)
[2023-03-04] MEDS: MoRPHine SULFATE 2 MG/ML CARP IV PRN (08:36)
[2023-03-04] MEDS: ASCORBIC ACID 500 MG TAB PO SCH (08:37)
[2023-03-04] MEDS: amLODIPine BESYLATE 5 MG TAB PO SCH (08:37)
[2023-03-04] MEDS: carvediloL 12.5 MG TAB PO SCH (08:37)
--- NOTE | 2023-03-04 09:01 | Discharge Summary ---
Date of Service March 04, 2023 Admission HPI Per Admitting Provider Omid is a 67 year old male w/ PmHx CAD s/p CABG 2002 and re-do in 2018, A fib, PVCs, CVA s/p medtronic LINQ ILR, Dyslipidemia, hypertension, PAD, vertebral artery occlusion, restrictive lung disease, anxiety/depression, gout coming in to the emergency department for worsening abdominal and chest pain. Patient states that for months now he's had right upper abdominal and epigastric pain present everyday, most of the time. The pain does not worsen with food or exertion. He has had nausea with this and it has worsened over the past few days although no vomiting. More recent pain involving the chest is what brought him to seek out emergency medical evaluation today. He saw Dr. Pearson last week for the abdominal pain and it was determined that they should proceed with a cholecystectomy. He states that he has a history of PVCs that have increased in frequency in recent months for which he follows with Dr. Leroy and Mattie. The PVCs may cause him to get dizzy and have palpitations at times. He was incre ased from 200mg amiodarone to 300mg amiodarone and has a loop recorder device implanted. He had gone to cardiology clinic on the for which he was medically optimized from a cardiac standpoint for potential gallbladder surgery. At that time they were not able to interrogate the loop recorder and was instructed to go home and activate the loop recorder. Patient denies fevers, chills, diarrhea, constipation, urinary complaints. In the ED CBC unremarkable, PT 12.5, INR 1.2, Creat 1.47, eGFR 48.3, T bili 0.9, AST 56, ALT 60, troponin 6.8. Chest XR without any acute cardiopulmonary findings. Admission Exam Per Admitting Provider Constitutional: WD/WN, vitals as above Eyes: PERRL, conjunctivae normal, anicteric sclerae ENMT: external ear and nose normal, oropharynx normal Respiratory: normal respiratory effort, lungs clear to auscultation Cardiovascular: Rate/Rhythm: + irregularly irregular Heart Sounds: normal S1 and normal S2 No peripheral edema. Gastrointestinal (Abdomen): normal bowel sounds, soft, nontender, no hepatosplenomegaly Skin: no rashes, warm and dry Psychiatric: A+Ox3, euthymic affect Principal Diagnosis Biliary colic Discharge Exam Constitutional: WD/WN, vitals as above Eyes: PERRL, conjunctivae normal, anicteric sclerae ENMT: external ear and nose normal, oropharynx normal Respiratory: normal respiratory effort, lungs clear to auscultation Cardiovascular: Rate/Rhythm: + regular rhythm Heart Sounds: normal S1 and normal S2 Gastrointestinal (Abdomen): soft, nondistended, +diffusely tender greatest in epigastrium without reboun d/guarding, no hepatosplenomegaly Skin: no rashes, warm and dry Psychiatric: A+Ox3, euthymic affect Discharge Data Allergies Allergy/AdvReac Type Severity Reaction Status Date / Time codeine AdvReac Intermediate GI SYMPTOMS Verified 03/02/23 23:45 oxycodone AdvReac Intermediate Nausea Verified 03/02/23 23:45 sulfamethoxazole AdvReac Intermediate Nausea Verified 03/02/23 23:45 [From Bactrim] trimethoprim [From Bactrim] AdvReac Intermediate Nausea Verified 03/02/23 23:45 valacyclovir AdvReac Intermediate severe Verified 03/02/23 23:45 back pains Consultations 03/03/23 02:44 Consult Cardiology Routine Consult General Surgery Routine Hospital Course (1) Chest pain: 67 year old male w/ complex cardiac history, restrictive lung disease, gout, anxiety/depression admitted for chest and abdominal pain. Acute abdominal pain 2/2 biliary colic/cholelithiasis -US of liver 02/17 showed cholelithiasis and biliary sludge, hepatic steatosis w/o cholecystitis. -LFTs downtrending during stay -Suggestive of hepatobiliary process, original plan for elective cholecystectomy in 03/2023 -HIDA scan negative- pt discharged with plan to get elective cholecystectomy as above per general surgery -Pain control- discharged with Vicodin for pain control Acute chest pain -extensive past cardiac history including bypass in 2002 and 2017, A fib, PVCs, vertebral artery occlusion. -EKG w/ NSR, no acute ST changes or changes compared to prior EKG. -Troponin negative x2 -Echo from 10/12/22 EF 55-60%, no regional wall motion abnormalities. -Cardiology consulted- clearance given for OR, chest pain ruled to be referred 2/2 biliary disease Paroxysmal atrial fibrillation -Sinus, rate-controlled during stay -On amiodarone, dose recently increased to 300 mg in early 01/2023 -Resume Xarelto on discharge (2) Midepigastric pain: (3) Symptomatic cholelithiasis: (4) History of coronary artery bypass graft: (5) PAD (peripheral artery disease): (6) Frequent PVCs: (7) Depression: (8) Anxiety: (9) Gout: (10) Restrictive lung disease: (11) Status post placement of implantable loop recorder: (12) H/O: stroke: (13) HTN (hypertension): (14) CAD (coronary artery disease): (15) Vertebral artery occlusion: Total Time Total Time Spent Total Time Spent (In Minutes): <30 Discharge Plan Discharge Items Patient Disposition: Home - Self-Care Reason For Visit: CHEST PAIN, ABD PAIN Discharge Diagnosis: Biliary colic Activity: Resume your previous activity Non-emergency contact: Primary Care Provider Call non-emergency contact if: your symptoms worsen Follow-up/Referrals: Faizan Negrete DO [Primary Care Provider] - 03/11/23 2:00 pm Diet: Heart Healthy and Low Fat Addtl Attending Provider Instructions: You were admitted to the hospital for chest and abdominal pain. Your chest pain was evaluated to be not related to the heart and instead to gallbladder disease. The HIDA scan was negative, so general surgery feels it is appropriate to perform the surgery in March as originally scheduled. In the interim, we advise avoiding fatty foods. Make sure to hydrate adequately- at least 60 oz daily. A discharge summary will be sent to your primary care physician to ensure continuity of care. Please bring this discharge summary with you to your next office appointment so that your provider can review it at that time. Follow-up appointments: - Make a follow-up appointment with your PCP within the next week. It is very important that you follow up with them shortly after discharge from the hospital. - Keep all your follow-up appointments as already scheduled. If you cannot make an appointment, notify your provider. Medications: Your medication list has been reviewed and reconciled upon discharge to ensure accuracy and continuity of care. An updated list of all your medications is included with your hospital discharge paperwork. Please review this list closely, and make note of any changes. -We sent a new medication called Vicodin to the pharmacy. This will be useful for pain control. Please take it on an as needed basis. You will have 15 tabs for pain relief until 5/9. I recommend taking up to 2 and no more than 3 per day. Take your medications as instructed; do not skip a dose of your medicines. Make sure all of your doctors know every medicine you are taking (including achb-uzc-wfqwnby medicines, vitamins, and supplements). Call your primary care provider before taking any new medicines (including mdhw-rwi-isapnic medicines, vitamins, and supplements), because some of these may interact with your current medications, or may make your symptoms worse. Tell your primary care provider if you cannot afford your medications. CONTACT YOUR PRIMARY CARE PROVIDER if you experience any of the following: -Abdominal pain -Nausea/vomiting -Difficulty eating/drinking -Chest pain -Palpitations -Fever -Difficulty following your treatment plan, or difficulty taking medications CALL 911 OR GO TO THE EMERGENCY DEPARTMENT if you experience any of the following: - Sudden, severe abdominal pain or nausea/vomiting - Severe chest pain, or chest pain that radiates (moves) to your jaw or arm - Sudden, severe shortness of breath or difficulty breathing Thank you for allowing us to participate in your care Pending Studies at Discharge: No Stand-Alone Forms: My [facility] Medications and DC Order Prescriptions: New hydrocodone-acetaminophen 5-300 mg tablet 1 tab PO TID PRN (Reason: pain) Qty: 15 0RF Rx Instructions: contains acetaminophen, do not exceed 2000mg of acetaminophen in 24hrs Continued prednisone 10 mg tablet 10 mg PO TID PRN (Reason: gout flare ups) Qty: 9 0RF carvedilol 12.5 mg tablet 12.5 mg PO BID Qty: 180 3RF Rx Instructions: must administer with a meal/food losartan 50 mg tablet 50 mg PO BID Qty: 180 3RF rosuvastatin [Crestor] 40 mg tablet 40 mg PO HS Qty: 90 3RF Xarelto 2.5 mg tablet 2.5 mg PO BID Qty: 180 3RF nitroglycerin [Nitrostat] 0.4 mg tablet, sublingual 0.4 mg sublingual UD PRN (Reason: Angina) Qty: 30 1RF triamcinolone acetonide 0.1 % cream 1 applic topical DAILY PRN (Reason: scotal itch) vitamin E (dl, acetate) 400 unit capsule 180 mg PO QAM lutein 20 mg tablet 20 mg PO QAM Rx Instructions: give with meal/snack multivitamin Tablet 1 tab PO QAM ascorbic acid (vitamin C) [Vitamin C] 1,000 mg Tablet 1,000 mg PO QAM cyanocobalamin (vitamin B-12) [Vitamin B-12] 500 mcg Tablet 500 mcg PO QAM omega 3-sqx-bhb-fish oil [Fish Oil] 1,200 (144-216) mg Capsule 1 cap PO QPM garlic 300 mg Capsule 300 mg PO PM amiodarone 200 mg tablet 300 mg PO QPM allopurinol 100 mg tablet 100 mg PO QAM Rx Instructions: take 1 tablet by mouth once daily aspirin 81 mg tablet,delayed release (DR/EC) 81 mg PO BID amlodipine 10 mg tablet 10 mg PO QAM ezetimibe [Zetia] 10 mg tablet 10 mg PO HS Saccharomyces boulardii [Daily Probiotic (S. boulardii)] 250 mg capsule 250 mg PO DAILY Discharge Orders: Discharge Order (Routine); Ordered 03/04/23 Ordered By: Ruddy Short Admission Data Admit Date/Time: 03/03/23 01:50 Attending Provider: James Marie Admit Provider: Jenaro Birch Primary Care Provider: Faizan Negrete Other Providers: Bubba Trujillo ; Wade Solis ; Scott Madrid ; Micheal Worley ; Dimitri Flores ; Yaakov Vizcarra Jr ; Stan Phelps ; Kay Burgos ; Letty Santizo ; Rustam Orozco ; Nelson De La Cruz ; Alex Benavides ; Vita Jones ; Afshan Sheth ; Paolo Mario ; Eric Parkinson ; Micheal Scott V. ; Ginger Velasquez ; Killian Walton Other Interventions: Discharge Summary Assessment (RN) Last Done: 03/04/23 11:07 Supervising Physician Co-Signing Physician Notes Chart reviewed, case d/w surgery, case d/w dr short. due to extraneous circumstances, patient had physically left the building prior to my being able to see him. agree with above. Resident Activity Tracking Resident Involvement: Resident Care Provided Care Provided: Adult Hospital Medicine
--- NOTE | 2023-03-04 09:45 | Surgery Progress Note ---
Date of Service March 04, 2023 Assessment & Plan (1) Symptomatic cholelithiasis: Plan: Patient reports ongoing belly pain...constant in nature and dull. no worse with a diet HIDA scan obtained was negative for acute vishnu WBC and LFTs within normal limits...Vitals are stable. no evidence of acute cholecystitis Will allow patient to trial a diet and likely proceed with previous plans for elective lap vishnu on 03/16 Recommend low fat/bland diet until surgery Admission and Anticipated Discharge Date Admission Date: March 03, 2023 Supervising Physician Co-Signing Physician Notes I personally saw and evaluated the patient with Tracey Vences PA-C and agree with the assessment and plan. 67-year-old male with upper abdominal pain and known cholelithiasis HIDA images and results personally viewed by myself, no evidence for acute cholecystitis He is tolerating diet without issue He be discharged from a surgical standpoint and follow-up on March 16 for his scheduled cholecystectomy Subjective Patient reports his chest pain is improved although still having some PVCs. Remains with a dull/constant abdominal pain. Says not worse with food and is always present. Believes he will need something for pain control to take for his symptoms until scheduled surgery if we are not planning on doing it while here. Physical Exam Physical Exam: awake/alert, no distress Respiratory: normal respiratory effort Gastrointestinal (Abdomen): Inspection/Auscultation: abdomen not distended Percussion/Palpation: + abdomen tender (discomfort to palpation in RUQ/epigastric region) and abdomen soft Results & Data Vital Signs (Past 12 Hours) Vital Signs Temp Pulse Pulse Resp BP Pulse Ox O2 Del Method 03/04/23 07:59 36.8 C 56 L 12 129/74 93 Room Air 03/03/23 22:32 57 L 03/04/23 04:16 36.7 C 58 L 18 126/71 95 Room Air 03/04/23 00:07 36.8 C 57 L 18 114/63 93 Room Air PG Care Time/CCT Total # of Minutes Spent Total Time Spent with Patient: Total time spent is greater than 50% in coordination of care (as documented) at patient's floor/unit and/or counseling patient: Coding Level of Care Code 05162 SUB INP/OBS CARE 12/02MIN Diagnoses Symptomatic cholelithiasis K80.20
[2023-03-04 13:36] LABS: Partial Thromboplastin Ratio 1.4
[2023-03-04 13:46] LABS: Partial Thromboplastin Time 40.2 Seconds (21.0-31.0)
--- NOTE | 2023-03-04 15:06 | Billing Data ---
Date of Service March 04, 2023 Coding Level of Care Code 76600 IN/OBS DISCH 30 MIN/LESS
== END 2023-03-04 12:35 | disposition home or self-care (01) ==
LOC: ED 22:47 → 2N 22:47 → SUATTDRO 03-03 01:50 → 2N 03-03 02:47
DX: K80.00 Calculus of gallbladder with acute cholecystitis without obstruction; I25.10 Atherosclerotic heart disease of native coronary artery without angina pectoris; Z79.899 Other long term (current) drug therapy; Z88.8 Allergy status to other drugs, medicaments and biological substances; Z88.2 Allergy status to sulfonamides; I25.5 Ischemic cardiomyopathy; R07.2 Precordial pain; Z79.01 Long term (current) use of anticoagulants; R06.00 Dyspnea, unspecified; I48.0 Paroxysmal atrial fibrillation; I10 Essential (primary) hypertension; Z79.82 Long term (current) use of aspirin; I49.3 Ventricular premature depolarization; Z88.1 Allergy status to other antibiotic agents; Z88.5 Allergy status to narcotic agent; I73.9 Peripheral vascular disease, unspecified

== ENCOUNTER 2023-07-21 08:57 | Inpatient (IN) ==
[2023-07-21] MEDS ORDERED: ASPIRIN 81 MG CHEW PO STA (09:21)
[2023-07-21 09:41] LABS: Basophils # (auto) 0.04 K/uL (0.00-0.20); Basophils % (auto) 0.5 %; Eosinophils # (auto) 0.31 K/uL (0.00-0.50); Eosinophils % (auto) 3.8 %; Hematocrit (blood only) 40.8 % (42.0-52.0); Hemoglobin 13.9 g/dl (14.0-18.0); Immature Granulocytes # (auto) 0.03 K/uL (0.01-0.20); Immature Granulocytes % (auto) 0.4 %; Lymphocytes # (auto) 1.58 K/uL (1.20-3.40); Lymphocytes % (auto) 19.4 %; Mean Corpuscular Hemoglobin 30.7 pg (25.0-34.0); Mean Corpuscular Hgb Conc 34.1 g/dL (32.0-36.0); Mean Corpuscular Volume 90.1 fL (80.0-100.0); Monocytes # (auto) 0.96 K/uL (0.11-0.59); Monocytes % (auto) 11.8 %; Neutrophils # (auto) 5.21 K/uL (1.40-6.50); Neutrophils % (auto) 64.1 %; Platelet Count 164 K/uL (130-400); RDW Coefficient of Variation 11.9 % (11.5-14.5); RDW Standard Deviation 39.2 fL (36.4-46.3); Red Blood Count 4.53 M/uL (4.70-6.10); White Blood Count 8.13 K/ul (4.8-10.8)
--- NOTE | 2023-07-21 09:49 | Emergency Department Note ---
Impression & Plan Bradycardia, Chest pain ED Provider Note NAME: NAKIA CURRY AGE: 67 SEX: M : 1955 ARRIVES VIA: Walk-In INFORMANT: Patient, ED PROVIDER(S): Cinthya Mason MD CHIEF COMPLAINT: Bradycardia HPI: This is a 67-year-old male with extensive medical history presenting for chest pain and bradycardia. Patient states that he was here 3 days ago for weakness, dizziness and chest pain. He was requested to be admitted but he declined. He states that since then he has noted feeling out of it, per sistently dizzy spells with ambulation. He has pain in his right chest, center of his chest and into his neck. He also notes bradycardia into the 30s and low 40s. He has never been this low before. 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 He states he scheduled for a cardiac cath in the next 1-2 weeks. He has not had any episodes of syncope at this time. ROS: See above HPI for pertinent positives & negatives. A total of 10 systems reviewed and were otherwise negative. PAST MEDICAL HISTORY: See Below PAST SURGICAL HISTORY: See Below FAMILY HISTORY: See Below SOCIAL HISTORY: See Below HOME MEDICATIONS: See Below ALLERGIES: See Below VITALS: See Below PHYSICAL EXAMINATION: General: resting comfortably in no acute distress Head: Normocephalic and atraumatic Eyes: Normal inspection, extraocular muscles intact, no conjunctival pallor Ear, nose, throat: Normal external exam Neck: Normal range of motion Respiratory: Patient is in no respiratory distress, lungs clear to auscultation bilaterally Cardiovascular: Bradycardic rate, sternotomy scar noted GI: soft, nontender, no guarding or rebound Extremities: pulses intact with good cap refills, no LE pitting edema or calf tenderness Neuro: The patient awake and alert, appropriately conversive,no focal decifits Skin: Warm, dry, and intact MEDICAL DECISION MAKING: This is a 67-year-old male with history of extensive coronary history with CAD, bypass, vertebral artery occlusion, ischemic cardiomyopathy, ischemic stroke, PVCs, restrictive lung disease, loop recorder placement presenting for chest pain and bradycardia. Patient is bradycardic into the 30s, EKG reveals a likely junctional rhythm with a rate of 39, no ST segment elevation consistent with STEMI, nonspecific T wave changes in the inferior leads. We have patient aspirin at this time. Patient placed on monitor and pads. Patient's lab work is reassuring without significant abnormalities, troponin is negative at this time. Patient remained without hypotension or syncope. Due to persistent chest pain, bradycardia will admit for chest pain rule out. He is scheduled for cardiac cath which may need to be moved up. Discussed with Dr. Madrid, cardiology who recommends admission, no urgent pacemaker needed at this time. Patient mid to hospitalist service Triage Nursing notes reviewed. Prior medical records reviewed Vital Signs: reviewed and remarkable for no significant abnormalities Differential diagnosis: ER treatment provided: See below Diagnostics interpreted by me: ECG: EKG read by me showing a junctional bradycardia, left axis deviation, no ST segment elevation consistent with STEMI, T wave abnormalities in inferior leads of unclear etiology Cardiac Monitoring: An order was placed for continuous cardiac monitoring. The monitor shows a rate of 35 with sinus bradycardia rhythm. Laboratory studies: As stated above and show below. Imaging studies: See below. Radiographic imaging was reviewed by myself Consultation(s): Dr. Madrid, cardiology Past Med/Surg History Medical History Abdominal pain Acute lower gastrointestinal bleeding resolved per pt Aneurysm of right internal iliac artery per chart review, occlusion of L internal iliac and previously occluded R vertebral artery; follows with Anxiety and depression no meds CAD (coronary artery disease) s/p CABG x 4 in 2002 and 're-do x 3' in 2018. pt follows closely with cardiology Chronic dysfunction of both eustachian tubes Chronic stable angina follows closely with Cardio; 'aggressive RF modification' including antiplatelet therapy as well as NTG Diverticulitis resolved Gout H/O: stroke Nov 2020 > no residual effects, follows with [facility] History of asthma A CHILD History of recent hospitalization [facility] 02/28/23-03/04/23. Presented to ED with chest and abdominal pain. Dx: biliary colic; surgery planned HTN (hypertension) Hyperlipidemia Implantable loop recorder present placed Sep 2021 at [facility] ; 'LINQ'; frequent PVCs; follows with EP Ischemic cardiomyopathy follows closely with Cardio Macular degeneration of left eye Myocardial Infarction 1999 Ocular migraine PAD (peripheral artery disease) per chart review, occlusion of L internal iliac and previously occluded R vertebral artery; follows with and Dr. Phelps. On Xarelto as well as antiplatelet therapy PVC (premature ventricular contraction) follows with Dr. Flores Restrictive lung disease hx of as child per pt Subjective tinnitus of both ears Vertebral artery occlusion On Xarelto as well as antiplatelet therapy. Per Neuro note, " history of 2 tiny subcortical left hemispheric ischemic infarcts without any significant residual neurologic deficits other than perhaps some mild subjective clumsiness of the right hand. Patient has an incidental chronic occlusion of the right vertebral artery" Surgical History Dupuytren's contracture of left hand little finger surgery History of cardiac cath 1999 AND 2018 History of colonoscopy with polypectomy History of coronary artery bypass graft X 4 VESSELS IN 1999 X 3 VESSELS IN 2018 History of tonsillectomy Hx laparoscopic cholecystectomy (03/16/23) Laparoscopic Cholecystectomy(Not Applicable) - Lewis Pearson DO Family History Mother Cardiac disorder Breast cancer Family history of diabetes mellitus Hypertension Unknown Coronary heart disease Hypertension Father Cardiac disorder Myocardial infarction Heart disease Hypertension Denies family history of Ovarian cancer Prostate cancer Colorectal cancer Social History Smoking Status: Never smoker Second Hand Exposure: No; Do You Dip or Chew Tobacco: No; Hx Alcohol Use: No Hx Substance Use: No Preferred Language: Croatian Communication Ability: Effective Visual Impairment: Limited Hearing Ability: Normal Valve Repairer Required: No Beliefs That Will Affect Care: Spiritual marital status: Current Living Situation: Spouse Current Living Situation Comment: with Spouse current occupational status: retired 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 How many Children do You have: 1 Other Information That Helps Us Care for You: No Feels Safe at Home: Yes Safety Concerns: Feels Safe At This Time Childhood Exposure to Second-Hand Smoke: No Diet: regular caffeine: No during the past year weight has: remained stable Dental Care, Regularly: Yes Physical Activity Frequency: Daily Physical Activity Frequency Comment: 45 mins treadmill Seatbelt Use: always Sunscreen Use: Yes Assistive Devices: Glasses Allergies Allergies Allergy/AdvReac Type Severity Reaction Status Date / Time hydrocodone [From Vicodin] AdvReac Severe CONSTIPATION Verified 07/18/23 23:16 SEVERE codeine AdvReac Intermediate GI SYMPTOMS Verified 07/18/23 23:16 oxycodone AdvReac Intermediate Nausea Verified 07/18/23 23:16 sulfamethoxazole AdvReac Intermediate Nausea Verified 07/18/23 23:16 [From Bactrim] trimethoprim [From Bactrim] AdvReac Intermediate Nausea Verified 07/18/23 23:16 valacyclovir AdvReac Intermediate severe Verified 07/18/23 23:16 back pains Home Meds Home Medications Medication Instructions Recorded Confirmed multivitamin 1 tab PO QAM 04/24/19 07/21/23 triamcinolone acetonide 0.1 % 1 applic topical DAILY PRN scotal 02/11/21 topical cream itch lutein 20 mg tablet 20 mg PO QAM 06/11/21 07/21/23 omega 1-ydp-mey-fish oil 1,200 mg 1 cap PO QPM 05/26/22 07/21/23 (144 mg-216 mg) capsule (Fish Oil) amlodipine 10 mg tablet 10 mg PO QAM 03/02/23 07/21/23 aspirin 81 mg tablet,delayed 81 mg PO BID 03/02/23 07/21/23 release amiodarone 200 mg tablet See Rx Instructions .Route .COMPLEX 04/12/23 07/21/23 magnesium 250 mg tablet 250 mg PO QAM 04/12/23 07/21/23 carvedilol 12.5 mg tablet 12.5 mg PO BID 05/27/23 07/21/23 ascorbic acid (vitamin C) 500 mg 500 mg PO QAM 07/18/23 07/21/23 tablet (Vitamin C) Previous Rx's Medication Instructions Recorded nitroglycerin 0.4 mg sublingual 0.4 mg sublingual UD PRN Angina 07/29/20 tablet (Nitrostat) #30 tabs rivaroxaban 2.5 mg tablet (Xarelto) 2.5 mg PO BID #180 tabs 08/27/22 rosuvastatin 40 mg tablet (Crestor) 40 mg PO HS #90 tabs 08/27/22 losartan 50 mg tablet 50 mg PO BID #180 tabs 02/15/23 ezetimibe 10 mg tablet (Zetia) 10 mg PO HS #90 tabs 05/20/23 allopurinol 100 mg tablet 100 mg PO QAM #90 tabs 07/16/23 Results & Data (ED) Vital Signs Vital Signs - 24 hr 07/21/23 08:59 07/21/23 09:15 07/21/23 09:22 Temperature 36.4 C L Temperature Source Temporal Artery Scan Pulse Rate 41 L Pulse Rate [Apical] 40 L Pulse Rate from SpO2 Sensor Pulse Rhythm [Apical] Pulse Strength [Apical] Respiratory Rate 16 Respiratory Effort / Characteristics Respiratory Depth Respiratory Pattern Blood Pressure 122/68 Blood Pressure [Right Arm] 131/68 Blood Pressure Mean 86 Blood Pressure Mean [Right Arm] 89 Blood Pressure Position [Right Arm] Pulse Oximetry 94 96 96 Oxygen Delivery Method Room Air Room Air Room Air Sepsis Recent Fever Within 48 Hours No Sepsis New/Unexplained Change in Mental Status No Sepsis Action Taken by Nursing No Action Required Oxygen Flow Rate - Titration 0 07/21/23 09:38 07/21/23 09:14 07/21/23 09:19 Temperature Temperature Source Pulse Rate 39 L 57 L Pulse Rate [Apical] Pulse Rate from SpO2 Sensor 41 L Pulse Rhythm [Apical] Pulse Strength [Apical] Respiratory Rate 19 Respiratory Effort / Characteristics Respiratory Depth Respiratory Pattern Blood Pressure 131/68 Blood Pressure [Right Arm] Blood Pressure Mean 93 Blood Pressure Mean [Right Arm] Blood Pressure Position [Right Arm] Pulse Oximetry 95 Oxygen Delivery Method Sepsis Recent Fever Within 48 Hours Sepsis New/Unexplained Change in Mental Status Sepsis Action Taken by Nursing Oxygen Flow Rate - Titration 07/21/23 09:19 07/21/23 09:20 07/21/23 09:30 Temperature Temperature Source Pulse Rate 38 L 38 L Pulse Rate [Apical] Pulse Rate from SpO2 Sensor 39 L 38 L Pulse Rhythm [Apical] Pulse Strength [Apical] Respiratory Rate 22 20 Respiratory Effort / Characteristics Respiratory Depth Respiratory Pattern Blood Pressure 112/60 Blood Pressure [Right Arm] Blood Pressure Mean 74 Blood Pressure Mean [Right Arm] Blood Pressure Position [Right Arm] Pulse Oximetry 97 96 Oxygen Delivery Method Sepsis Recent Fever Within 48 Hours Sepsis New/Unexplained Change in Mental Status Sepsis Action Taken by Nursing Oxygen Flow Rate - Titration 07/21/23 09:30 07/21/23 09:40 07/21/23 09:45 Temperature Temperature Source Pulse Rate 38 L 54 L 54 L Pulse Rate [Apical] Pulse Rate from SpO2 Sensor 39 L 55 L 55 L Pulse Rhythm [Apical] Pulse Strength [Apical] Respiratory Rate 18 15 16 Respiratory Effort / Characteristics Respiratory Depth Respiratory Pattern Blood Pressure Blood Pressure [Right Arm] Blood Pressure Mean Blood Pressure Mean [Right Arm] Blood Pressure Position [Right Arm] Pulse Oximetry 95 95 96 Oxygen Delivery Method Sepsis Recent Fever Within 48 Hours Sepsis New/Unexplained Change in Mental Status Sepsis Action Taken by Nursing Oxygen Flow Rate - Titration 07/21/23 09:45 07/21/23 09:50 07/21/23 10:00 Temperature Temperature Source Pulse Rate 57 L Pulse Rate [Apical] Pulse Rate from SpO2 Sensor 57 L Pulse Rhythm [Apical] Pulse Strength [Apical] Respiratory Rate 15 Respiratory Effort / Characteristics Respiratory Depth Respiratory Pattern Blood Pressure 127/72 128/71 Blood Pressure [Right Arm] Blood Pressure Mean 92 79 Blood Pressure Mean [Right Arm] Blood Pressure Position [Right Arm] Pulse Oximetry 95 Oxygen Delivery Method Sepsis Recent Fever Within 48 Hours Sepsis New/Unexplained Change in Mental Status Sepsis Action Taken by Nursing Oxygen Flow Rate - Titration 07/21/23 10:00 07/21/23 10:10 07/21/23 10:15 Temperature Temperature Source Pulse Rate 53 L 43 L 53 L Pulse Rate [Apical] Pulse Rate from SpO2 Sensor 55 L 55 L 53 L Pulse Rhythm [Apical] Pulse Strength [Apical] Respiratory Rate 16 21 16 Respiratory Effort / Characteristics Respiratory Depth Respiratory Pattern Blood Pressure Blood Pressure [Right Arm] Blood Pressure Mean Blood Pressure Mean [Right Arm] Blood Pressure Position [Right Arm] Pulse Oximetry 98 96 93 Oxygen Delivery Method Sepsis Recent Fever Within 48 Hours Sepsis New/Unexplained Change in Mental Status Sepsis Action Taken by Nursing Oxygen Flow Rate - Titration 07/21/23 10:15 07/21/23 10:20 07/21/23 10:30 Temperature Temperature Source Pulse Rate 37 L Pulse Rate [Apical] Pulse Rate from SpO2 Sensor 55 L Pulse Rhythm [Apical] Pulse Strength [Apical] Respiratory Rate 19 Respiratory Effort / Characteristics Respiratory Depth Respiratory Pattern Blood Pressure 130/70 132/74 Blood Pressure [Right Arm] Blood Pressure Mean 88 97 Blood Pressure Mean [Right Arm] Blood Pressure Position [Right Arm] Pulse Oximetry 95 Oxygen Delivery Method Sepsis Recent Fever Within 48 Hours Sepsis New/Unexplained Change in Mental Status Sepsis Action Taken by Nursing Oxygen Flow Rate - Titration 07/21/23 10:30 07/21/23 10:40 07/21/23 10:45 Temperature Temperature Source Pulse Rate 53 L 53 L Pulse Rate [Apical] Pulse Rate from SpO2 Sensor 54 L 54 L Pulse Rhythm [Apical] Pulse Strength [Apical] Respiratory Rate 14 17 Respiratory Effort / Characteristics Respiratory Depth Respiratory Pattern Blood Pressure 127/71 Blood Pressure [Right Arm] Blood Pressure Mean 104 Blood Pressure Mean [Right Arm] Blood Pressure Position [Right Arm] Pulse Oximetry 95 94 Oxygen Delivery Method Sepsis Recent Fever Within 48 Hours Sepsis New/Unexplained Change in Mental Status Sepsis Action Taken by Nursing Oxygen Flow Rate - Titration 07/21/23 10:45 07/21/23 10:50 07/21/23 11:00 Temperature Temperature Source Pulse Rate 55 L 54 L Pulse Rate [Apical] Pulse Rate from SpO2 Sensor 55 L 53 L Pulse Rhythm [Apical] Pulse Strength [Apical] Respiratory Rate 15 21 Respiratory Effort / Characteristics Respiratory Depth Respiratory Pattern Blood Pressure 144/75 H Blood Pressure [Right Arm] Blood Pressure Mean 88 Blood Pressure Mean [Right Arm] Blood Pressure Position [Right Arm] Pulse Oximetry 95 96 Oxygen Delivery Method Sepsis Recent Fever Within 48 Hours Sepsis New/Unexplained Change in Mental Status Sepsis Action Taken by Nursing Oxygen Flow Rate - Titration 07/21/23 11:00 07/21/23 11:10 07/21/23 11:16 Temperature Temperature Source Pulse Rate 55 L 56 L Pulse Rate [Apical] Pulse Rate from SpO2 Sensor 56 L 54 L Pulse Rhythm [Apical] Pulse Strength [Apical] Respiratory Rate 17 23 Respiratory Effort / Characteristics Respiratory Depth Respiratory Pattern Blood Pressure 156/79 H Blood Pressure [Right Arm] Blood Pressure Mean 103 Blood Pressure Mean [Right Arm] Blood Pressure Position [Right Arm] Pulse Oximetry 96 96 Oxygen Delivery Method Sepsis Recent Fever Within 48 Hours Sepsis New/Unexplained Change in Mental Status Sepsis Action Taken by Nursing Oxygen Flow Rate - Titration 07/21/23 11:16 07/21/23 11:23 07/21/23 11:24 Temperature Temperature Source Pulse Rate 57 L 56 L Pulse Rate [Apical] Pulse Rate from SpO2 Sensor 58 L 60 58 L Pulse Rhythm [Apical] Pulse Strength [Apical] Respiratory Rate 19 21 Respiratory Effort / Characteristics Respiratory Depth Respiratory Pattern Blood Pressure Blood Pressure [Right Arm] Blood Pressure Mean Blood Pressure Mean [Right Arm] Blood Pressure Position [Right Arm] Pulse Oximetry 95 94 96 Oxygen Delivery Method Sepsis Recent Fever Within 48 Hours Sepsis New/Unexplained Change in Mental Status Sepsis Action Taken by Nursing Oxygen Flow Rate - Titration 07/21/23 11:24 07/21/23 11:30 07/21/23 11:30 Temperature Temperature Source Pulse Rate 58 L Pulse Rate [Apical] Pulse Rate from SpO2 Sensor 58 L Pulse Rhythm [Apical] Pulse Strength [Apical] Respiratory Rate 21 Respiratory Effort / Characteristics Respiratory Depth Respiratory Pattern Blood Pressure 153/76 H 138/78 Blood Pressure [Right Arm] Blood Pressure Mean 114 89 Blood Pressure Mean [Right Arm] Blood Pressure Position [Right Arm] Pulse Oximetry 96 Oxygen Delivery Method Sepsis Recent Fever Within 48 Hours Sepsis New/Unexplained Change in Mental Status Sepsis Action Taken by Nursing Oxygen Flow Rate - Titration 07/21/23 10:51 Temperature 36.5 C Temperature Source Oral Pulse Rate Pulse Rate [Apical] 67 Pulse Rate from SpO2 Sensor Pulse Rhythm [Apical] Regular Pulse Strength [Apical] Normal Respiratory Rate 16 Respiratory Effort / Characteristics Non-Labored Spontaneous Respiratory Depth Normal Respiratory Pattern Regular Blood Pressure Blood Pressure [Right Arm] 151/75 H Blood Pressure Mean Blood Pressure Mean [Right Arm] 100 Blood Pressure Position [Right Arm] Lying Pulse Oximetry 96 Oxygen Delivery Method Room Air Sepsis Recent Fever Within 48 Hours Sepsis New/Unexplained Change in Mental Status Sepsis Action Taken by Nursing Oxygen Flow Rate - Titration Laboratory Data 07/21/23 09:14 07/21/23 09:14 Lab Results 07/21/23 07/21/23 07/21/23 Range/Units 09:14 09:14 09:14 WBC 8.13 (4.8-10.8) K/ul RBC 4.53 L (4.70-6.10) M/uL Hgb 13.9 L (14.0-18.0) g/dl Hct 40.8 L (42.0-52.0) % MCV 90.1 (80.0-100.0) fL MCH 30.7 (25.0-34.0) pg MCHC 34.1 (32.0-36.0) g/dL RDW Std Deviation 39.2 (36.4-46.3) fL RDW Coeff of Mayra 11.9 (11.5-14.5) % Plt Count 164 (130-400) K/uL MPV 10.0 (9.4-12.4) fL Immature Gran % (Auto) 0.4 % Neut % (Auto) 64.1 % Lymph % (Auto) 19.4 % Bee % (Auto) 11.8 % Eos % (Auto) 3.8 % Baso % (Auto) 0.5 % Neut # (Auto) 5.21 (1.40-6.50) K/uL Lymph # (Auto) 1.58 (1.20-3.40) K/uL Bee # (Auto) 0.96 H (0.11-0.59) K/uL Eos # (Auto) 0.31 (0.00-0.50) K/uL Baso # (Auto) 0.04 (0.00-0.20) K/uL Immature Gran # (Auto) 0.03 (0.01-0.20) K/uL PT 11.4 (9.0-12.0) Seconds INR 1.0 (0.9-1.1) APTT 35.0 H (21.0-31.0) Seconds PTT Ratio 1.2 Sodium 138 (136-145) mmol/L Potassium 3.7 (3.5-5.1) mmol/L Chloride 107 (98-107) mmol/L Carbon Dioxide 26 (21-32) mmol/L Anion Gap 5 (3-11) BUN 18 (6-23) mg/dl Creatinine 1.33 (0.6-1.4) mg/dl Est Cr Clr Drug Dosing 49.7 ml/min Est GFR ( Amer) 63.2 ml/min Est GFR (Non-Af Amer) 54.5 ml/min BUN/Creatinine Ratio 13.5 (10-20) Glucose 114 H (70-99(Fasting)) mg/dl Calcium 8.5 L (8.6-10.3) mg/dl Total Bilirubin 0.6 (0.2-1.0) mg/dl AST 76 H (13-39) U/L ALT 86 H (7-52) U/L Alkaline Phosphatase 114 H (34-104) U/L Troponin I High Sens 9.0 (0-20) pg/ml Total Protein 6.7 (6.0-8.3) gm/dl Albumin 3.8 (3.4-5.0) gm/dl Globulin 2.9 (2.5-4.0) gm/dl Albumin/Globulin Ratio 1.3 (0.9-2) Lipase 12 (11-82) U/L Administered Medications Heparin Sodium/Dextrose (Heparin Sodium/Dextrose) 25,000 units in 500 mls @ 17 mls/hr IV .Q24H SEBASTIÁN; Protocol Stop: 08/20/23 11:59 Last Admin: 07/21/23 12:52 Dose: 850 units/hr, 17 mls/hr Documented By: KV Co-signed By: GUERA Discontinued Medications Aspirin (Aspirin 81 Mg Chew) 324 mg PO NOW STA Stop: 07/21/23 09:22 Last Admin: 07/21/23 09:36 Dose: 324 mg Documented By: KV Heparin Sodium (Porcine) (Heparin Sod (Porcine) 1000 Unit/Ml) 4,000 units IV NOW ONE Stop: 07/21/23 11:56 Last Admin: 07/21/23 12:52 Dose: 4,000 units Documented By: KV Co-signed By: GUERA Imaging Data Radiologist's Impression: Chest X-Ray 07/21/23 09:21 XR chest 1V portable CLINICAL HISTORY: Chest pain, nonspecific. COMPARISON STUDY: Chest radiograph July 18, 2023. FINDINGS: There are median sternotomy wires and a loop recorder. Mild cardiomegaly is noted. There is no evidence for pulmonary edema. There is no consolidation to suggest pneumonia. Linear left basilar opacity favors atelectasis or scarring. This is unchanged. IMPRESSION: No acute cardiopulmonary findings. ACT 112: Negative or not required by law. Electronically signed by: Kody Pierce M.D. 07/21/2023 10:26 AM Discharge Plan Visit Data Chief Complaint: Bradycardia Stated Complaint: REACTION TO MEDICATION POSSIBLY ED Provider: Cinthya Mason Discharge Problem: Bradycardia, Chest pain Patient Disposition: Admitted As Inpatient Discharge Instructions Interventions: ED Discharge Assessment Last Done: 07/21/23 14:05
[2023-07-21 09:54] LABS: Albumin Globulin Ratio 1.3 (0.9-2); Albumin Level 3.8 gm/dl (3.4-5.0); BUN Creatinine Ratio 13.5 (10-20); Bilirubin,Total 0.6 mg/dl (0.2-1.0); Calcium 8.5 mg/dl (8.6-10.3); Creatinine Clr Calc Pharmacy 49.7 ml/min; Est GFR (African American) 63.2 ml/min; Est GFR (Non-African American) 54.5 ml/min; Globulin 2.9 gm/dl (2.5-4.0); Potassium 3.7 mmol/L (3.5-5.1); Total Protein 6.7 gm/dl (6.0-8.3)
--- NOTE | 2023-07-21 10:28 | XRay Report ---
XR chest 1V portable CLINICAL HISTORY: Chest pain, nonspecific. COMPARISON STUDY: Chest radiograph July 18, 2023. FINDINGS: There are median sternotomy wires and a loop recorder. Mild cardiomegaly is noted. There is no evidence for pulmonary edema. There is no consolidation to suggest pneumonia. Linear left basilar opacity favors atelectasis or scarring. This is unchanged. IMPRESSION: No acute cardiopulmonary findings. ACT 112: Negative or not required by law. Electronically signed by: Kody Pierce M.D. 07/21/2023 10:26 AM
--- NOTE | 2023-07-21 10:50 | Electrocardiogram Report ---
Test Reason : Blood Pressure : / mmHG Vent. Rate : 039 BPM Atrial Rate : 000 BPM P-R Int : 000 ms QRS Dur : 088 ms QT Int : 430 ms P-R-T Axes : 000 -38 065 degrees QTc Int : 346 ms Junctional bradycardia Left axis deviation Anteroseptal infarct (cited on or before 25-MAY-2023) Abnormal ECG When compared with ECG of 18-JUL-2023 22:35, (unconfirmed) QT has shortened Confirmed by Scott Madrid ([id number]) on 07/21/2023 10:50:22 AM Referred By: Confirmed By:Scott Madrid
--- NOTE | 2023-07-21 11:08 | History & Physical Report ---
Date of Service July 21, 2023 Assessment & Plan (1) Chest pain: Plan: Chest pain; CAD, PVCs symptomatic, history of ischemic cardiomyopathy, A-fib on anticoagulation With new quality, substernal pain. Exertional in nature with a different quality than his prior PVCs - Chest pain free at time of admitting exam Episodes lasting 3 to 5 minutes, may not be long enough in duration to elevated troponin. Has newly had episodes at rest last night. Potentially unstable ischemia, interventional cardiology consulted. Troponin trended. Hx CAD s/p CABG x4, redo CABG x3 in the past. 1999 CABG was WOOD to LAD, SVG to diagonal, SVG to LCx OM, SVG to PDA. Repeat at [facility] 2017 CODI to OM 2, SVG to diagonal, SVG to PDA. Patient previously with ischemic cardiomyopathy and reduced EF, LV systolic f unction normalized on last echo Frequent PVCs: Amiodarone for symptomatic PVCs with less than 1% burden on last loop recorder, dose was increased to 400 mg daily in the last month. Carvedilol was dose reduced Amiodarone held, carvedilol held, amlodipine continued Statin continued Also with new bradycardia, patient denies history of bradycardia/symptomatic bradycardia. He is on amiodarone/carvedilol as noted below EKG on admit: Junctional bradycardia, no ST segment changes. Rate 39. At time of hospitalist consultation on monitor rate has improved to mid 50s. Patient did not take amiodarone or carvedilol this morning Rivaroxaban temporarily converted to heparin gtt. Aspirin 81 mg p.o. twice daily continued, received aspirin full dose on admission to ER Symptomatic bradycardia Patient on increased amiodarone from 300-400 for 2 days, then went back to 300 mg dose due to feeling flushed Also on carvedilol 12.5 mg twice daily, did not take any of his medications morning of 07/21 EKG as noted above junctional in the 30s, at time of bedside assessment sinus [id number] Cardiology consulted. Additionally ischemic work-up as noted above Abnormal PFTs PFTs have been stable while on amiodarone, follows with pulmonology 1 year follow-up recommended No acute change in management, no respiratory symptoms Hypertension Losartan 50 mg p.o. twice daily continued Amlodipine 10 mg every morning continued History of vertebral artery occlusion On anticoagulation and aspirin as noted, no new strokelike deficits. No acute change in management at this time. Statin continued as noted DVT prophylaxis: Anticoagulated Disposition: PCU CODE STATUS: Full code Diet: Clears (2) Symptomatic PVCs: (3) Acute hypotension: (4) Symptomatic bradycardia: (5) Exertional angina: (6) PAD (peripheral artery disease): (7) HTN (hypertension): (8) CAD (coronary artery disease): (9) Vertebral artery occlusion: History of Present Illness Primary Care Provider: Faizan Negrete DO Anne is a 67-year-old male with past medical history of CAD, hypertension, PAD, ischemic cardiomyopathy, iliac artery thrombolic embolism, GI bleed, ischemic strokes, restrictive lung disease, first-degree AV block, symptomatic PVCs who presents with symptomatic bradycardia on carvedilol. Chart review: EKG: Junctional bradycardia, rate 39. No leukocytosis Potassium 3.7 -Troponin normal Received aspirin x1 in ER Amiodarone, carvedilol held Patient with equipment monitor phototypesetting read 06/21/2023: 3 sinus pauses longest 3 seconds at that time. Stress echo 06/17/2023: Negative for ischemia at 76% max heart rate, negative stress EKG for ischemia. EF 60-65%. No wall motion abnormalities were noted Long history of cardiac palpitations for which she takes amiodarone, dose was increased to 400 mg p.o. daily this past month then decreased due to poor tolerance/flushing Omid is seen at the bedside. He reports he is had a longstanding history of very symptomatic and bothersome PVCs which cause some pain in his chest, but more recently has had development of a squeezing substernal pain in the center of his chest which radiates to his armpit and right neck. He reports he had seen Dr. Worley as an outpatient and was scheduled for a cath next Wednesday. Unfortunately he is continued to have recurrent episodes of pain lasting 3 to 5 minutes in duration, which are brought out by exertion and resolve with rest, and which have occurred intermittently last night at rest while sleeping. He reports this sensation is different from his prior PR (history of bypass at [facility] 1999, and repeat bypass at [facility] 2018) which felt more of a burning sensation in his chest, but this is also not the same as his prior palpitations or "hollowed out feeling "as he has experienced before. Did have an episode of transient hypotension and dizziness with bradycardia earlier while in the ER. Ches tpain free at time of assessment Medical History: Reviewed Medications: Reviewed Surgical History: Reviewed Family history: Reviewed Allergies: Reviewed Social History:REviewed Code Status: Conditional Code Allergies Allergy/AdvReac Type Severity Reaction Status Date / Time hydrocodone [From Vicodin] AdvReac Severe CONSTIPATION Verified 07/18/23 23:16 SEVERE codeine AdvReac Intermediate GI SYMPTOMS Verified 07/18/23 23:16 oxycodone AdvReac Intermediate Nausea Verified 07/18/23 23:16 sulfamethoxazole AdvReac Intermediate Nausea Verified 07/18/23 23:16 [From Bactrim] trimethoprim [From Bactrim] AdvReac Intermediate Nausea Verified 07/18/23 23:16 valacyclovir AdvReac Intermediate severe Verified 07/18/23 23:16 back pains Home Medications Medication Instructions Recorded Confirmed Type multivitamin 1 tab PO QAM 04/24/19 07/21/23 History nitroglycerin 0.4 mg sublingual 0.4 mg sublingual UD PRN Angina 07/29/20 07/21/23 Rx tablet (Nitrostat) #30 tabs triamcinolone acetonide 0.1 % 1 applic topical DAILY PRN scotal 02/11/21 07/21/23 History topical cream itch lutein 20 mg tablet 20 mg PO QAM 06/11/21 07/21/23 History omega 2-wtz-pwn-fish oil 1,200 mg 1 cap PO QPM 05/26/22 07/21/23 History (144 mg-216 mg) capsule (Fish Oil) rivaroxaban 2.5 mg tablet (Xarelto) 2.5 mg PO BID #180 tabs 08/27/22 07/21/23 Rx rosuvastatin 40 mg tablet (Crestor) 40 mg PO HS #90 tabs 08/27/22 07/21/23 Rx losartan 50 mg tablet 50 mg PO BID #180 tabs 02/15/23 07/21/23 Rx amlodipine 10 mg tablet 10 mg PO QAM 03/02/23 07/21/23 History aspirin 81 mg tablet,delayed 81 mg PO BID 03/02/23 07/21/23 History release amiodarone 200 mg tablet See Rx Instructions .Route .COMPLEX 04/12/23 07/21/23 History magnesium 250 mg tablet 250 mg PO QAM 04/12/23 07/21/23 History ezetimibe 10 mg tablet (Zetia) 10 mg PO HS #90 tabs 05/20/23 07/21/23 Rx carvedilol 12.5 mg tablet 12.5 mg PO BID 05/27/23 07/21/23 History allopurinol 100 mg tablet 100 mg PO QAM #90 tabs 07/16/23 07/21/23 Rx ascorbic acid (vitamin C) 500 mg 500 mg PO QAM 07/18/23 07/21/23 History tablet (Vitamin C) Past Med/Surg History Medical History Abdominal pain Acute lower gastrointestinal bleeding resolved per pt Aneurysm of right internal iliac artery per chart review, occlusion of L internal iliac and previously occluded R vertebral artery; follows with Anxiety and depression no meds CAD (coronary artery disease) s/p CABG x 4 in 2002 and 're-do x 3' in 2018. pt follows closely with cardiology Chronic dysfunction of both eustachian tubes Chronic stable angina follows closely with Cardio; 'aggressive RF modification' including antiplatelet therapy as well as NTG Diverticulitis resolved Gout H/O: stroke Nov 2020 > no residual effects, follows with [facility] History of asthma A CHILD History of recent hospitalization [facility] 02/28/23-03/04/23. Presented to ED with chest and abdominal pain. Dx: biliary colic; surgery planned HTN (hypertension) Hyperlipidemia Implantable loop recorder present placed Sep 2021 at [facility] ; 'LINQ'; frequent PVCs; follows with EP Ischemic cardiomyopathy follows closely with Cardio Macular degeneration of left eye Myocardial Infarction 1999 Ocular migraine PAD (peripheral artery disease) per chart review, occlusion of L internal iliac and previously occluded R vertebral artery; follows with and Dr. Phelps. On Xarelto as well as antiplatelet therapy PVC (premature ventricular contraction) follows with Dr. Flores Restrictive lung disease hx of as child per pt Subjective tinnitus of both ears Vertebral artery occlusion On Xarelto as well as antiplatelet therapy. Per Neuro note, " history of 2 tiny subcortical left hemispheric ischemic infarcts without any significant residual neurologic deficits other than perhaps some mild subjective clums iness of the right hand. Patient has an incidental chronic occlusion of the right vertebral artery" Surgical History Dupuytren's contracture of left hand little finger surgery History of cardiac cath 1999 AND 2018 History of colonoscopy with polypectomy History of coronary artery bypass graft X 4 [facility] [place] 2000 X 3 [facility] [place] 2018 History of tonsillectomy Hx laparoscopic cholecystectomy (03/16/23) Laparoscopic Cholecystectomy(Not Applicable) - Lewis Pearson DO Family History Mother Cardiac disorder Breast cancer Family history of diabetes mellitus Hypertension Unknown Coronary heart disease Hypertension Father Cardiac disorder Myocardial infarction Heart disease Hypertension Denies family history of Ovarian cancer Prostate cancer Colorectal cancer Social History Smoking Status: Never smoker Second Hand Exposure: No; Do You Dip or Chew Tobacco: No; Hx Alcohol Use: Yes Alcohol type: hard liquor Alcohol Intake Frequency: 2-3 x/Week Hx Substance Use: No Preferred Language: Pakistani Communication Ability: Effective Visual Impairment: Limited Hearing Ability: Normal 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 Required: No Beliefs That Will Affect Care: None marital status: Current Living Situation: Spouse current occupational status: retired 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 NAD. Cooperative. HEENT: Atraumatic, normocephalic. Vision/hearing intact Pulm: CTAB A&P. -wheezes, -rales, -rhonchi. Symmetrical chest rise. No increased work of breathing. No respiratory distress. Cardiac: RRR, -mrg. Radial pulses intact and symmetrical. No JVD. Midline well-healed sternal scar Abdominal: Nontender, nondistended, soft. BS present. Extremities: No edema Results & Data Results & Data Vital Signs (Past 12 Hours) Vital Signs Temp Pulse Pulse Resp BP BP Pulse Ox 07/21/23 10:20 37 L 19 95 07/21/23 10:15 130/70 07/21/23 10:15 53 L 16 93 07/21/23 10:10 43 L 21 96 07/21/23 10:00 53 L 16 98 07/21/23 10:00 128/71 07/21/23 09:50 57 L 15 95 07/21/23 09:45 127/72 07/21/23 09:45 54 L 16 96 07/21/23 09:40 54 L 15 95 07/21/23 09:30 38 L 18 95 07/21/23 09:30 112/60 07/21/23 09:20 38 L 20 96 07/21/23 09:19 38 L 22 97 07/21/23 09:19 131/68 07/21/23 09:14 57 L 19 95 07/21/23 09:38 39 L 07/21/23 09:22 40 L 16 131/68 96 07/21/23 09:15 96 07/21/23 08:59 36.4 C L 41 L 122/68 94 O2 Del Method 07/21/23 10:20 07/21/23 10:15 07/21/23 10:15 07/21/23 10:10 07/21/23 10:00 07/21/23 10:00 07/21/23 09:50 07/21/23 09:45 07/21/23 09:45 07/21/23 09:40 07/21/23 09:30 07/21/23 09:30 07/21/23 09:20 07/21/23 09:19 07/21/23 09:19 07/21/23 09:14 07/21/23 09:38 07/21/23 09:22 Room Air 07/21/23 09:15 Room Air 07/21/23 08:59 Room Air PG Care Time/CCT Total # of Minutes Spent Total Time Spent with Patient: Total time spent is greater than 50% in coordination of care (as documented) at patient's floor/unit and/or counseling patient: Coding Level of Care Code 99269 INT INP/OBS CARE 3/75MIN Diagnoses Chest pain R07.9 Symptomatic PVCs I49.3 Acute hypotension I95.9 Symptomatic bradycardia R00.1 Exertional angina I20.8 PAD (peripheral artery disease) I73.9 HTN (hypertension) I10 Hypertension type: essential hypertension CAD (coronary artery disease) I25.10 Associated angina: without angina Coronary Disease-Associated Artery/Lesion type: unspecified vessel or lesion type [place] vs. transplanted heart: marshall heart Vertebral artery occlusion I65.09 (7) HTN (hypertension) Hypertension type: essential hypertension Qualified Code(s): I10 - Essential (primary) hypertension (8) CAD (coronary artery disease) Associated angina: without angina Coronary Disease-Associated Artery/Lesion type: unspecified vessel or lesion type [place] vs. transplanted heart: [place]all heart Qualified Code(s): I25.10 - Atherosclerotic heart disease of [place] coronary artery without angina pectoris
[2023-07-21] MEDS ORDERED: Heparin IV Adult Wt-Based Low-Dose WITH Bolus Protocol IV STA (11:39)
[2023-07-21] MEDS ORDERED: HEPARIN SOD (PORCINE) 1000 UNIT/ML IV ONE (11:55)
[2023-07-21] MEDS ORDERED: HEPARIN SODIUM/DEXTROSE 25,000 UNITS/500 ML BAG IV SCH (12:00)
[2023-07-21 12:09] LABS: Partial Thromboplastin Ratio 1.2; Prothrombin Time 11.4 Seconds (9.0-12.0)
--- NOTE | 2023-07-21 13:51 | XCELERA ---
[id number] [id number]
[2023-07-21] MEDS ORDERED: TRIAMCINOLONE ACET 0.1% CR 15 GM TUBE TOP PRN (14:04)
[2023-07-21] MEDS ORDERED: ACETAMINOPHEN 325 MG TAB PO PRN (14:04)
[2023-07-21] MEDS ORDERED: ATROPINE SULFATE 0.1 MG/ML 10ML SYR IV PRN (14:04)
[2023-07-21] MEDS ORDERED: NITROGLYCERIN SL 0.4 MG/TAB TAB SL PRN (14:04)
--- NOTE | 2023-07-21 15:59 | Cardiology Consultation ---
Date of Consultation July 21, 2023 Assessment & Plan (1) Chest pain: -the patient has had several months of exertional chest discomfort. -had an episode at rest prompting this admission. -was started on intravenous heparin for an acute coronary syndrome. Xarelto on hold. -Dr. Orozco to decide if a cardiac catheterization is indicated. (2) Bradycardia: -likely secondary to amiodarone on carvedilol therapies. -agree with holding his medications for now. (3) CAD (coronary artery disease): -extensive history as described above. (4) PAD (peripheral artery disease): -on Xarelto for significant disease. -follows with Dr. Shafer. (5) Symptomatic PVCs: -has been on suppressive therapy with amiodarone per Dr. Flores. History of Present Illness Attending Physician: Osman Morales MD History of Present Illness Mr. Reed is a 67-year-old male admitted earlier today with a chest pain syndrome. This consultation was ordered to assist in his cardiac management. Of note, patient typically follows with Dr. Phelps and Dr. Flores in the outpatient setting. His recent history began back in April when he began to note a squeezing sensation in the substernal region with physical activity. He had radiation of the discomfort to his right axilla and right neck. His symptoms would resolve after 3-5 minutes of rest. There were no other associated symptoms such as shortness of breath, nausea, vomiting, or diaphoresis. He was seen by Dr. Flores on May 31 with the above complaints. He was then scheduled for a stress echocardiogram which was performed on June 17. This showed no evidence of myocardial ischemia at 9.8 M ETS and peak heart rate of 70 6% predicted maximum. The patient continue to experience exertional symptoms. It was felt that his stress test may have been a false negative, therefore, cardiac catheterization was scheduled for next week. This morning, the patient had acute onset of a substernal chest discomfort described as a squeezing sensation radiating to his right axilla and right neck. His symptoms lasted for approximately 15 minutes and resolved spontaneously. He was very concerned, therefore, presented the emergency room further care. The patient has longstanding history of coronary artery disease. He underwent a 4 vessel bypass in August 2000 which included an WOOD to the LAD, an SVG to a diagonal branch, SVG to OM branch, and SVG to PDA. He did well until the summer when he had recurrent symptoms and sought a 2nd opinion at the [facility]. This resulted cardiac catheterization and a redo CABG which included are KEYANNA to OM 2, SVG to a diagonal branch, and SVG to the PDA. The patient also experiences frequent PVCs in his axilla been placed on amiodarone for suppression. He did have a loop recorder placed in August 2021 after a cryptogenic stroke. He is on low-dose Xarelto for peripheral vascular disease and follows with Dr. Shafer. Currently, patient is resting comfortably in bed without complaints. Past medical and surgical history 1. Coronary artery disease 2. CABG x4-August 2000, see above 3. Redo CABG times 10 May 2018, see above 4. Frequent symptomatic PVCs 5. Hypertension 6. Hypercholesterolemia 7. Implantable loop recorder-August 2021, cryptogenic stroke 8. Peripheral vascular disease 9. Right internal iliac artery aneurysm 10. Occluded left internal iliac artery 11. Occluded right vertebral artery 12. Gout 13. Diverticulitis 14. Colonic polyps 15. Ocular migraines 16. Anxiety/depression 17. Tonsillectomy 18. Laparoscopic cholecystectomy-February 2023 Social history and lives with his No tobacco Occasional alcohol Family history Noncontributory Review of systems A 10 review systems undertaken and negative except that described above. Allergies Allergy/AdvReac Type Severity Reaction Status Date / Time hydrocodone [From Vicodin] AdvReac Severe CONSTIPATION Verified 07/18/23 23:16 SEVERE codeine AdvReac Intermediate GI SYMPTOMS Verified 07/18/23 23:16 oxycodone AdvReac Intermediate Nausea Verified 07/18/23 23:16 sulfamethoxazole AdvReac Intermediate Nausea Verified 07/18/23 23:16 [From Bactrim] trimethoprim [From Bactrim] AdvReac Intermediate Nausea Verified 07/18/23 23:16 valacyclovir AdvReac Intermediate severe Verified 07/18/23 23:16 back pains Home Medications Medication Instructions Recorded Confirmed Type multivitamin 1 tab PO QAM 04/24/19 07/21/23 History nitroglycerin 0.4 mg sublingual 0.4 mg sublingual UD PRN Angina 07/29/20 07/21/23 Rx tablet (Nitrostat) #30 tabs triamcinolone acetonide 0.1 % 1 applic topical DAILY PRN scotal 02/11/21 07/21/23 History topical cream itch lutein 20 mg tablet 20 mg PO QAM 06/11/21 07/21/23 History omega 3-hhi-prg-fish oil 1,200 mg 1 cap PO QPM 05/26/22 07/21/23 History (144 mg-216 mg) capsule (Fish Oil) rivaroxaban 2.5 mg tablet (Xarelto) 2.5 mg PO BID #180 tabs 08/27/22 07/21/23 Rx rosuvastatin 40 mg tablet (Crestor) 40 mg PO HS #90 tabs 08/27/22 07/21/23 Rx losartan 50 mg tablet 50 mg PO BID #180 tabs 02/15/23 07/21/23 Rx amlodipine 10 mg tablet 10 mg PO QAM 03/02/23 07/21/23 History aspirin 81 mg tablet,delayed 81 mg PO BID 03/02/23 07/21/23 History release amiodarone 200 mg tablet See Rx Instructions .Route .COMPLEX 04/12/23 07/21/23 History magnesium 250 mg tablet 250 mg PO QAM 04/12/23 07/21/23 History ezetimibe 10 mg tablet (Zetia) 10 mg PO HS #90 tabs 05/20/23 07/21/23 Rx carvedilol 12.5 mg tablet 12.5 mg PO BID 05/27/23 07/21/23 History allopurinol 100 mg tablet 100 mg PO QAM #90 tabs 07/16/23 07/21/23 Rx ascorbic acid (vitamin C) 500 mg 500 mg PO QAM 07/18/23 07/21/23 History tablet (Vitamin C) Patient History Medical History Abdominal pain Acute lower gastrointestinal bleeding resolved per pt Aneurysm of right internal iliac artery per chart review, occlusion of L internal iliac and previously occluded R vertebral artery; follows with Anxiety and depression no meds CAD (coronary artery disease) s/p CABG x 4 in 2002 and 're-do x 3' in 2018. pt follows closely with cardiology Chronic dysfunction of both eustachian tubes Chronic stable angina follows closely with Cardio; 'aggressive RF modification' including antiplatelet therapy as well as NTG Diverticulitis resolved Gout H/O: stroke Nov 2020 > no residual effects, follows with [place] [facility] History of asthma A CHILD History of recent hospitalization [facility] 02/28/23-03/04/23. Presented to ED with chest and abdominal pain. Dx: biliary colic; surgery planned HTN (hypertension) Hyperlipidemia Implantable loop recorder present placed Sep 2021 at [facility] ; 'LINQ'; frequent PVCs; follows with EP Ischemic cardiomyopathy follows closely with Cardio Macular degeneration of left eye Myocardial Infarction 1999 Ocular migraine PAD (peripheral artery disease) per chart review, occlusion of L internal iliac and previously occluded R vertebral artery; follows with and Dr. Phelps. On Xarelto as well as antiplatelet therapy PVC (premature ventricular contraction) follows with Dr. Flores Restrictive lung disease hx of as child per pt Subjective tinnitus of both ears Vertebral artery occlusion On Xarelto as well as antiplatelet therapy. Per Neuro note, " history of 2 tiny subcortical left hemispheric ischemic infarcts without any significant residual neurologic deficits other than perhaps some mild subjective clumsiness of the right hand. Patient has an incidental chronic occlusion of the right vertebral artery" Surgical History Dupuytren's contracture of left hand little finger surgery History of cardiac cath 1999 AND 2018 History of colonoscopy with polypectomy History of coronary artery bypass graft X 4 VESSELS IN 1999 X 3 VESSELS IN 2018 History of tonsillectomy Hx laparoscopic cholecystectomy (03/16/23) Laparoscopic Cholecystectomy(Not Applicable) - Lewis Pearson DO Family History Mother Cardiac disorder Breast cancer Family history of diabetes mellitus Hypertension Unknown Coronary heart disease Hypertension Father Cardiac disorder Myocardial infarction Heart disease Hypertension Denies family history of Ovarian cancer Prostate cancer Colorectal cancer Social History Smoking Status: Never smoker Second Hand Exposure: No; Do You Dip or Chew Tobacco: No; Hx Alcohol Use: No Hx Substance Use: No Preferred Language: Luxembourger Communication Ability: Effective Visual Impairment: Limited Hearing Ability: Normal Movement Therapist Required: No Beliefs That Will Affect Care: None marital status: Current Living Situation: Spouse Current Living Situation Comment: with Spouse current occupational status: 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 HEENT exam is negative. Neck is supple with full carotid upstrokes. There are no carotid bruits. Jugular venous pressure is flat at 90. There is no thyromegaly. Cardiovascular exam reveals a regular rhythm with a normal S1 and S2. No S3, S4, or murmurs are noted. Lungs are clear without rales, rhonchi, or wheezes. Chest reveals a well-healed midline scar. Abdomen is soft and nontender without bruits. Extremities reveal intact radial artery and posterior tibial pulses bilaterally. There is no peripheral edema. Results & Data Vital Signs (Past 12 Hours) Vital Signs Temp Pulse Pulse Resp BP BP Pulse Ox 07/21/23 14:04 07/21/23 10:51 36.5 C 67 16 151/75 H 96 07/21/23 15:23 36.5 C 67 18 151/75 H 96 07/21/23 14:00 140/82 07/21/23 13:59 60 14 94 07/21/23 13:50 51 L 13 94 07/21/23 13:45 56 L 15 94 07/21/23 13:45 127/76 07/21/23 13:40 55 L 15 94 07/21/23 13:30 55 L 14 94 07/21/23 13:30 126/73 07/21/23 13:20 54 L 14 95 07/21/23 13:15 56 L 14 94 07/21/23 13:15 140/78 07/21/23 13:10 57 L 20 94 07/21/23 13:00 56 L 17 94 07/21/23 13:00 129/72 07/21/23 12:51 60 21 93 07/21/23 12:45 139/74 07/21/23 12:45 53 L 16 95 07/21/23 12:40 58 L 15 96 07/21/23 13:35 55 L 07/21/23 12:30 52 L 19 96 07/21/23 12:30 128/68 07/21/23 12:20 53 L 14 97 07/21/23 12:10 55 L 17 97 07/21/23 12:00 58 L 15 95 07/21/23 12:00 131/73 07/21/23 11:50 61 14 95 07/21/23 11:45 131/73 07/21/23 11:45 56 L 19 96 07/21/23 11:40 57 L 16 96 07/21/23 11:30 58 L 21 96 07/21/23 11:30 138/78 07/21/23 11:24 153/76 H 07/21/23 11:24 56 L 21 96 07/21/23 11:23 94 07/21/23 11:16 57 L 19 95 07/21/23 11:16 156/79 H 07/21/23 11:10 56 L 23 96 07/21/23 11:00 55 L 17 96 07/21/23 11:00 144/75 H 07/21/23 10:50 54 L 21 96 07/21/23 10:45 55 L 15 95 07/21/23 10:45 127/71 07/21/23 10:40 53 L 17 94 07/21/23 10:30 53 L 14 95 07/21/23 10:30 132/74 07/21/23 10:20 37 L 19 95 07/21/23 10:15 130/70 07/21/23 10:15 53 L 16 93 07/21/23 10:10 43 L 21 96 07/21/23 10:00 53 L 16 98 07/21/23 10:00 128/71 07/21/23 09:50 57 L 15 95 07/21/23 09:45 127/72 07/21/23 09:45 54 L 16 96 07/21/23 09:40 54 L 15 95 07/21/23 09:30 38 L 18 95 07/21/23 09:30 112/60 07/21/23 09:20 38 L 20 96 07/21/23 09:19 38 L 22 97 09/13/23 09:19 131/68 07/21/23 09:14 57 L 19 95 07/21/23 09:38 39 L 07/21/23 09:22 40 L 16 131/68 96 07/21/23 09:15 96 07/21/23 08:59 36.4 C L 41 L 122/68 94 Pulse Ox O2 Del Method O2 Del Method 07/21/23 14:04 96 Room Air 07/21/23 10:51 Room Air 07/21/23 15:23 Room Air 07/21/23 14:00 07/21/23 13:59 07/21/23 13:50 07/21/23 13:45 07/21/23 13:45 07/21/23 13:40 07/21/23 13:30 07/21/23 13:30 07/21/23 13:20 07/21/23 13:15 07/21/23 13:15 07/21/23 13:10 07/21/23 13:00 07/21/23 13:00 07/21/23 12:51 07/21/23 12:45 07/21/23 12:45 07/21/23 12:40 07/21/23 13:35 07/21/23 12:30 07/21/23 12:30 07/21/23 12:20 07/21/23 12:10 07/21/23 12:00 07/21/23 12:00 07/21/23 11:50 07/21/23 11:45 07/21/23 11:45 07/21/23 11:40 07/21/23 11:30 07/21/23 11:30 07/21/23 11:24 07/21/23 11:24 07/21/23 11:23 07/21/23 11:16 07/21/23 11:16 07/21/23 11:10 07/21/23 11:00 07/21/23 11:00 07/21/23 10:50 07/21/23 10:45 07/21/23 10:45 07/21/23 10:40 07/21/23 10:30 07/21/23 10:30 07/21/23 10:20 07/21/23 10:15 07/21/23 10:15 07/21/23 10:10 07/21/23 10:00 07/21/23 10:00 07/21/23 09:50 07/21/23 09:45 07/21/23 09:45 07/21/23 09:40 07/21/23 09:30 07/21/23 09:30 07/21/23 09:20 07/21/23 09:19 07/21/23 09:19 07/21/23 09:14 07/21/23 09:38 07/21/23 09:22 Room Air 07/21/23 09:15 Room Air 07/21/23 08:59 Room Air Laboratory Results CBC notes hemoglobin 13.9, hematocrit 40.8, white count 8.13, and platelet count [id number]. Electrolytes note a sodium of 130, potassium 3.7, chloride 107, bicarb 26, BUN 18, creatinine 1.33, and glucose of 114. AST is mildly elevated at 76 as is the ALT at 86. Initial high sensitivity troponin was 9 with a follow-up value of 7.3. Diagnostic Findings Echocardiogram notes normal left ventricular systolic function with ejection fraction 55-60%. There were no wall motion abnormalities. There is borderline LVH along with mild tricuspid regurgitation. Compared with study performed in October 2022, no significant change. EKG notes a junctional bradycardia. Chest x-ray notes cardiomegaly and postoperative changes. Loop recorder is in place. No acute disease. PG Care Time/CCT Total # of Minutes Spent Total Time Spent with Patient: Total time spent is greater than 50% in coordination of care (as documented) at patient's floor/unit and/or counseling patient: Coding Level of Care Code 06732 INT INP/OBS CARE 3/75MIN Diagnoses Chest pain R07.9 Bradycardia R00.1 CAD (coronary artery disease) I25.10 Coronary Disease-Associated Artery/Lesion type: unspecified vessel or lesion type [place] vs. transplanted heart: [place] heart Associated angina: without angina PAD (peripheral artery disease) I73.9 Symptomatic PVCs I49.3 (3) CAD (coronary artery disease) Coronary Disease-Associated Artery/Lesion type: unspecified vessel or lesion type [place] vs. transplanted heart: [place] heart Associated angina: without angina Qualified Code(s): I25.10 - Atherosclerotic heart disease of [place] coronary artery without angina pectoris
[2023-07-21] MEDS: EZETIMIBE 10 MG TAB PO SCH (20:57)
[2023-07-21] MEDS: LOSARTAN POTASSIUM 50 MG TAB PO SCH (20:57)
[2023-07-21] MEDS: OMEGA-3 (PURIFIED FISH OIL) 1 GM CAP PO SCH (20:57)
[2023-07-21] MEDS: ROSUVASTATIN CALCIUM 20 MG TAB PO SCH (20:57)
[2023-07-21 21:51] LABS: Partial Thromboplastin Ratio 2.2
[2023-07-21 21:55] LABS: Partial Thromboplastin Time 63.3 Seconds (21.0-31.0)
[2023-07-22 05:51] LABS: Basophils # (auto) 0.06 K/uL (0.00-0.20); Eosinophils # (auto) 0.29 K/uL (0.00-0.50); Eosinophils % (auto) 4.9 %; Hematocrit (blood only) 37.8 % (42.0-52.0); Hemoglobin 12.8 g/dl (14.0-18.0); Immature Granulocytes # (auto) 0.01 K/uL (0.01-0.20); Immature Granulocytes % (auto) 0.2 %; Lymphocytes # (auto) 1.55 K/uL (1.20-3.40); Lymphocytes % (auto) 26.1 %; Mean Corpuscular Hemoglobin 30.8 pg (25.0-34.0); Mean Corpuscular Hgb Conc 33.9 g/dL (32.0-36.0); Mean Corpuscular Volume 91.1 fL (80.0-100.0); Mean Platelet Volume 9.4 fL (9.4-12.4); Monocytes # (auto) 0.74 K/uL (0.11-0.59); Monocytes % (auto) 12.5 %; Neutrophils # (auto) 3.29 K/uL (1.40-6.50); Neutrophils % (auto) 55.3 %; Platelet Count 142 K/uL (130-400); RDW Coefficient of Variation 11.9 % (11.5-14.5); RDW Standard Deviation 39.9 fL (36.4-46.3); Red Blood Count 4.15 M/uL (4.70-6.10); White Blood Count 5.94 K/ul (4.8-10.8)
[2023-07-22 06:00] LABS: Albumin Globulin Ratio 1.3 (0.9-2); Albumin Level 3.3 gm/dl (3.4-5.0); BUN Creatinine Ratio 12.3 (10-20); Bilirubin,Total 0.6 mg/dl (0.2-1.0); Creatinine Clr Calc Pharmacy 62.4 ml/min; Est GFR (African American) 83.2 ml/min; Est GFR (Non-African American) 71.8 ml/min; Globulin 2.6 gm/dl (2.5-4.0); Magnesium 2.1 mg/dl (1.7-2.4); Potassium 3.8 mmol/L (3.5-5.1); Total Protein 5.9 gm/dl (6.0-8.3)
[2023-07-22 06:34] LABS: Partial Thromboplastin Time 56.4 Seconds (21.0-31.0)
[2023-07-22] MEDS: amLODIPine BESYLATE 5 MG TAB PO SCH (07:44)
[2023-07-22] MEDS: LOSARTAN POTASSIUM 50 MG TAB PO SCH ×2 (07:44→20:25)
[2023-07-22] MEDS: ASPIRIN 81 MG ECTAB PO SCH ×2 (07:44→20:25)
[2023-07-22] MEDS ORDERED: niCARdipine HCL INJ 2.5 MG/ML 10 ML AMP ONE (08:16)
[2023-07-22] MEDS ORDERED: HEPARIN (PORCINE) 1000 UNIT/ML 10 ML (CATH LAB USE ONLY) ONE (08:16)
[2023-07-22] MEDS ORDERED: fentaNYL citrate PF 100 MCG/2 ML VIAL ONE (08:16)
[2023-07-22] MEDS ORDERED: MIDAZOLAM HCL 1 MG/ML 2ML VIAL ONE ×2 (08:16→09:26)
[2023-07-22] MEDS ORDERED: NITROGLYCERIN/D5W 100MCG/ML 20ML SYR ONE (08:17)
--- NOTE | 2023-07-22 08:17 | Pre Anesthesia Assessment ---
Date of Service July 22, 2023 Pre Sedation Assessment Vital Signs Temp Pulse Pulse Pulse Resp BP BP 07/22/23 08:09 67 16 117/76 07/22/23 07:41 65 14 131/72 07/22/23 07:00 57 L 07/22/23 03:00 98.1 F 61 16 135/77 07/21/23 23:00 98.4 F 54 L 16 125/77 07/21/23 22:54 40 L 07/21/23 19:00 98.2 F 49 L 14 112/60 07/21/23 18:10 41 L 22 108/62 07/21/23 14:04 07/21/23 10:51 97.7 F 67 16 07/21/23 15:23 97.7 F 67 18 07/21/23 14:00 140/82 07/21/23 13:59 60 14 07/21/23 13:50 51 L 13 07/21/23 13:45 56 L 15 07/21/23 13:45 127/76 07/21/23 13:40 55 L 15 07/21/23 13:30 55 L 14 07/21/23 13:30 126/73 07/21/23 13:20 54 L 14 07/21/23 13:15 56 L 14 07/21/23 13:15 140/78 07/21/23 13:10 57 L 20 07/21/23 13:00 56 L 17 07/21/23 13:00 129/72 07/21/23 12:51 60 21 07/21/23 12:45 139/74 07/21/23 12:45 53 L 16 07/21/23 12:40 58 L 15 07/21/23 13:35 55 L 07/21/23 12:30 52 L 19 07/21/23 12:30 128/68 07/21/23 12:20 53 L 14 07/21/23 12:10 55 L 17 07/21/23 12:00 58 L 15 07/21/23 12:00 131/73 07/21/23 11:50 61 14 07/21/23 11:45 131/73 07/21/23 11:45 56 L 19 07/21/23 11:40 57 L 16 07/21/23 11:30 58 L 21 09/13/23 11:30 138/78 07/21/23 11:24 153/76 H 07/21/23 11:24 56 L 21 07/21/23 11:23 07/21/23 11:16 57 L 19 07/21/23 11:16 156/79 H 07/21/23 11:10 56 L 23 07/21/23 11:00 55 L 17 07/21/23 11:00 144/75 H 07/21/23 10:50 54 L 21 07/21/23 10:45 55 L 15 07/21/23 10:45 127/71 07/21/23 10:40 53 L 17 07/21/23 10:30 53 L 14 07/21/23 10:30 132/74 07/21/23 10:20 37 L 19 07/21/23 10:15 130/70 07/21/23 10:15 53 L 16 07/21/23 10:10 43 L 21 07/21/23 10:00 53 L 16 07/21/23 10:00 128/71 07/21/23 09:50 57 L 15 07/21/23 09:45 127/72 07/21/23 09:45 54 L 16 07/21/23 09:40 54 L 15 07/21/23 09:30 38 L 18 07/21/23 09:30 112/60 07/21/23 09:20 38 L 20 07/21/23 09:19 38 L 22 07/21/23 09:19 131/68 07/21/23 09:14 57 L 19 07/21/23 09:38 39 L 07/21/23 09:22 40 L 16 07/21/23 09:15 07/21/23 08:59 97.5 F L 41 L 122/68 BP Pulse Ox Pulse Ox O2 Del Method O2 Del Method 07/22/23 08:09 95 Room Air 07/22/23 07:41 94 Room Air 07/22/23 07:00 07/22/23 03:00 95 Room Air 07/21/23 23:00 96 Room Air 07/21/23 22:54 07/21/23 19:00 94 Room Air 07/21/23 18:10 Room Air 07/21/23 14:04 96 Room Air 07/21/23 10:51 151/75 H 96 Room Air 07/21/23 15:23 151/75 H 96 Room Air 07/21/23 14:00 07/21/23 13:59 94 07/21/23 13:50 94 07/21/23 13:45 94 07/21/23 13:45 07/21/23 13:40 94 07/21/23 13:30 94 07/21/23 13:30 07/21/23 13:20 95 07/21/23 13:15 94 07/21/23 13:15 07/21/23 13:10 94 07/21/23 13:00 94 07/21/23 13:00 07/21/23 12:51 93 07/21/23 12:45 07/21/23 12:45 95 07/21/23 12:40 96 07/21/23 13:35 07/21/23 12:30 96 07/21/23 12:30 07/21/23 12:20 97 07/21/23 12:10 97 07/21/23 12:00 95 07/21/23 12:00 07/21/23 11:50 95 07/21/23 11:45 07/21/23 11:45 96 07/21/23 11:40 96 07/21/23 11:30 96 07/21/23 11:30 07/21/23 11:24 07/21/23 11:24 96 07/21/23 11:23 94 07/21/23 11:16 95 07/21/23 11:16 07/21/23 11:10 96 07/21/23 11:00 96 07/21/23 11:00 07/21/23 10:50 96 07/21/23 10:45 95 07/21/23 10:45 07/21/23 10:40 94 07/21/23 10:30 95 07/21/23 10:30 07/21/23 10:20 95 07/21/23 10:15 07/21/23 10:15 93 07/21/23 10:10 96 07/21/23 10:00 98 07/21/23 10:00 07/21/23 09:50 95 07/21/23 09:45 07/21/23 09:45 96 07/21/23 09:40 95 07/21/23 09:30 95 07/21/23 09:30 07/21/23 09:20 96 07/21/23 09:19 97 07/21/23 09:19 07/21/23 09:14 95 07/21/23 09:38 07/21/23 09:22 131/68 96 Room Air 07/21/23 09:15 96 Room Air 07/21/23 08:59 94 Room Air Cardiovascular RRR, no murmur, no edema Respiratory normal respiratory effort, lungs clear to auscultation Pre-Sedation Airway Assessment Smoking Status: Never smoker Hx Sleep Apnea: No Hx Difficult Intubation: No Short, Thick Neck: No Thyromental Distance: > or= 3.5 Finger Breadths Oral Cavity: + WNL Mallampati Class: II ASA: ASA3 NPO Status Date of Last Intake of Fluids: 07/21/23 Time of Last Intake of Fluids: 21:00 Date of Last Intake of Solid Food: 07/21/23 Time of Last Intake of Solid Foods: 21:00 Procedure Planning Contraindications for Sedation: none Current Medications Reviewed: Yes Notes The planned sedation has been discussed with the patient. Informed Consent was obtained. I have identified the patient, determined the appropriateness of sedation and have assessed the patient immediately prior to the procedure. All medicine(s) and interventions are by my order.
--- NOTE | 2023-07-22 10:01 | Post Anesthesia Assessment ---
Date of Service July 22, 2023 Post Sedation Assessment Vital Signs Temp Pulse Pulse Pulse Resp BP BP 07/22/23 08:09 67 16 117/76 07/22/23 07:41 65 14 131/72 07/22/23 07:00 57 L 07/22/23 03:00 98.1 F 61 16 135/77 07/21/23 23:00 98.4 F 54 L 16 125/77 07/21/23 22:54 40 L 07/21/23 19:00 98.2 F 49 L 14 112/60 07/21/23 18:10 41 L 22 108/62 07/21/23 14:04 07/21/23 10:51 97.7 F 67 16 07/21/23 15:23 97.7 F 67 18 07/21/23 14:00 140/82 07/21/23 13:59 60 14 07/21/23 13:50 51 L 13 07/21/23 13:45 56 L 15 07/21/23 13:45 127/76 07/21/23 13:40 55 L 15 07/21/23 13:30 55 L 14 07/21/23 13:30 126/73 07/21/23 13:20 54 L 14 07/21/23 13:15 56 L 14 07/21/23 13:15 140/78 07/21/23 13:10 57 L 20 07/21/23 13:00 56 L 17 07/21/23 13:00 129/72 07/21/23 12:51 60 21 07/21/23 12:45 139/74 07/21/23 12:45 53 L 16 07/21/23 12:40 58 L 15 07/21/23 13:35 55 L 07/21/23 12:30 52 L 19 07/21/23 12:30 128/68 07/21/23 12:20 53 L 14 07/21/23 12:10 55 L 17 07/21/23 12:00 58 L 15 07/21/23 12:00 131/73 07/21/23 11:50 61 14 07/21/23 11:45 131/73 07/21/23 11:45 56 L 19 07/21/23 11:40 57 L 16 07/21/23 11:30 58 L 21 07/21/23 11:30 138/78 07/21/23 11:24 153/76 H 07/21/23 11:24 56 L 21 07/21/23 11:23 07/21/23 11:16 57 L 19 07/21/23 11:16 156/79 H 07/21/23 11:10 56 L 23 07/21/23 11:00 55 L 17 07/21/23 11:00 144/75 H 07/21/23 10:50 54 L 21 07/21/23 10:45 55 L 15 07/21/23 10:45 127/71 07/21/23 10:40 53 L 17 07/21/23 10:30 53 L 14 07/21/23 10:30 132/74 07/21/23 10:20 37 L 19 07/21/23 10:15 130/70 07/21/23 10:15 53 L 16 07/21/23 10:10 43 L 21 BP Pulse Ox Pulse Ox O2 Del Method O2 Del Method 07/22/23 08:09 95 Room Air 07/22/23 07:41 94 Room Air 07/22/23 07:00 07/22/23 03:00 95 Room Air 07/21/23 23:00 96 Room Air 07/21/23 22:54 07/21/23 19:00 94 Room Air 07/21/23 18:10 Room Air 07/21/23 14:04 96 Room Air 07/21/23 10:51 151/75 H 96 Room Air 07/21/23 15:23 151/75 H 96 Room Air 07/21/23 14:00 07/21/23 13:59 94 07/21/23 13:50 94 07/21/23 13:45 94 07/21/23 13:45 07/21/23 13:40 94 07/21/23 13:30 94 07/21/23 13:30 07/21/23 13:20 95 07/21/23 13:15 94 07/21/23 13:15 07/21/23 13:10 94 07/21/23 13:00 94 07/21/23 13:00 07/21/23 12:51 93 07/21/23 12:45 07/21/23 12:45 95 07/21/23 12:40 96 07/21/23 13:35 07/21/23 12:30 96 07/21/23 12:30 07/21/23 12:20 97 07/21/23 12:10 97 07/21/23 12:00 95 07/21/23 12:00 07/21/23 11:50 95 07/21/23 11:45 07/21/23 11:45 96 07/21/23 11:40 96 07/21/23 11:30 96 07/21/23 11:30 07/21/23 11:24 07/21/23 11:24 96 07/21/23 11:23 94 07/21/23 11:16 95 07/21/23 11:16 07/21/23 11:10 96 07/21/23 11:00 96 07/21/23 11:00 07/21/23 10:50 96 07/21/23 10:45 95 07/21/23 10:45 07/21/23 10:40 94 07/21/23 10:30 95 07/21/23 10:30 07/21/23 10:20 95 07/21/23 10:15 07/21/23 10:15 93 07/21/23 10:10 96 Recovery Score Activity: Moves 4 extremities Respiration: Deep Breath/Cough Circulation: +/-20% PreAnes Value Consciousness: Fully Awake Oxygen Saturation: O2 needed for >90% Discharge Sedation Level of Care: Fast Track Phase II Post Sedation Plan On clinical assessment, the patient appears to have tolerated the sedation without complications. Patient is recovering as anticipated. Patient will continue to be monitored by nursing and may be discharged when sedation discharge criteria are met per below protocol. Upon Completions of procedure up to 15 minutes continue every 5 minute vital signs and the P.A.R. score; then discharge to a Phase I or Fast Track to Phase II per the following guidelines: * Discharge Patient to appropriate Phase II area if PAR is 8 or greater or return to pre- procedure baseline. The post - procedure orders will be as directed. * If PAR score is less than 8 or not return to pre-procedure baseline then patient will follow Phase I monitoring till PAR is reached for Phase II. The Phase I may be done in procedure room or may call to secure a Phase I area. * If naloxone or flumazenil are used for reversal, hold in Phase I for continued monitoring from when last reversal dose was given for a minimum of 60 minutes or longer pending the nurse and/or physician discretion of patient condition before discharge to Phase II. Please call the Sedation Physician to re-evaluate and complete post-note for discharge to Phase II area. Do NOT discharge from procedure sedation or Phase 1 until post- sedation evaluation note is complete by procedure /sedation MD Sedation Discharge Instructions to be given to the patient at discharge to home.
[2023-07-22] MEDS ORDERED: LIDOCAINE 1% LOCAL 20 ML VIAL ONE (10:13)
--- NOTE | 2023-07-22 10:27 | Cardiac Catheterization ---
[facility] Data: Business Case Analyst Cardiac Status Clinical evaluation leading to the procedure CAD Presenation: Stable angina Anginal Classification: CCS II Diagnostic Physicians Name: Nelson Orozco MD Closure Device Recommendations: Medical Therapy and/or Counseling Cardiac Cath Procedure Full Procedure Date July 22, 2023 Pre-Procedure Diagnosis Pre-Procedure Diagnosis: Angina and CAD AUC Score AUC Score: 7 Post-Procedure Diagnosis Post-Procedure Diagnosis: Severe CAD and Normal Intracardiac Pressures Procedure(s) Performed Procedure(s) Performed: Coronary Angiography, Left Heart Cath, Bypass Graft Angiography and Femoral Artery Angiography Pharmacy Technologist Nelson Orozco MD Welding Rod Coater(s) Feng Estimated Blood Loss Estimated Blood Loss: 15 Medication(s) Medication(s): Fentanyl, Lidocaine 1% and Versed Summary of Findings Indication: Severe coronary disease, history of remote four-vessel CABG, redo three-vessel CABG 2018. Now with new chest pain and frequent PVCs. Access: 6 Fr right common femoral artery under ultrasound guidance Catheters: JR4, JR4, KEYANNA, MPA, AL-1, pigtail Findings: LM -100% chronic total occlusion RCA -100% proximal chronic total occlusion. Provides faint right to right and right to left collaterals. WOOD to LADsmall, patent, 95% stenosis at anastomosis. Fills mid segment of small LAD with competitive flow CODI to OMoccluded mid segment SVG to [id number], ectatic. Small OM2 patent after anastomosis. Retrofills into AV groove circumflex with focal 95% distal stenosis prior to small left PLB SVG to [id number], ectatic, tortuous with 50% mid segment stensis. OM1 patent after anastomosis. Provides collaterals to diagonals. SVG to PDApatent, large vessel, tortuous. 70 to 80% stenosis in proximal PDA. Distal PDA wraps around apex and provides collaterals to distal LAD, diagonal. SVG to diagonalatretic SVG to PDAoccluded LVEDP -8 Arterial Closure: Mynx Summary: 1. Severe [place] multivessel coronary artery disease -100% left main chronic total occlusion 100% proximal RCA chronic total occlusion with faint right to right and right to left collaterals 2. Patent SVG to PDA. 75% proximal PDA. Distal PDA provides collaterals to LAD 3. Patent SVG to OM2. Retrofills AV groove circumflex with 95% stenosis prior to LPLB (reported on prior catheterization) 4. Patent SVG to OM1 with collaterals to diagonals. 5. WOOD to LAD patent with 95% anastomosis lesion (noted on prior catheterization) 6. CODI to OM, SVG to diagonal, old SVG to PDA occluded. 7. Normal intracardiac filling pressure Recommendations: Maximize antianginal therapy and continued ASCVD risk factor modification. If refractory angina in future could consider high risk PCI to RPDA after vein graft anastomosis. Hemodynamics Rest Ao:: 125/61/95 Final Ao: 128/58/86 LV: 125/8 Recommendations Recommendations: Medical Therapy and/or Counseling Specimens Specimens: None Radiation Exposure (mGy) 1956 Contrast (mls) 160 Anesthesia Moderate [id number] Procedural Complication(s) None Disposition Business Case Analyst Holding/Recovery I attest to the content of the Intraoperative Record and any orders documented therein. Any exceptions are noted below. [facility] Procedure Codes Cardiac Catheterization Procedure 1: Cardiovascular Cath Procedures: 75323 Coronaries & LHC (+/-LV) & Grafts/IM (arterial & venous) Therapeutic Services & Ancillary Procedure 1: Cardiovascular Tx and Anc Procedures: 27387 Ultrasonic Guidance Vascular Access Moderate Sedation Procedure 1: Sedation/Anesthesia: 10322 Mod Sedation by the same physician;Init15 Min Child Age 5 & Up Procedure 2: Sedation/Anesthesia: 40636 Mod Sedation by the same physician; Ea [id number] Minutes PG Care Time/CCT Total # of Minutes Spent Total Time Spent with Patient: Total time spent is greater than 50% in coordination of care (as documented) at patient's floor/unit and/or counseling patient:
[2023-07-22] MEDS: ASCORBIC ACID 500 MG TAB PO SCH (11:17)
[2023-07-22] MEDS: MULTIVITAMIN TAB PO SCH (11:17)
[2023-07-22] MEDS: allopurinoL 100 MG TAB PO SCH (11:18)
[2023-07-22] MEDS: MAGNESIUM OXIDE 400 MG TAB PO SCH (11:18)
--- NOTE | 2023-07-22 11:20 | Hospitalist Progress Note ---
Date of Service July 22, 2023 Assessment & Plan (1) Chest pain: Plan: -Patient has a Hx CAD s/p CABG x4, redo CABG x3 in the past. 1999 CABG was WOOD to LAD, SVG to diagonal, SVG to LCx OM, SVG to PDA. Repeat at [facility] 2018 CODI to OM 2, SVG to diagonal, SVG to PDA. -Presents to the hospital with chest pain. Also has a hx of frequent PVC's, has been on Amiodarone. He is now s/p cardiac cath, showing multivessel disease. 100% occlusion of LM and RCA. 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 -Patient may need pacemaker (5) PAD (peripheral artery disease): Plan: History of vertebral artery occlusion On anticoagulation and aspirin as noted, no new strokelike deficits. No acute change in management at this time. Statin continued as noted (6) Vertebral artery occlusion: Plan: History of vertebral artery occlusion On anticoagulation and aspirin as noted, no new strokelike deficits. No acute change in management at this time. Statin continued as noted (7) HTN (hypertension): Plan: Continue Amlodipine and Losartan (8) CAD (coronary artery disease): (9) Exertional angina: Plan DVT prophylaxis: Anticoagulated Disposition: PCU CODE STATUS: Full code Diet: Clears Admission and Anticipated Discharge Date Admission Date: July 21, 2023 Subjective patient seen and examined, stable post cardiac cath Review of Systems Review of Systems: All systems reviewed are negative, apart from the ones contained in the history. Physical Exam Physical Exam: The patient is awake, alert and oriented 3, well developed and well nourished, normocephalic and atraumatic, lying in bed and in no acute distress. HEENT--PERRL, EOMI, mucous membranes and oropharynx mildly dry Neck--supple. No JVD. No bruits. Thyroid normal, trachea midline, no adenopathy. Heart--normal S1 and S2. No murmurs, rubs or gallops. Lungs--clear bilaterally, no respiratory distress, no accessory muscle use. Abdomen--normal bowel sounds and soft. Mild epigastric and left sided abdominal pain Extremities--no cyanosis or clubbing. No edema. Dermatologic--normal skin turgor, normal color, no abnormal lymph nodes, no rash. Neurologic--cranial nerves II through XII grossly intact. Rheumatologic--normal range of motion. Psychiatric--normal affect. Results & Data Results & Data Vital Signs (Past 12 Hours) Vital Signs Temp Pulse Pulse Pulse Resp BP Pulse Ox 07/22/23 11:07 98.1 F 60 16 150/81 H 94 07/22/23 10:51 98.1 F 59 L 14 134/76 93 07/22/23 10:10 61 18 131/78 97 07/22/23 08:09 67 16 117/76 95 07/22/23 07:41 65 14 131/72 94 07/22/23 07:00 57 L 07/22/23 03:00 98.1 F 61 16 135/77 95 O2 Del Method 07/22/23 11:07 Room Air 07/22/23 10:51 Room Air 07/22/23 10:10 Room Air 07/22/23 08:09 Room Air 07/22/23 07:41 Room Air 07/22/23 07:00 07/22/23 03:00 Room Air PG Care Time/CCT Total # of Minutes Spent Total Time Spent with Patient: Total time spent is greater than 50% in coordination of care (as documented) at patient's floor/unit and/or counseling patient: Coding Level of Care Code 16499 SUB INP/OBS CARE 2/35MIN Diagnoses Chest pain R07.9 Symptomatic PVCs I49.3 Acute hypotension I95.9 Symptomatic bradycardia R00.1 PAD (peripheral artery disease) I73.9 Vertebral artery occlusion I65.09 HTN (hypertension) I10 Hypertension type: essential hypertension CAD (coronary artery disease) I25.10 Coronary Disease-Associated Artery/Lesion type: unspecified vessel or lesion type [place] vs. transplanted heart: [place] heart Associated angina: without angina Exertional angina I20.8 Time Spent (min) 35 (7) HTN (hypertension) Hypertension type: essential hypertension Qualified Code(s): I10 - Essential (primary) hypertension (8) CAD (coronary artery disease) Coronary Disease-Associated Artery/Lesion type: unspecified vessel or lesion type [place] vs. transplanted heart: [place] heart Associated angina: without angina Qualified Code(s): I25.10 - Atherosclerotic heart disease of [place] coronary artery without angina pectoris
[2023-07-22] MEDS ORDERED: SODIUM CHLORIDE 0.9% 1,000 ML IV SCH (12:00)
--- NOTE | 2023-07-22 14:11 | Cardiology Progress Note ---
Date of Service July 22, 2023 Assessment & Plan (1) Chest pain: Plan: -attempt to increase antianginals, however, bradycardia may be an issue. -consider ranolazine. (2) CAD (coronary artery disease): Plan: -extensive history as described. -cardiac catheterization reviewed with Dr. Orozco. -could consider high risk PCI to the RPDA lesion distal to the vein graph anastomosis. (3) Bradycardia: Plan: -likely secondary to amiodarone on carvedilol therapies. -continue to monitor. (4) Symptomatic PVCs: Plan: -has been on suppressive therapy with amiodarone per Dr. Flores. (5) PAD (peripheral artery disease): Plan: -on Xarelto for significant disease. -follows with Dr. Shafer. Admission and Anticipated Discharge Date Admission Date: July 21, 2023 Subjective The patient is resting comfortably in bed without complaints of chest pain, dyspnea, syncope, or presyncope. Results of his cardiac catheterization reviewed in detail. His is at the bedside. Physical Exam Physical Exam: In general this is a well-developed well-nourished male in no acute distress. HEENT exam is negative. Neck is supple with full carotid upstrokes. There are no carotid bruits. Jugular venous pressure is flat at 90. There is no thyromegaly. Cardiovascular exam reveals a regular rhythm with a normal S1 and S2. No S3, S4, or murmurs are noted. Lungs are clear without rales, rhonchi, or wheezes. Chest reveals a well-healed midline scar. Abdomen is soft and nontender without bruits. Extremities reveal intact radial artery pulses bilaterally. Right groin notes a dry dressing. No bruits. Results & Data Vital Signs (Past 12 Hours) Vital Signs Temp Pulse Pulse Pulse Resp BP Pulse Ox 07/22/23 13:08 59 L 14 128/72 94 07/22/23 12:45 53 L 16 115/68 94 07/22/23 12:16 07/22/23 12:10 36.6 C 60 14 116/70 93 07/22/23 11:07 36.7 C 60 16 150/81 H 94 07/22/23 11:48 36.7 C 60 14 128/74 94 07/22/23 10:51 36.7 C 59 L 14 134/76 93 07/22/23 10:10 61 18 131/78 97 07/22/23 08:09 67 16 117/76 95 07/22/23 07:41 65 14 131/72 94 07/22/23 07:00 57 L 07/22/23 03:00 36.7 C 61 16 135/77 95 O2 Del Method 07/22/23 13:08 Room Air 07/22/23 12:45 Room Air 07/22/23 12:16 Room Air 07/22/23 12:10 Room Air 07/22/23 11:07 Room Air 07/22/23 11:48 Room Air 07/22/23 10:51 Room Air 07/22/23 10:10 Room Air 07/22/23 08:09 Room Air 07/22/23 07:41 Room Air 07/22/23 07:00 07/22/23 03:00 Room Air Diagnostic Findings court recording monitor notes sinus bradycardia and a junctional bradycardia. Occasional PVCs are noted. PG Care Time/CCT Total # of Minutes Spent Total Time Spent with Patient: Total time spent is greater than 50% in coordination of care (as documented) at patient's floor/unit and/or counseling patient: Coding Level of Care Code 40515 SUB INP/OBS CARE 3/50MIN Diagnoses Chest pain R07.9 CAD (coronary artery disease) I25.10 Associated angina: without angina Coronary Disease-Associated Artery/Lesion type: unspecified vessel or lesion type [place] vs. transplanted heart: [place] heart Bradycardia R00.1 Symptomatic PVCs I49.3 PAD (peripheral artery disease) I73.9 (2) CAD (coronary artery disease) Associated angina: without angina Coronary Disease-Associated Artery/Lesion type: unspecified vessel or lesion type [place] vs. transplanted heart: [place] heart Qualified Code(s): I25.10 - Atherosclerotic heart disease of [place] coronary artery without angina pectoris
--- NOTE | 2023-07-22 15:42 | Electrocardiogram Report ---
Test Reason : Blood Pressure : / mmHG Vent. Rate : 059 BPM Atrial Rate : 059 BPM P-R Int : 252 ms QRS Dur : 096 ms QT Int : 494 ms P-R-T Axes : 033 -36 054 degrees QTc Int : 489 ms Sinus bradycardia with 1st degree A-V block Possible Left atrial enlargement Left axis deviation Poor R wave progression, consider anterior ME vs. lead placement vs. LVH Abnormal ECG When compared with ECG of 21-JUL-2023 09:10, Sinus rhythm has replaced Junctional rhythm Vent. rate has increased BY 20 BPM Questionable change in initial forces of Septal leads QT has lengthened Confirmed by Scott Madrid ([id number]) on 07/22/2023 3:42:30 PM Referred By: REFERRED SELF Confirmed By:Scott Madrid
[2023-07-22] MEDS: ROSUVASTATIN CALCIUM 20 MG TAB PO SCH (20:25)
[2023-07-22] MEDS: EZETIMIBE 10 MG TAB PO SCH (20:25)
[2023-07-22] MEDS: OMEGA-3 (PURIFIED FISH OIL) 1 GM CAP PO SCH (20:25)
[2023-07-23 05:56] LABS: Basophils # (auto) 0.05 K/uL (0.00-0.20); Basophils % (auto) 0.8 %; Eosinophils # (auto) 0.28 K/uL (0.00-0.50); Eosinophils % (auto) 4.7 %; Hematocrit (blood only) 36.9 % (42.0-52.0); Hemoglobin 12.7 g/dl (14.0-18.0); Immature Granulocytes # (auto) 0.01 K/uL (0.01-0.20); Immature Granulocytes % (auto) 0.2 %; Lymphocytes # (auto) 1.22 K/uL (1.20-3.40); Lymphocytes % (auto) 20.7 %; Mean Corpuscular Hemoglobin 31.1 pg (25.0-34.0); Mean Corpuscular Hgb Conc 34.4 g/dL (32.0-36.0); Mean Corpuscular Volume 90.2 fL (80.0-100.0); Mean Platelet Volume 9.2 fL (9.4-12.4); Monocytes # (auto) 0.76 K/uL (0.11-0.59); Monocytes % (auto) 12.9 %; Neutrophils # (auto) 3.58 K/uL (1.40-6.50); Neutrophils % (auto) 60.7 %; Platelet Count 149 K/uL (130-400); RDW Coefficient of Variation 11.9 % (11.5-14.5); RDW Standard Deviation 39.6 fL (36.4-46.3); Red Blood Count 4.09 M/uL (4.70-6.10)
[2023-07-23 06:31] LABS: Partial Thromboplastin Ratio 1.1; Partial Thromboplastin Time 30.5 Seconds (21.0-31.0)
[2023-07-23] MEDS: MAGNESIUM OXIDE 400 MG TAB PO SCH (07:57)
[2023-07-23] MEDS: allopurinoL 100 MG TAB PO SCH (07:58)
[2023-07-23] MEDS: ASPIRIN 81 MG ECTAB PO SCH (07:58)
[2023-07-23] MEDS: MULTIVITAMIN TAB PO SCH (07:59)
[2023-07-23] MEDS: ASCORBIC ACID 500 MG TAB PO SCH (08:00)
[2023-07-23] MEDS: amLODIPine BESYLATE 5 MG TAB PO SCH (08:00)
[2023-07-23] MEDS: LOSARTAN POTASSIUM 50 MG TAB PO SCH (08:01)
--- NOTE | 2023-07-23 09:58 | Discharge Summary ---
Date of Service July 23, 2023 Admission HPI Per Admitting Provider Omid is a 67-year-old male with past medical history of CAD, hypertension, PAD, ischemic cardiomyopathy, iliac artery thrombolic embolism, GI bleed, ischemic strokes, restrictive lung disease, first-degree AV block, symptomatic PVCs who presents with symptomatic bradycardia on carvedilol. Chart review: EKG: Junctional bradycardia, rate 39. No leukocytosis Potassium 3.7 -Troponin normal Received aspirin x1 in ER Amiodarone, carvedilol held Patient with teletypesetter monitor read 06/21/2023: 3 sinus pauses longest 3 seconds at that time. Stress echo 06/17/2023: Negative for ischemia at 76% max heart rate, negative s tress EKG for ischemia. EF 60-65%. No wall motion abnormalities were noted Long history of cardiac palpitations for which she takes amiodarone, dose was increased to 400 mg p.o. daily this past month then decreased due to poor tolerance/flushing Omid is seen at the bedside. He reports he is had a longstanding history of very symptomatic and bothersome PVCs which cause some pain in his chest, but more recently has had development of a squeezing substernal pain in the center of his chest which radiates to his armpit and right neck. He reports he had seen Dr. Worley as an outpatient and was scheduled for a cath next Wednesday. Unfortunately he is continued to have recurrent episodes of pain lasting 3 to 5 minutes in duration, which are brought out by exertion and resolve with rest, and which have occurred intermittently last night at rest while sleeping. He reports this sensation is different from his prior SC (history of bypass at [facility] 2000, and repeat bypass at [facility] 2018) which felt more of a burning sensation in his chest, but this is also not the same as his prior palpitations or "hollowed out feeling "as he has experienced before. Did have an episode of transient hypotension and dizziness with bradycardia earlier while in the ER. Ches tpain free at time of assessment Medical History: Reviewed Medications: Reviewed Surgical History: Reviewed Family history: Reviewed Allergies: Reviewed Social History:REviewed Code Status: Conditional Code Principal Diagnosis chest pain Discharge Exam The patient is awake, alert and oriented 3, well developed and well nourished, normocephalic and atraumatic, lying in bed and in no acute distress. HEENT--PERRL, EOMI, mucous membranes and oropharynx mildly dry Neck--supple. No JVD. No bruits. Thyroid normal, trachea midline, no adenopathy. Heart--normal S1 and S2. No murmurs, rubs or gallops. Lungs--clear bilaterally, no respiratory distress, no accessory muscle use. Abdomen--normal bowel sounds and soft. Mild epigastric and left sided abdominal pain Extremities--no cyanosis or clubbing. No edema. Dermatologic--normal skin turgor, normal color, no abnormal lymph nodes, no rash. Neurologic--cranial nerves II through XII grossly intact. Rheumatologic--normal range of motion. Psychiatric--normal affect. Discharge Data Allergies Allergy/AdvReac Type Severity Reaction Status Date / Time hydrocodone [From Vicodin] AdvReac Severe CONSTIPATION Verified 07/18/23 23:16 SEVERE codeine AdvReac Intermediate GI SYMPTOMS Verified 07/18/23 23:16 oxycodone AdvReac Intermediate Nausea Verified 07/18/23 23:16 sulfamethoxazole AdvReac Intermediate Nausea Verified 07/18/23 23:16 [From Bactrim] trimethoprim [From Bactrim] AdvReac Intermediate Nausea Verified 07/18/23 23:16 valacyclovir AdvReac Intermediate severe Verified 07/18/23 23:16 back pains Consultations 07/21/23 11:03 ED Decision to Admit Stat 07/21/23 14:04 Consult Cardiology Routine Procedures Performed Operation Date: 07/22/23 13:00 Actual Procedures s Cineradiography w/Routine Exam - Rustam Orozco MD p Cath, Left w/Cors Vent Grafts(Right) - Rustam Orozco MD s Placement Art Occlusive Device - Rustam Orozco MD s Ultrasound Vascular Access - Rustam Orozco MD Ordered Studies 07/22/23 07:05 CL Cath Imgs for PACS use only Routine Hospital Course (1) Chest pain: -Patient has a Hx CAD s/p CABG x4, redo CABG x3 in the past. 1999 CABG was WOOD to LAD, SVG to diagonal, SVG to LCx OM, SVG to PDA. Repeat at [facility] 2018 CODI to OM 2, SVG to diagonal, SVG to PDA. -Presents to the hospital with chest pain. Also has a hx of frequent PVC's, has been on Amiodarone. He is now s/p cardiac cath, showing multivessel disease. 100% occlusion of LM and RCA. However, some of the Grafts are patent -Continue medical antianginal management per cardiology (2) Symptomatic PVCs: Has been on Amiodarone for many years (3) Acute hypotension: Resolved (4) Symptomatic bradycardia: Symptomatic bradycardia Patient on increased amiodarone from 300-400 for 2 days, then went back to 300 mg dose due to feeling flushed Also on carvedilol 12.5 mg twice daily, did not take any of his medications morning of 07/21 EKG as noted above junctional in the 30s, at time of bedside assessment sinus 5060 Cardiology consulted. 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 No acute change in management at this time. Statin continued as noted (6) Vertebral artery occlusion: History of vertebral artery occlusion On anticoagulation and aspirin as noted, no new strokelike deficits. No acute change in management at this time. Statin continued as noted (7) HTN (hypertension): Continue Amlodipine and Losartan (8) CAD (coronary artery disease): (9) Exertional angina: Plan DVT prophylaxis: Anticoagulated Disposition: PCU CODE STATUS: Full code Diet: Clears Total Time Total Time Spent Total Time Spent (In Minutes): 35 Discharge Plan Discharge Items Patient Disposition: Home - Self-Care Reason For Visit: CHEST PAIN,BRADYCARDIA Discharge Diagnosis: Chest pain , Bradycardia Activity: Resume your previous activity Non-emergency contact: Primary Care Provider and Art Instructor Call non-emergency contact if: you have any medication questions Follow-up/Referrals: Stan Phelps MD [Physician] - 07/23/23 2:00 pm Antonio Worthy CRNP [Nurse Practitioner] - 07/26/23 11:00 am Diet: Heart Healthy Addtl Attending Provider Instructions: please follow up with your ore storage drier today as scheduled Pending Studies at Discharge: No Stand-Alone Forms: My [facility], Smoking Cessation Medications and DC Order Prescriptions: Continued ezetimibe [Zetia] 10 mg tablet 10 mg PO HS Qty: 90 3RF allopurinol 100 mg tablet 100 mg PO QAM Qty: 90 3RF Rx Instructions: take 1 tablet by mouth once daily losartan 50 mg tablet 50 mg PO BID Qty: 180 3RF rosuvastatin [Crestor] 40 mg tablet 40 mg PO HS Qty: 90 3RF Xarelto 2.5 mg tablet 2.5 mg PO BID Qty: 180 3RF Hold Instructions: Resume on 03/19/23. nitroglycerin [Nitrostat] 0.4 mg tablet, sublingual 0.4 mg sublingual UD PRN (Reason: Angina) Qty: 30 1RF triamcinolone acetonide 0.1 % cream 1 applic topical DAILY PRN (Reason: scotal itch) lutein 20 mg tablet 20 mg PO QAM Rx Instructions: give with meal/snack magnesium 250 mg tablet 250 mg PO QAM multivitamin Tablet 1 tab PO QAM omega [id number] oil [Fish Oil] 1,200 (144-216) mg Capsule 1 cap PO QPM aspirin 81 mg tablet,delayed release (DR/EC) 81 mg PO BID amlodipine 10 mg tablet 10 mg PO QAM amiodarone 200 mg tablet See Rx Instructions .ROUTE .COMPLEX Rx Instructions: 100 mg orally in am and 200mg in pm; ascorbic acid (vitamin C) [Vitamin C] 500 mg Tablet 500 mg PO QAM carvedilol 12.5 mg tablet 12.5 mg PO BID Discharge Orders: Discharge Order (Routine); Ordered 07/23/23 Ordered By: Nickolas Willson Admission Data Admit Date/Time: 07/21/23 11:37 Attending Provider: Nickolas Willson Admit Provider: Osman Morales Primary Care Provider: Faizan Negrete Other Providers: Osman Morales ; Crispin Madrid Other Interventions: Discharge Summary Assessment (RN) Last Done: 07/23/23 09:18 Coding Level of Care Code 06254 INP/OBS DISCH >30 MIN Diagnoses Chest pain R07.9 Symptomatic PVCs I49.3 Acute hypotension I95.9 Symptomatic bradycardia R00.1 PAD (peripheral artery disease) I73.9 Vertebral artery occlusion I65.09 HTN (hypertension) I10 Hypertension type: essential hypertension CAD (coronary artery disease) I25.10 Coronary Disease-Associated Artery/Lesion type: unspecified vessel or lesion type [place] vs. transplanted heart: [place] heart Associated angina: without angina Exertional angina I20.8 Time Spent (min) 35
== END 2023-07-23 09:56 | disposition home or self-care (01) | DRG 287 ==
LOC: ED 08:57 → EDINP 11:37 → SUATTDRO 11:37 → EDINP 14:05 → 4W 15:15